=== PATIENT | male | born 1970 ===

== ENCOUNTER 2020-09-04 07:40 | Outpatient (REF) | payer OTHER, SELFPAY ==
[2020-09-04 08:45] LABS: MANUAL DIFF FLAG NO
[2020-09-04 08:52] LABS: Basophils Percent Auto 0.2 % (0-2); Eosinophils Absolute Auto 0.1 X10*3/uL (0.0-0.4); Eosinophils Percent Auto 0.9 % (0-4); Hemoglobin 15.3 g/dl (14.0-18.0); Imm Gran Abs Auto 0.07 X10*3/uL (0.00-0.03); Imm Gran Pct Auto 1.3 % (0.0-0.4); Lymphocytes Absolute Auto 1.5 X10*3/uL (1.2-4.9); Lymphocytes Percent Auto 26.8 % (20-40); Mean Corpuscular HGB Conc 33.3 g/dl (31.0-36.0); Mean Corpuscular Hemoglobin 28.7 pg (27.0-33.0); Mean Corpuscular Volume 86.1 fL (80-98); Monocytes Absolute Auto 0.6 X10*3/uL (0.1-1.2); Monocytes Percent Auto 11.4 % (2-11); Neutrophils Absolute Auto 3.3 X10*3/uL (2.0-8.3); Neutrophils Percent Auto 59.4 % (45-73); Platelet Count 305 X10*3/uL (160-400); Red Blood Count 5.34 X10*6/uL (4.60-5.80); Red Cell Distribution Width 12.6 % (11.0-16.0); White Blood Count 5.5 X10*3/uL (4.8-10.8)
[2020-09-04 09:05] LABS: Glucose Urine UA NEG (NEG); Leukocyte Esterase Urine NEG (NEG); Nitrite Urine NEG (NEG); Specific Gravity - Urine 1.025 (1.005-1.025); Urine Blood NEG (NEG); Urine Ketones NEG (NEG); Urine Protein NEG (NEG-TRACE)
[2020-09-04 09:07] LABS: Appearance Urine CLEAR; Color Urine YELLOW
[2020-09-04 09:17] LABS: Alanine Aminotransferase 41 U/L (0-40); Albumin Level 4.2 g/dL (3.5-5.0); Alkaline Phosphatase 86 U/L (39-117); Anion Gap 13 (12-20); Aspartate Amino Transferase 27 U/L (5-37); Bilirubin Total 0.4 mg/dL (0.0-1.0); Blood Urea Nitrogen 15 mg/dL (9-16); C Reactive Protein 1.96 mg/dL (< or = 0.50); Calcium 8.4 mg/dL (8.4-10.2); Carbon Dioxide 28 mmol/L (22-29); Chloride 105 mmol/L (96-108); Cholesterol 139 mg/dL; Estimated Glomerular Filt Rate > 60; Glucose Fasting 196 mg/dL (60-99); HDL Cholesterol 29 mg/dL; LDL Cholesterol Calculated 73 mg/dl; Potassium 4.4 mmol/l (3.3-5.1); Sodium 142 mmol/L (135-145); Total Protein 7.2 g/dL (6.5-8.0); Triglycerides 185 mg/dL
[2020-09-04 09:18] LABS: Creatinine Urine 124.44 mg/dL
[2020-09-04 09:41] LABS: TSH reflex Free T4 0.71 mIU/mL (0.32-4.0)
[2020-09-04 09:44] LABS: Erythrocyte Sedimentation Rate 23 MM/HR (0-15)
[2020-09-05 09:12] LABS: Lyme Abs Screen <0.90 index
[2020-09-05 21:23] LABS: Anti Nuclear Antibody Screen POSITIVE (NEGATIVE)
== END 2020-09-04 07:41 | disposition home or self-care (01) ==
LOC: HO.LAB 07:40
PROVIDERS: Visit Provider Internal Medicine
DX: R50.9 Fever, unspecified (principal); R51.9 Headache, unspecified; E78.2 Mixed hyperlipidemia; E11.9 Type 2 diabetes mellitus without complications
CPT/HCPCS: 36415; 80053; 80061; 81003; 82043; 84443; 85025; 85652; 86038; 86039; 86140; 86618; 87040

== ENCOUNTER 2020-09-10 08:17 | Outpatient (REF) | payer OTHER, SELFPAY ==
--- NOTE | 2020-09-10 08:21 | CT_ITS ---
EXAMINATION: CT HEAD WITHOUT CONTRAST CLINICAL INFORMATION: Headache COMPARISON: December 31, 2018 TECHNIQUE: Contiguous axial imaging was performed from the skull base to vertex without intravenous administration of contrast. This CT examination was performed using dose optimization techniques as appropriate, variously including the following: *Automated exposure control *Adjustment of mA and/or kV according to patient size (this includes techniques or standardized protocols for targeted exams where dose is matched to indication/reason for exam; i.e. extremities or head) *Use of iterative reconstruction technique DLP: 787 mGy-cm FINDINGS: There is no evidence of acute intracranial hemorrhage or territorial infarction. No abnormal mass effect or midline shift is seen. Ramirez to white matter differentiation is well preserved. No extra-axial fluid collections are identified. The ventricles are normal in size. There is no abnormal attenuation within the brain parenchyma. The osseous structures and soft tissues are normal. The mastoid air cells and visualized portions of the paranasal sinuses are well aerated. CT/CT head/brain wo con IMPRESSION: No acute intracranial pathology.
== END 2020-09-10 08:18 | disposition home or self-care (01) ==
LOC: HO.CT 08:17
PROVIDERS: PCP Internal Medicine; Visit Provider Internal Medicine
DX: R51.9 Headache, unspecified (principal); R50.9 Fever, unspecified
CPT/HCPCS: 70450

== ENCOUNTER 2021-03-26 15:31 | Outpatient (REF) | payer OTHER, SELFPAY ==
--- NOTE | ~2021-03-26 | XR_ITS ---
EXAMINATION: XR SHOULDER, RIGHT CLINICAL INFORMATION: Shoulder pain. COMPARISON: None. TECHNIQUE: AP external rotation, Grashey, scapular Y, and axillary views of the right shoulder. FINDINGS: There is no evidence of acute fracture or dislocation of the right shoulder. Glenohumeral joint with minimal spurring inferiorly. Acromioclavicular joint unremarkable. No evidence of calcific tendinitis. XR/XR shoulder RT min 2V IMPRESSION: Mild degenerative change without evidence of fracture, dislocation, or calcific tendinitis.
== END 2021-03-26 15:32 | disposition home or self-care (01) ==
LOC: HO.XRAY 15:31
PROVIDERS: PCP Internal Medicine; Visit Provider Internal Medicine
DX: M25.511 Pain in right shoulder (principal)
CPT/HCPCS: 73030

== ENCOUNTER → 2021-05-29 09:14 | Outpatient (BNVA) | payer OTHER, SELFPAY | PROVIDERS: Visit Provider Urology | DX: E29.1 Testicular hypofunction (principal); E11.65 Type 2 diabetes mellitus with hyperglycemia; N52.1 Erectile dysfunction due to diseases classified elsewhere | CPT/HCPCS: 99202 ==

== ENCOUNTER 2021-07-01 08:12 | Outpatient (REF) | payer OTHER, SELFPAY ==
[2021-07-01 08:33] LABS: MANUAL DIFF FLAG NO
[2021-07-01 08:51] LABS: Basophils Absolute Auto 0.1 X10*3/uL (0.0-0.2); Basophils Percent Auto 0.6 % (0-2); Eosinophils Absolute Auto 0.3 X10*3/uL (0.0-0.4); Eosinophils Percent Auto 3.7 % (0-4); Hematocrit 46.2 % (42-52); Hemoglobin 15.2 g/dl (14.0-18.0); Imm Gran Abs Auto 0.03 X10*3/uL (0.00-0.03); Imm Gran Pct Auto 0.4 % (0.0-0.4); Lymphocytes Absolute Auto 2.2 X10*3/uL (1.2-4.9); Lymphocytes Percent Auto 26.9 % (20-40); Mean Corpuscular HGB Conc 32.9 g/dl (31.0-36.0); Mean Corpuscular Hemoglobin 28.6 pg (27.0-33.0); Monocytes Absolute Auto 0.7 X10*3/uL (0.1-1.2); Monocytes Percent Auto 7.8 % (2-11); Neutrophils Absolute Auto 5.1 X10*3/uL (2.0-8.3); Neutrophils Percent Auto 60.6 % (45-73); Platelet Count 343 X10*3/uL (160-400); Red Blood Count 5.31 X10*6/uL (4.60-5.80); Red Cell Distribution Width 13.1 % (11.0-16.0); White Blood Count 8.3 X10*3/uL (4.8-10.8)
[2021-07-01 08:53] LABS: Appearance Urine CLEAR; Color Urine YELLOW; Glucose Urine UA NEG (NEG); Leukocyte Esterase Urine NEG (NEG); Nitrite Urine NEG (NEG); Specific Gravity - Urine 1.025 (1.005-1.025); UACC Culture Trigger NO; Urine Blood TRACE (NEG); Urine Ketones NEG (NEG); Urine Protein NEG (NEG-TRACE)
[2021-07-01 09:02] LABS: Estimated Average Glucose 166 mg/dL; Hemoglobin A1c % 7.4 %
[2021-07-01 09:08] LABS: Creatinine Urine 142.18 mg/dL
[2021-07-01 09:14] LABS: Alanine Aminotransferase 26 U/L (0-40); Albumin Level 4.3 g/dL (3.5-5.0); Alkaline Phosphatase 78 U/L (39-117); Anion Gap 12 (12-20); Aspartate Amino Transferase 18 U/L (5-37); Bilirubin Total 0.5 mg/dL (0.0-1.0); Blood Urea Nitrogen 11 mg/dL (9-16); Calcium 9.4 mg/dL (8.4-10.2); Carbon Dioxide 26 mmol/L (22-29); Chloride 107 mmol/L (96-108); Cholesterol 166 mg/dL; Estimated Glomerular Filt Rate > 60; Glucose Fasting 179 mg/dL (60-99); HDL Cholesterol 29 mg/dL; LDL Cholesterol Calculated 89 mg/dl; Potassium 4.4 mmol/L (3.3-5.1); Sodium 141 mmol/L (135-145); Total Protein 7.2 g/dL (6.5-8.0); Triglycerides 244 mg/dL
[2021-07-01 09:18] LABS: Uric Acid 7.9 mg/dL (3.4-7.0)
[2021-07-01 09:34] LABS: Erythrocyte Sedimentation Rate 2 MM/HR (0-15)
[2021-07-01 09:41] LABS: TSH reflex Free T4 0.69 uIU/mL (0.32-4.0)
[2021-07-01 10:30] LABS: RBC Urine 0-2 /HPF (0); Squamous Epithelial Cell Urine TRACE /LPF; WBC Urine 0 /HPF (0-4)
[2021-07-02 11:11] LABS: Sex Hormone Binding Globulin 14 nmol/L (10-50)
[2021-07-02 20:16] LABS: Follicle Stimulating Hormone 9.8 mIU/mL (1.6-8.0); Lutenizing Hormone 4.4 mIU/mL (1.5-9.3)
[2021-07-05 18:12] LABS: Testosterone, Free 68.7 pg/mL (35.0-155.0); Testosterone, Total 324 ng/dL (250-1100)
== END 2021-07-01 08:13 | disposition home or self-care (01) ==
LOC: HO.LAB 08:12
PROVIDERS: PCP Internal Medicine; Visit Provider Urology
DX: E29.1 Testicular hypofunction (principal); M10.00 Idiopathic gout, unspecified site; E11.9 Type 2 diabetes mellitus without complications; E66.9 Obesity, unspecified
CPT/HCPCS: 36415; 80053; 80061; 81001; 81003; 82043; 83001; 83002; 83036; 84270; 84402; 84403; 84443; 84550; 85025; 85652

== ENCOUNTER → 2021-07-12 08:32 | Outpatient (BNVA) | payer OTHER, SELFPAY | PROVIDERS: Visit Provider Urology ==

== ENCOUNTER → 2021-11-26 13:26 | Outpatient (BNVA) | payer OTHER, SELFPAY | PROVIDERS: PCP Internal Medicine; Visit Provider Urology ==

== ENCOUNTER 2022-02-27 07:49 | Outpatient (REF) | payer OTHER, SELFPAY ==
[2022-02-27 08:09] LABS: MANUAL DIFF FLAG NO
[2022-02-27 08:43] LABS: Basophils Absolute Auto 0.1 X10*3/uL (0.0-0.2); Basophils Percent Auto 0.7 % (0-2); Eosinophils Absolute Auto 0.2 X10*3/uL (0.0-0.4); Eosinophils Percent Auto 3.4 % (0-4); Hematocrit 46.6 % (42.0-52.0); Imm Gran Abs Auto 0.05 X10*3/uL (0.00-0.03); Imm Gran Pct Auto 0.7 % (0.0-0.4); Lymphocytes Percent Auto 27.4 % (20-40); Mean Corpuscular HGB Conc 32.2 g/dl (31.0-36.0); Mean Corpuscular Hemoglobin 28.1 pg (27.0-33.0); Mean Corpuscular Volume 87.3 fL (80.0-98.0); Mean Platelet Volume 9.6 fL (9.4-12.4); Monocytes Absolute Auto 0.6 X10*3/uL (0.1-1.2); Monocytes Percent Auto 8.4 % (2-11); Neutrophils Absolute Auto 4.2 x10*3/uL (2.0-8.3); Neutrophils Percent Auto 59.4 % (45-73); Platelet Count 324 X10*3/uL (160-400); Red Blood Count 5.34 X10*6/uL (4.60-5.80); Red Cell Distribution Width 13.6 % (11.0-16.0); White Blood Count 7.1 X10*3/uL (4.8-10.8)
[2022-02-27 08:54] LABS: Estimated Average Glucose 137 mg/dL; Hemoglobin A1c % 6.4 %
[2022-02-27 09:00] LABS: Appearance Urine CLEAR; Color Urine YELLOW; Glucose Urine UA NEG (NEG); Leukocyte Esterase Urine NEG (NEG); Nitrite Urine NEG (NEG); UACC Culture Trigger NO; Urine Blood TRACE (NEG); Urine Ketones NEG (NEG); Urine Protein NEG (NEG-TRACE)
[2022-02-27 09:12] LABS: Alanine Aminotransferase 19 U/L (0-40); Albumin Level 4.4 g/dL (3.5-5.0); Alkaline Phosphatase 73 U/L (39-117); Anion Gap 12 (12-20); Aspartate Amino Transferase 15 U/L (5-37); Bilirubin Total 0.7 mg/dL (0.0-1.0); Blood Urea Nitrogen 21 mg/dL (9-16); Calcium 9.5 mg/dL (8.4-10.2); Carbon Dioxide 28 mmol/L (22-29); Chloride 103 mmol/L (96-108); Cholesterol 147 mg/dL; Estimated Glomerular Filt Rate > 60; Glucose Fasting 137 mg/dL (60-99); HDL Cholesterol 36 mg/dL; LDL Cholesterol Calculated 87 mg/dl; Potassium 4.3 mmol/L (3.3-5.1); Sodium 139 mmol/L (135-145); Total Protein 7.1 g/dL (6.5-8.0); Triglycerides 121 mg/dL
[2022-02-27 09:17] LABS: WBC Urine 0 /HPF (0-4)
[2022-02-27 09:31] LABS: TSH reflex Free T4 0.66 uIU/mL (0.32-4.0); Vitamin D 25-OH Total 26.2 ng/mL (>30)
[2022-02-27 09:58] LABS: Creatinine Urine 76.95 mg/dL; Microalbumin Urine < 5.0 mg/L
== END 2022-02-27 07:50 | disposition home or self-care (01) ==
LOC: HO.LAB 07:49
PROVIDERS: PCP Internal Medicine; Visit Provider Internal Medicine
DX: E78.00 Pure hypercholesterolemia, unspecified (principal); I10 Essential (primary) hypertension; E55.9 Vitamin D deficiency, unspecified; M10.9 Gout, unspecified; E11.9 Type 2 diabetes mellitus without complications
CPT/HCPCS: 36415; 80053; 80061; 81001; 81003; 82043; 82306; 83036; 84443; 84550; 85025

== ENCOUNTER 2022-07-11 07:30 | Outpatient (REF) | payer OTHER, SELFPAY ==
[2022-07-11 07:40] LABS: MANUAL DIFF FLAG NO
[2022-07-11 09:00] LABS: Basophils Absolute Auto 0.1 X10*3/uL (0.0-0.2); Basophils Percent Auto 0.8 % (0-2); Eosinophils Absolute Auto 0.3 X10*3/uL (0.0-0.4); Eosinophils Percent Auto 3.7 % (0-4); Hematocrit 47.6 % (42.0-52.0); Hemoglobin 15.7 g/dl (14.0-18.0); Imm Gran Abs Auto 0.03 X10*3/uL (0.00-0.03); Imm Gran Pct Auto 0.4 % (0.0-0.4); Lymphocytes Absolute Auto 2.4 X10*3/uL (1.2-4.9); Lymphocytes Percent Auto 28.1 % (20-40); Mean Corpuscular Hemoglobin 28.9 pg (27.0-33.0); Mean Corpuscular Volume 87.7 fL (80.0-98.0); Mean Platelet Volume 9.8 fL (9.4-12.4); Monocytes Absolute Auto 0.6 X10*3/uL (0.1-1.2); Monocytes Percent Auto 7.7 % (2-11); Neutrophils Percent Auto 59.3 % (45-73); Platelet Count 356 X10*3/uL (160-400); Red Blood Count 5.43 X10*6/uL (4.60-5.80); White Blood Count 8.4 X10*3/uL (4.8-10.8)
[2022-07-11 09:09] LABS: Estimated Average Glucose 140 mg/dL; Hemoglobin A1c % 6.5 %
[2022-07-11 09:24] LABS: Appearance Urine Clear; Color Urine Yellow; Glucose Urine UA Negative (Negative); Leukocyte Esterase Urine Negative (Negative); Nitrite Urine Negative (Negative); Urine Blood Negative (Negative); Urine Ketones Negative (Negative); Urine Protein Negative (Neg-Trace)
[2022-07-11 09:37] LABS: Alanine Aminotransferase 21 U/L (0-40); Albumin Level 4.6 g/dL (3.5-5.0); Alkaline Phosphatase 75 U/L (39-117); Anion Gap 17 (12-20); Aspartate Amino Transferase 17 U/L (5-37); Bilirubin Total 0.9 mg/dL (0.0-1.0); Blood Urea Nitrogen 23 mg/dL (9-16); Calcium 9.8 mg/dL (8.4-10.2); Carbon Dioxide 26 mmol/L (22-29); Chloride 102 mmol/L (96-108); Cholesterol 179 mg/dL; Estimated Glomerular Filt Rate > 60; Glucose Fasting 148 mg/dL (60-99); HDL Cholesterol 36 mg/dL; LDL Cholesterol Calculated 103 mg/dl; Potassium 4.6 mmol/L (3.3-5.1); Sodium 140 mmol/L (135-145); Total Protein 7.7 g/dL (6.5-8.0); Triglycerides 203 mg/dL; Uric Acid 8.2 mg/dL (3.4-7.0)
[2022-07-11 09:48] LABS: TSH reflex Free T4 0.68 uIU/mL (0.32-4.0); Vitamin D 25-OH Total 37.2 ng/mL (>30)
== END 2022-07-11 07:31 | disposition home or self-care (01) ==
LOC: HO.LAB 07:30
PROVIDERS: PCP Internal Medicine; Visit Provider Internal Medicine
DX: E78.00 Pure hypercholesterolemia, unspecified (principal); E11.9 Type 2 diabetes mellitus without complications; M10.9 Gout, unspecified; E55.9 Vitamin D deficiency, unspecified; I10 Essential (primary) hypertension
CPT/HCPCS: 36415; 80053; 80061; 81003; 82306; 83036; 84443; 84550; 85025

== ENCOUNTER 2022-11-21 07:29 | Outpatient (REF) | payer OTHER, SELFPAY ==
[2022-11-21 07:42] LABS: MANUAL DIFF FLAG NO
[2022-11-21 08:13] LABS: Basophils Absolute Auto 0.1 X10*3/uL (0.0-0.2); Basophils Percent Auto 0.8 % (0-2); Eosinophils Absolute Auto 0.3 X10*3/uL (0.0-0.4); Eosinophils Percent Auto 4.3 % (0-4); Hematocrit 45.5 % (42.0-52.0); Hemoglobin 15.3 g/dl (14.0-18.0); Imm Gran Abs Auto 0.03 X10*3/uL (0.00-0.03); Imm Gran Pct Auto 0.4 % (0.0-0.4); Lymphocytes Absolute Auto 2.4 X10*3/uL (1.2-4.9); Lymphocytes Percent Auto 29.6 % (20-40); Mean Corpuscular HGB Conc 33.6 g/dl (31.0-36.0); Mean Corpuscular Hemoglobin 28.7 pg (27.0-33.0); Mean Corpuscular Volume 85.4 fL (80.0-98.0); Mean Platelet Volume 9.7 fL (9.4-12.4); Monocytes Absolute Auto 0.6 X10*3/uL (0.1-1.2); Neutrophils Absolute Auto 4.5 x10*3/uL (2.0-8.3); Neutrophils Percent Auto 56.9 % (45-73); Platelet Count 340 X10*3/uL (160-400); Red Blood Count 5.33 X10*6/uL (4.60-5.80); Red Cell Distribution Width 12.6 % (11.0-16.0)
[2022-11-21 08:25] LABS: Estimated Average Glucose 148 mg/dL; Hemoglobin A1c % 6.8 %
[2022-11-21 08:47] LABS: Alanine Aminotransferase 31 U/L (0-40); Albumin Level 4.4 g/dL (3.5-5.0); Alkaline Phosphatase 75 U/L (39-117); Anion Gap 13 (12-20); Aspartate Amino Transferase 20 U/L (5-37); Bilirubin Total 0.7 mg/dL (0.0-1.0); Blood Urea Nitrogen 18 mg/dL (9-16); Calcium 9.3 mg/dL (8.4-10.2); Carbon Dioxide 28 mmol/L (22-29); Chloride 104 mmol/L (96-108); Cholesterol 170 mg/dL; Estimated Glomerular Filt Rate > 60; Glucose Fasting 144 mg/dL (60-99); HDL Cholesterol 33 mg/dL; LDL Cholesterol Calculated 101 mg/dl; Potassium 4.5 mmol/L (3.3-5.1); Sodium 140 mmol/L (135-145); Total Protein 7.1 g/dL (6.5-8.0); Triglycerides 183 mg/dL
[2022-11-21 08:53] LABS: Appearance Urine Clear; Color Urine Yellow; Glucose Urine UA Negative (Negative); Leukocyte Esterase Urine Negative (Negative); Nitrite Urine Negative (Negative); Urine Blood Negative (Negative); Urine Ketones Negative (Negative); Urine Protein Negative (Neg-Trace)
[2022-11-21 09:20] LABS: TSH reflex Free T4 0.61 uIU/mL (0.32-4.0); Vitamin D 25-OH Total 43.5 ng/mL (>30)
[2022-11-21 09:30] LABS: Creatinine Urine 106.55 mg/dL; Microalbumin Urine < 5.0 mg/L
== END 2022-11-21 07:30 | disposition home or self-care (01) ==
LOC: HO.LAB 07:29
PROVIDERS: PCP Internal Medicine; Visit Provider Internal Medicine
DX: E78.00 Pure hypercholesterolemia, unspecified (principal); I10 Essential (primary) hypertension; E11.9 Type 2 diabetes mellitus without complications; M10.9 Gout, unspecified; R30.0 Dysuria; E55.9 Vitamin D deficiency, unspecified
CPT/HCPCS: 36415; 80053; 80061; 81003; 82043; 82306; 83036; 84443; 84550; 85025

== ENCOUNTER 2022-12-16 13:25 | Outpatient (REF) | payer OTHER, SELFPAY ==
--- NOTE | ~2022-12-16 | XR_ITS ---
EXAMINATION: XR CERVICAL SPINE CLINICAL INFORMATION: Neck pain COMPARISON: None available. TECHNIQUE: 3 views of the cervical spine were obtained. FINDINGS: Bone alignment is normal. No fracture or dislocation. Mild degenerative spondylosis at C 5 6 and C6-C7. Normal disc spaces. Normal prevertebral soft tissues. XR/XR cervical spine 2V IMPRESSION: Mild degenerative changes.
== END 2022-12-16 13:26 | disposition home or self-care (01) ==
LOC: HO.XRAY 13:25
PROVIDERS: PCP Internal Medicine; Visit Provider Nurse Practitioner Family
DX: M54.2 Cervicalgia (principal)
CPT/HCPCS: 72040

== ENCOUNTER 2022-12-29 15:01 | Outpatient (REF) | payer OTHER, SELFPAY ==
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
== END 2022-12-29 15:02 | disposition home or self-care (01) ==
LOC: HO.CT 15:01
PROVIDERS: PCP Internal Medicine; Visit Provider Nurse Practitioner Family
DX: R51.9 Headache, unspecified (principal); M54.6 Pain in thoracic spine; V89.2XXA Person injured in unspecified motor-vehicle accident, traffic, initial encounter
CPT/HCPCS: 70450; 72070

== ENCOUNTER 2023-05-11 06:59 | Outpatient (REF) | payer OTHER, SELFPAY ==
[2023-05-11 07:09] LABS: MANUAL DIFF FLAG NO
[2023-05-11 07:25] LABS: Basophils Absolute Auto 0.1 X10*3/uL (0.0-0.2); Basophils Percent Auto 0.8 % (0-2); Eosinophils Absolute Auto 0.3 X10*3/uL (0.0-0.4); Eosinophils Percent Auto 3.8 % (0-4); Hematocrit 47.5 % (42.0-52.0); Hemoglobin 15.8 g/dl (14.0-18.0); Imm Gran Abs Auto 0.04 X10*3/uL (0.00-0.03); Imm Gran Pct Auto 0.5 % (0.0-0.4); Lymphocytes Absolute Auto 2.3 X10*3/uL (1.2-4.9); Lymphocytes Percent Auto 26.7 % (20-40); Mean Corpuscular HGB Conc 33.3 g/dl (31.0-36.0); Mean Corpuscular Hemoglobin 29.1 pg (27.0-33.0); Mean Corpuscular Volume 87.5 fL (80.0-98.0); Monocytes Absolute Auto 0.8 X10*3/uL (0.1-1.2); Monocytes Percent Auto 9.1 % (2-11); Neutrophils Absolute Auto 5.1 x10*3/uL (2.0-8.3); Neutrophils Percent Auto 59.1 % (45-73); Platelet Count 335 X10*3/uL (160-400); Red Blood Count 5.43 X10*6/uL (4.60-5.80); Red Cell Distribution Width 13.1 % (11.0-16.0); White Blood Count 8.7 X10*3/uL (4.8-10.8)
[2023-05-11 07:27] LABS: Estimated Average Glucose 134 mg/dL; Hemoglobin A1c % 6.3 %
[2023-05-11 07:37] LABS: Appearance Urine Clear; Color Urine Yellow; Glucose Urine UA Negative (Negative); Leukocyte Esterase Urine Negative (Negative); Nitrite Urine Negative (Negative); PH 5.5 (5.0-9.0); Specific Gravity - Urine 1.025 (1.005-1.025); UMIC TRIGGER UACC YES; Urine Blood Trace (Negative); Urine Ketones Negative (Negative); Urine Protein Negative (Neg-Trace)
[2023-05-11 07:45] LABS: Bacteria Urine None Seen (None Seen); Hyaline Casts Urine 0-2 /LPF (0-2); RBC Urine 0-2 /HPF (0-2); Squamous Epithelial Cell Urine 0-2 /HPF (0-2); WBC Urine 0-5 /HPF (0-5)
[2023-05-11 07:50] LABS: Alanine Aminotransferase 33 U/L (0-40); Albumin Level 4.2 g/dL (3.5-5.0); Alkaline Phosphatase 74 U/L (39-117); Anion Gap 13 (12-20); Aspartate Amino Transferase 19 U/L (5-37); Bilirubin Total 0.4 mg/dL (0.0-1.0); Blood Urea Nitrogen 15 mg/dL (9-16); Calcium 9.4 mg/dL (8.4-10.2); Carbon Dioxide 27 mmol/L (22-29); Chloride 105 mmol/L (96-108); Cholesterol 198 mg/dL; Estimated Glomerular Filt Rate > 60; Glucose Fasting 160 mg/dL (60-99); HDL Cholesterol 37 mg/dL; LDL Cholesterol Calculated 118 mg/dl; Potassium 4.1 mmol/L (3.3-5.1); Sodium 141 mmol/L (135-145); Total Protein 7.3 g/dL (6.5-8.0); Triglycerides 218 mg/dL; Uric Acid 9.5 mg/dL (3.4-7.0)
[2023-05-11 07:50] LABS: Creatinine Urine 121.24 mg/dL; Microalbumin Urine < 5.0 mg/L
[2023-05-11 08:05] LABS: TSH reflex Free T4 0.48 uIU/mL (0.32-4.0); Vitamin D 25-OH Total 49.5 ng/mL (>30)
== END 2023-05-11 07:00 | disposition home or self-care (01) ==
LOC: HO.LAB 06:59
PROVIDERS: PCP Internal Medicine; Visit Provider Internal Medicine
DX: Z00.00 Encounter for general adult medical examination without abnormal findings (principal); E55.9 Vitamin D deficiency, unspecified; M10.9 Gout, unspecified; E78.00 Pure hypercholesterolemia, unspecified; E11.9 Type 2 diabetes mellitus without complications; I10 Essential (primary) hypertension; R30.0 Dysuria
CPT/HCPCS: 36415; 80053; 80061; 81001; 82043; 82306; 83036; 84153; 84443; 84550; 85025

== ENCOUNTER 2023-05-13 14:38 | Outpatient (AMB) | payer OTHER, SELFPAY ==
[2023-05-13 14:50] VITALS: BP 116/78; PULSE 69; O2SAT 99; BMI 28.5
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
== END 2023-05-13 16:10 | disposition home or self-care (01) ==
PROVIDERS: PCP Internal Medicine; Visit Provider Internal Medicine
DX: Z00.00 Encounter for general adult medical examination without abnormal findings (principal); E11.9 Type 2 diabetes mellitus without complications; E78.2 Mixed hyperlipidemia; E55.9 Vitamin D deficiency, unspecified; M10.00 Idiopathic gout, unspecified site; M25.562 Pain in left knee; N52.9 Male erectile dysfunction, unspecified; E66.3 Overweight; Z12.11 Encounter for screening for malignant neoplasm of colon
CPT/HCPCS: 99396

== ENCOUNTER 2023-06-12 12:16 | Outpatient (AMB) | payer OTHER, SELFPAY ==
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
== END 2023-06-12 16:05 | disposition home or self-care (01) ==
LOC: HO.HUSH 12:16
PROVIDERS: PCP Internal Medicine; Visit Provider Urology
DX: E29.1 Testicular hypofunction (principal); E11.69 Type 2 diabetes mellitus with other specified complication; N52.1 Erectile dysfunction due to diseases classified elsewhere
CPT/HCPCS: 99214

== ENCOUNTER → 2023-06-12 12:16 | Outpatient (BNVA) | payer OTHER, SELFPAY | PROVIDERS: PCP Internal Medicine; Visit Provider Urology ==

== ENCOUNTER 2023-06-13 08:16 | Outpatient (REF) | payer OTHER, SELFPAY ==
[2023-06-13 09:08] LABS: Appearance Urine Clear; Color Urine Yellow; Glucose Urine UA Negative (Negative); Leukocyte Esterase Urine Negative (Negative); Nitrite Urine Negative (Negative); PH 6.5 (5.0-9.0); Urine Blood Negative (Negative); Urine Ketones Negative (Negative); Urine Protein Negative (Neg-Trace)
[2023-06-13 09:30] LABS: Alanine Aminotransferase 21 U/L (0-40); Albumin Level 4.2 g/dL (3.5-5.0); Alkaline Phosphatase 77 U/L (39-117); Anion Gap 17 (12-20); Aspartate Amino Transferase 18 U/L (5-37); Bilirubin Total 0.5 mg/dL (0.0-1.0); Blood Urea Nitrogen 19 mg/dL (9-16); Calcium 9.4 mg/dL (8.4-10.2); Carbon Dioxide 24 mmol/L (22-29); Chloride 104 mmol/L (96-108); Cholesterol 151 mg/dL (<200); Estimated Glomerular Filt Rate > 60; Glucose Fasting 158 mg/dL (60-99); HDL Cholesterol 34 mg/dL (>40); LDL Cholesterol Calculated 93 mg/dL (<100); Potassium 4.5 mmol/L (3.3-5.1); Sodium 140 mmol/L (135-145); Total Protein 7.5 g/dL (6.5-8.0); Triglycerides 124 mg/dL (<150); Uric Acid 8.7 mg/dL (3.4-7.0)
[2023-06-13 10:52] LABS: Estimated Average Glucose 140 mg/dL; Hemoglobin A1c % 6.5 % (<6.0)
[2023-06-15 06:34] LABS: Follicle Stimulating Hormone 11.5 mIU/mL (1.6-8.0); Sex Hormone Binding Globulin 15 nmol/L (10-50)
[2023-06-18 10:14] LABS: Testosterone, Total 352 ng/dL (250-1100)
== END 2023-06-13 08:17 | disposition home or self-care (01) ==
LOC: HO.LAB 08:16
PROVIDERS: PCP Internal Medicine; Visit Provider Urology
DX: Z00.00 Encounter for general adult medical examination without abnormal findings (principal); E29.1 Testicular hypofunction; R68.82 Decreased libido; E11.69 Type 2 diabetes mellitus with other specified complication; N52.1 Erectile dysfunction due to diseases classified elsewhere; M10.9 Gout, unspecified; E78.00 Pure hypercholesterolemia, unspecified; E11.9 Type 2 diabetes mellitus without complications; R30.0 Dysuria
CPT/HCPCS: 36415; 80053; 80061; 81003; 83001; 83002; 83036; 84270; 84402; 84403; 84550

== ENCOUNTER 2023-07-07 13:21 | Outpatient (AMB) | payer OTHER, SELFPAY ==
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
== END 2023-07-07 15:30 | disposition home or self-care (01) ==
LOC: HO.HUSH 13:21
PROVIDERS: PCP Internal Medicine; Visit Provider Urology
DX: E11.69 Type 2 diabetes mellitus with other specified complication (principal); N52.1 Erectile dysfunction due to diseases classified elsewhere
CPT/HCPCS: 99213

== ENCOUNTER → 2023-07-07 13:21 | Outpatient (BNVA) | payer OTHER, SELFPAY | PROVIDERS: PCP Internal Medicine; Visit Provider Urology ==

== ENCOUNTER 2023-07-16 15:16 | Outpatient (AMB) | payer OTHER, SELFPAY ==
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
[2023-07-16 15:20] VITALS: BP 103/69; PULSE 65; BMI 26.7
== END 2023-07-16 15:55 | disposition home or self-care (01) ==
PROVIDERS: PCP Internal Medicine; Visit Provider Nurse Practitioner
DX: Z01.818 Encounter for other preprocedural examination (principal)
CPT/HCPCS: 99203

== ENCOUNTER → 2023-07-16 15:16 | Outpatient (BNVA) | payer OTHER, SELFPAY | PROVIDERS: PCP Internal Medicine; Visit Provider Nurse Practitioner | DX: Z12.11 Encounter for screening for malignant neoplasm of colon (principal) | CPT/HCPCS: 99202 ==

== ENCOUNTER 2023-09-10 11:15 | Outpatient (AMB) | payer OTHER, SELFPAY ==
--- NOTE | 2023-09-10 11:26 | MHC.PC.OV ---
Vital Signs 09/10/23 11:27 Height 5 ft 10 in Weight 185 lb 8 oz BMI 26.6 BP 110/68 Blood Pressure Location Lt brachial Position Sitting Pulse 71 Pulse Source Pulse Oximeter Pulse Oximetry (%) 96 Oxygen Delivery Method Room Air Intake Visit Reasons: 4 month f/u Cause Analyst Required: No Accompanied by: Self / Same As Patient Allergies No Known Allergies Allergy (Verified 09/10/23 11:57) Medication List - Last Reconciled 09/10/23 by Juan Ngo MD allopurinol 300 mg PO DAILY PRN blood sugar diagnostic (FreeStyle Lite Strips) As directed once a day - Dx: E11.9 -- diabetes blood-glucose meter (FreeStyle Lite Meter kit) As directed - Dx: E11.9 -- diabetes cholecalciferol (vitamin D3) 50 mcg PO DAILY 90 days colchicine 0.6 mg PO DAILY PRN cyclobenzaprine 5 mg PO TID PRN indomethacin 50 mg PO BID PRN 30 days lancets (FreeStyle Lancets) As directed metformin ER 1,000 mg (2 x 500 mg) PO BID peg 3350-electrolytes 236-22.74-6.74 -5.86 gram (Golytely) 240 mL PO Q10M 1 day sildenafil 100 mg PO ONCE PRN 30 days sitagliptin phosphate (Januvia) 100 mg PO DAILY 90 days tadalafil 10 mg PO DAILY 90 days Tobacco use date assessed: 09/10/23 Dental Screening Dental Screen Date: 09/10/23 Did you have a dental visit in the last 12 months?: Yes Did you have a dental problem in the last 6 months where you did not have access to dental care?: No Was dental information given to patient?: Patient has dentist HPI 4 month f/u HPI Details Patient comes in today for his follow up visit States that he feels okay He denies any headaches or dizziness Denies any chest pains, no SOB No nausea/vomiting, no abdominal pain No change in bowel habits noted Had his follow up labs done a few months ago; has no other labs done recently He is now scheduled for his screening colonoscopy on 12/31/23 [facility] Medical History (Updated 09/10/23 @ 12:01 by Juan Ngo MD) Erectile dysfunction Gout Obesity (BMI 30-39.9) Mixed hyperlipidemia Diabetes mellitus Surgical History History of eye surgery Family History Father No problems noted. 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 1. Little interest or pleasure in doing things: not at all 2. Feeling down, depressed, or hopeless: not at all 3. Trouble falling or staying asleep, or sleeping too much: not at all 4. Feeling tired or having little energy: not at all 5. Poor appetite or overeating: not at all 6. Feeling bad about yourself - or that you are a failure or have let yourself or your family down: not at all 7. Trouble concentrating on things, such as reading the newspaper or watching television: not at all 8. Moving or speaking so slowly that other people could have noticed. Or the opposite - being so fidgety or restless that you have been moving around a lot more than usual: not at all 9. Thoughts that you would be better off or of hurting yourself in some way: not at all Total score: 0 Depression Screening Interpretation: Negative Depression Screening Done: Yes 53883 - PHQ-9 Billing: Yes Source: Developed by Drs. Thuan Merchant, Shana Coppola, Agustín Jane and colleagues, with an educational yamil from [employer]. Thrive Questionnaire Date Thrive assessed: 09/10/23 I am a: Patient What is your living situation today?: I have a steady place to live Within the past 12 months, did the food you bought not last and you didn't have the money to get more?: Never true Within the past 12 months, did you worry whether your food would run out before you got money to buy more?: Never true Do you have trouble paying for medicines?: No Do you have trouble getting transportation to medical appointments?: No Do you have trouble paying your heating and electricity bill?: No Do you have trouble taking care of your child, family member or friend?: No Do you have trouble with day-to-day activities such as bathing, preparing meals, shopping, managing finances, etc.?: No Are you currently unemployed and looking for a job?: No Are you interested in more education?: No Please select the resources that you would like help with: None Currently or been in a relationship where the following occur: no concerns reported AUDIT C Alcohol Use Questionnaire (AUDIT-C) 1. How often do you have a drink containing alcohol?: Never 3. How often do you have six or more drinks on one occasion?: Never Total Score: 0 Score Reviewed/Action Taken: Yes MEJIA-7 AMB Questionnaire MEJIA-7 Date MEJIA - 7 assessed: 09/10/23 Feeling nervous, anxious, or on edge: 0 = Not at all Not being able to stop or control worryin = Not at all Worrying too much about different things: 0 = Not at all Trouble relaxin = Not at all Being so restless that it is hard to sit still: 0 = Not at all Becoming easily annoyed or irritable: 0 = Not at all Feeling afraid as if something awful might happen: 0 = Not at all Total MEJIA-7 score (0-4 normal; 5-9 mild; 10-14 moderate; 15-21 severe): 0 Source: Developed by Drs. Thuan Merchant, Shana Coppola, Agustín Jane and colleagues, with an educational yamil from [employer]. Review of Systems Const Denies fatigue, Denies fever(s) and Denies headache(s) ENT Denies dysphagia, Denies dizziness, Denies otalgia, Denies headache(s), Denies neck pain, Denies odynophagia and Denies sore throat Card Denies chest pain, Denies palpitations and Denies dyspnea Resp Denies cough and Denies dyspnea GI Denies abdominal pain, Denies constipation, Denies dysphagia, Denies heartburn, Denies diarrhea, Denies nausea, Denies odynophagia and Denies vomiting Denies dysuria, Denies nocturia and Denies urinary frequency Musc Denies back pain and Denies neck pain Skin/Breast Denies rash Neuro Denies dizziness and Denies headache(s) Endo Denies fatigue and Denies palpitations Physical exam (Primary Care) Vital Signs: Last Vital Signs Pulse 71 09/10/23 11:27 BP 110/68 09/10/23 11:27 Pulse Ox 96 09/10/23 11:27 Oxygen Delivery Method Room Air 09/10/23 11:27 BMI result Body Mass Index 26.6 Tobacco/Smoking Status: Tobacco use Status Tobacco use date assessed 09/10/23 09/10/23 11:28 Patient Tobacco Use Status Never used Tobacco 09/10/23 11:28 e-Cigarette/Vaping Use Never Used 09/10/23 11:28 PHQ-9: PHQ-9 Score PHQ-9: Total score 0 09/10/23 12:09 Depression Screening Interpretation: Negative Thrive Assessment: Date of Thrive Assessment Date Thrive assessed 09/10/23 09/10/23 11:28 Currently or been in a relationship where the following occur: no concerns reported Const General: no acute distress and alert HENMT Ears: TM's normal bilaterally and EAC's normal Throat: Yes posterior oropharynx normal and Yes tonsils normal (no TP congestion) Neck Neck: Yes no lymphadenopathy and Yes supple Resp Auscultation: clear to auscultation bilaterally, no rales and no wheezes Cardio Rate: regular rate Rhythm: regular rhythm Heart sounds: no murmurs GI Palpation (GI): Soft to palpation, nontender and No hepatosplenomegaly present Skin General skin exam: no rashes or lesions noted Extrem General: Yes no clubbing, cyanosis or edema Results AMB Hemoglobin A1c AMB Hemoglobin A1c 6.4 % Last Edit by Melissa Peres on 09/10/23 12:10 Results Reviewed Results Reviewed: Laboratory Last Values Hgb A1c (Clinic) 6.4 % (4.0-6.0) H 09/10/23 12:01 Laboratory Tests 05/11/23 05/11/23 05/11/23 07:08 07:08 07:08 WBC 8.7 Hgb 15.8 Hct 47.5 Plt Count 335 Sodium Potassium Creatinine Estimated GFR Fasting Glucose Hemoglobin A1c % Uric Acid Calcium AST ALT Triglycerides Cholesterol LDL Cholesterol, Calc HDL Cholesterol PSA Screen 1.10 25-OH Vitamin D Total 49.5 TSH 0.48 Total Testosterone Ur Specific [place] Urine Protein Urine Glucose (UA) Urine Blood 06/13/23 06/13/23 06/13/23 08:47 08:47 08:47 WBC Hgb Hct Plt Count Sodium 140 Potassium 4.5 Creatinine 0.98 Estimated GFR > 60 Fasting Glucose 158 H Hemoglobin A1c % 6.5 H Uric Acid 8.7 H Calcium 9.4 AST 18 ALT 21 Triglycerides 124 Cholesterol 151 LDL Cholesterol, Calc 93 HDL Cholesterol 34 L PSA Screen 25-OH Vitamin D Total TSH Total Testosterone 352 Ur Specific [place] Urine Protein Urine Glucose (UA) Urine Blood 06/13/23 06/13/23 08:48 08:48 WBC Hgb Hct Plt Count Sodium Potassium Creatinine Estimated GFR Fasting Glucose Hemoglobin A1c % Uric Acid Calcium AST ALT Triglycerides Cholesterol LDL Cholesterol, Calc HDL Cholesterol PSA Screen 25-OH Vitamin D Total TSH Total Testosterone Ur Specific [place] 1.020 Urine Protein Negative Urine Glucose (UA) Negative Urine Blood Negative Assessment and Plan Assessment & Plan (1) Diabetes mellitus: Code(s): E11.9 - Type 2 diabetes mellitus without complications Qualifiers: Diabetes mellitus complication status: without complication 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: without 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 use Diabetes mellitus type: type 2 Qualified Code(s): E11.9 - Type 2 diabetes mellitus without complications Plan: In-office HgbA1c done today is at 6.4% (HgbA1c was at 6.3% a few months ago) - goal is < 7.0% Reinforced diabetic diet Continue Januvia 100 mg QD in AM and Metformin ER 500 mg 2 tablets (1000 mg) BID (2) Mixed hyperlipidemia: Code(s): E78.2 - Mixed hyperlipidemia Plan: Reinforced low cholesterol diet Will recheck his labs and fasting lipids in 4 months for follow up (3) Gout: Code(s): M10.9 - Gout, unspecified Qualifiers: Chronicity: unspecified Gout etiology: idiopathic Gout site: unspecified site Qualified Code(s): M10.00 - Idiopathic gout, unspecified site Plan: Reinforced low purine diet Serum uric acid level was still elevated at 8.7 when last checked in May 2023 He still reports NO acute gout flare ups lately Continue Allopurinol 300 mg QD and Colchicine 0.6 mg BID Continue Indomethacin 50 mg BID PRN Will recheck his serum uric acid level in 4 months for follow up (4) Left knee pain: Code(s): M25.562 - Pain in left knee Qualifiers: Chronicity: unspecified Qualified Code(s): M25.562 - Pain in left knee Plan: Improved/resolved with no recurrence - was most likely due to gout and/or OA Uses a knee brace when needed but he has not had to use his brace in a while now Continue Indomethacin 50 mg BID PRN (5) Vitamin D deficiency: Code(s): E55.9 - Vitamin D deficiency, unspecified Plan: Continue Vitamin D3 2000 units QD (6) Erectile dysfunction: Code(s): N52.9 - Male erectile dysfunction, unspecified Qualifiers: Erectile dysfunction type: unspecified Qualified Code(s): N52.9 - Male erectile dysfunction, unspecified Plan: Continue Tadalafil 10 mg QD PRN Follow up with urology as scheduled (7) Overweight (BMI 25.0-29.9): Code(s): E66.3 - Overweight Plan: Reinforced diet/exercise as tolerated/lose weight Plan Patient declined flu vaccine today Follow up in 4 months Orders: Orders Comprehensive [place]. Panel Fast 4 Months E78.00 - Pure hypercholesterolemia, unspecified Lipid Panel 4 Months E78.00 - Pure hypercholesterolemia, unspecified Hemoglobin A1c 4 Months E11.9 - Type 2 diabetes mellitus without complications Vitamin D 25-OH Total 4 Months E55.9 - Vitamin D deficiency, unspecified Complete Blood Count Auto Diff 4 Months E11.9 - Type 2 diabetes mellitus without complications, M10.9 - Gout, unspecified Uric Acid 4 Months M10.9 - Gout, unspecified UA CC w/rflx Micro + Cult 4 Months R30.0 - Dysuria TSH reflex Free T4 4 Months E78.00 - Pure hypercholesterolemia, unspecified Microalbumin, Random (w Creat) 4 Months E11.9 - Type 2 diabetes mellitus without complications AMB Hemoglobin A1c Today Z13.9 - Encounter for screening, unspecified Coding Level of Care Code Est Pt Level 4 (71873) Diagnoses Type 2 diabetes mellitus without complication, without long-term current use of insulin E11.9 Diabetes mellitus complication status: without complication 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
[2023-09-10 11:27] VITALS: BP 110/68; PULSE 71; O2SAT 96; BMI 26.6
== END 2023-09-10 12:09 | disposition home or self-care (01) ==
PROVIDERS: PCP Internal Medicine; Visit Provider Internal Medicine
DX: E11.9 Type 2 diabetes mellitus without complications (principal); E78.2 Mixed hyperlipidemia; M10.00 Idiopathic gout, unspecified site; M25.562 Pain in left knee; E55.9 Vitamin D deficiency, unspecified; N52.9 Male erectile dysfunction, unspecified
CPT/HCPCS: 83036; 99214

== ENCOUNTER 2023-12-16 11:12 | Outpatient (AMB) | payer OTHER, SELFPAY ==
[2023-12-16 11:57] VITALS: BP 112/60; PULSE 63; TEMP 36.7; O2SAT 98; BMI 26.7
--- NOTE | 2023-12-16 11:57 | AM.OFFWIN_ITS ---
Intake Vital Signs 12/16/23 11:57 Height 5 ft 10 in Weight 186 lb 2 oz BMI 26.7 BP 112/60 Blood Pressure Location Rt brachial Position Sitting Pulse 63 Pulse Source Pulse Oximeter Temp 98.1 F Temp Source Oral Pulse Oximetry (%) 98 Oxygen Delivery Method Room Air Intake Visit Reasons: EP left shoulder pain for 1month Intake Note: Pt presents to the office today for c/o left shoulder pain for 1 month. Pt states he had no known injury to the shoulder. Patient Tobacco Use Status: Never used Tobacco Allergies No Known Allergies Allergy (Verified 12/16/23 12:01) HPI HPI Comments History of Present Illness Details 53-year-old man presents today complaini ng of left-sided shoulder pain increasing intensity over the last month. The patient denies any injury or trauma to the area but does have pain in extreme ranges and also reaching overhead. He states his job involves very heavy lifting [facility] Medical History Erectile dysfunction Gout Obesity (BMI 30-39.9) Mixed hyperlipidemia Diabetes mellitus Surgical History History of eye surgery Family History Father No problems noted. 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 Cognitive needs: No Hearing needs: No Vision needs: No Review of Systems Const All systems reviewed & are unremarkable except as noted in HPI and below Physical Exam Vital Signs: Last Vital Signs Temp 98.1 F 12/16/23 11:57 Pulse 63 12/16/23 11:57 BP 112/60 12/16/23 11:57 Pulse Ox 98 12/16/23 11:57 Oxygen Delivery Method Room Air 12/16/23 11:57 BMI result Body Mass Index 26.7 Extrem Left upper extremity: shoulder/upper arm Details: tenderness Location: of the mid-shaft humerus and over the deltoid bursa and abnormal ROM Details: pain with active ROM and pain with passive ROM Results Reviewed Results Reviewed: X-ray done today in the office revealed slight amount of calcific tendinitis. This was discussed with the patient Assessment & Plan Assessment & Plan (1) Left shoulder pain: Code(s): M25.512 - Pain in left shoulder Plan: The patient will take some diclofenac but also has been referred referred to orthopedics for hopefully a steroid injection in that shoulder. (2) Calcific tendinitis of right shoulder: Code(s): M75.31 - Calcific tendinitis of right shoulder Plan: See plan Plan See plan Orders: Orders XR shoulder LT min 2V Today M25.512 - Pain in left shoulder Referrals Orthopedics Referral M75.31 - Calcific tendinitis of right shoulder Medications: New diclofenac potassium 50 mg PO BEDTIME PRN 14 tabs 0RF pain Coding Level of Care Code Est Pt Level 4 (85296) Diagnoses Left shoulder pain M25.512 Calcific tendinitis of right shoulder M75.31
== END 2023-12-16 13:00 | disposition home or self-care (01) ==
PROVIDERS: PCP Internal Medicine; Visit Provider Physician Assistant Medical
DX: M25.512 Pain in left shoulder (principal); M75.31 Calcific tendinitis of right shoulder
CPT/HCPCS: 99214

== ENCOUNTER 2023-12-16 12:17 | Outpatient (REF) | payer OTHER, SELFPAY ==
--- NOTE | ~2023-12-16 | XR_ITS ---
EXAMINATION: XR SHOULDER, LEFT CLINICAL INFORMATION: Pain left shoulder COMPARISON: None available. TECHNIQUE: Three views of the left shoulder. FINDINGS: No acute visible fracture or dislocation. Degenerative arthropathy of the glenohumeral and acromioclavicular joints. Joint space alignment otherwise maintained. Soft tissues are unremarkable. Visualized portions of the chest are unremarkable. XR/XR shoulder LT min 2V IMPRESSION: 1. No acute visible fracture or dislocation. 2. Degenerative arthropathy of the glenohumeral and acromioclavicular joints.
== END 2023-12-16 12:18 | disposition home or self-care (01) ==
LOC: HO.HMGCX 12:17
PROVIDERS: PCP Internal Medicine; Visit Provider Physician Assistant Medical
DX: M25.512 Pain in left shoulder (principal)
CPT/HCPCS: 73030

== ENCOUNTER 2023-12-24 09:41 | Outpatient (AMB) | payer OTHER, SELFPAY ==
[2023-12-24 09:42] VITALS: BMI 26.7
--- NOTE | 2023-12-24 09:42 | A.OFFVIS_ITS ---
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 Patient reports his pain has been going on for about a month and half and is a 7 on the 1-10 pain scale. He reports his pain is worse when he is pushing something or at night when he is trying to sleep. He denies injury and surgery. He has had a cortisone injection about 7 years ago and it did help. He would like to have an injection today. He reports mild weakness when lifting his left hand above shoulder height. He has tried Tylenol and diclofenac which give him mild relief. 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 Name: [id number] Allergies No Known Allergies Allergy (Verified 12/24/23 09:48) Medication List - Last Reconciled 12/24/23 by Cholo Draper MD blood sugar diagnostic (FreeStyle Lite Strips) As directed once a day - Dx: E11.9 -- diabetes blood-glucose meter (FreeStyle Lite Meter kit) As directed - Dx: E11.9 -- diabetes cholecalciferol (vitamin D3) 50 mcg PO DAILY 90 days diclofenac potassium 50 mg PO BEDTIME PRN diclofenac potassium 50 mg PO DAILY lancets (FreeStyle Lancets) As directed metformin ER 1,000 mg (2 x 500 mg) PO BID peg 3350-electrolytes 236-22.74-6.74 -5.86 gram (Golytely) 240 mL PO Q10M 1 day sitagliptin phosphate (Januvia) 100 mg PO DAILY 90 days tadalafil 10 mg PO DAILY 90 days [facility] Medical History Erectile dysfunction Gout Obesity (BMI 30-39.9) Mixed hyperlipidemia Diabetes mellitus Surgical History History of eye surgery Family History Father No problems noted. 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 Cognitive needs: No Hearing needs: No Vision needs: No Physical Exam Vital Signs: BMI result Body Mass Index 26.7 Const Other: Well-nourished well-developed very friendly male awake alert and oriented x3 in no acute distress Extrem Other: Bilateral upper extremity examination shows good capillary refill, no skin lesions noted, normal sensation light touch Left shoulder examination shows decreased range of motion when compared to his right shoulder, 4+ out of 5 strength with supraspinatus testing, positive impingement signs, tenderness over his acromioclavicular joint, no instability Office Procedures Joint Injection/Drain Joint Injection/Drain Primary Site: left shoulder Prep: site was prepped using aseptic technique Injected: 40 mg of, DepoMedrol and 1% plain lidocaine Procedure: The patient tolerated the procedure well Coding 41141 - Large joint Procedure code (CPT) selection complete Results Reviewed Results Reviewed: X-rays of the patient's left shoulder show severe acromioclavicular joint narrowing, a type 2 acromion, no acute bony abnormalities Assessment & Plan Assessment & Plan (1) Left shoulder pain: Code(s): M25.512 - Pain in left shoulder Plan Mr. Hiren Martínez presents with progressively worsening left shoulder pain due to impingement syndrome and possible rotator cuff tearing. I had a lengthy discussion with the patient regarding the treatment options. The risks and benefits of a left shoulder cortisone injection were discussed at length with the patient. The patient wished to proceed. He tolerated the injection well. He will continue with his home stretching program to prevent stiffness. The do's and don'ts of lifting were discussed at length with the patient. He will follow up with me on an as-needed basis should his symptoms not plateau at an unacceptable level over the next few months. If his symptoms do not improve and his weakness continues I will order an MRI to evaluate the status of his rotator cuff tendons. Feel free to call me at any time should questions regarding his orthopedic management arise. Thank you very much for asking me to see this very friendly gentleman. I spent 22 minutes in reviewing the patient's records and imaging studies, seeing the patient and documenting in the medical record. Orders: Orders AMB Joint Injection/Aspiration Today M25.512 - Pain in left shoulder Coding Level of Care Code New Pt Level 2 (23422) Diagnoses Left shoulder pain M25.512 CPT Codes Coding - 37952 Large joint: 35292 - Large joint ([id number])
== END 2023-12-24 10:08 | disposition home or self-care (01) ==
PROVIDERS: PCP Internal Medicine; Visit Provider Orthopaedic Surgery
DX: M25.512 Pain in left shoulder (principal)
CPT/HCPCS: 20610; 99203

== ENCOUNTER → 2023-12-24 09:41 | Outpatient (BNVA) | payer OTHER, SELFPAY | PROVIDERS: PCP Internal Medicine; Visit Provider Orthopaedic Surgery | DX: M25.512 Pain in left shoulder (principal) | CPT/HCPCS: 20610; 99202; J1010; J1020 ==

== ENCOUNTER 2024-01-13 13:19 | Outpatient (AMB) | payer OTHER, SELFPAY ==
[2024-01-13 13:38] VITALS: BP 108/70; PULSE 70; O2SAT 98; BMI 27.0
--- NOTE | 2024-01-13 13:38 | A.OFFPC_ITS ---
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: No Accompanied by: Self / Same As Patient Allergies No Known Allergies Allergy (Verified 01/13/24 14:22) Medication List - Last Reconciled 01/13/24 by Juan Ngo MD blood sugar diagnostic (FreeStyle Lite Strips) As directed once a day - Dx: E11.9 -- diabetes blood-glucose meter (FreeStyle Lite Meter kit) As directed - Dx: E11.9 -- diabetes cholecalciferol (vitamin D3) 50 mcg PO DAILY 90 days diclofenac potassium 50 mg PO DAILY lancets (FreeStyle Lancets) As directed metformin ER 1,000 mg (2 x 500 mg) PO BID peg 3350-electrolytes 236-22.74-6.74 -5.86 gram (Golytely) 240 mL PO Q10M 1 day sitagliptin phosphate (Januvia) 100 mg PO DAILY 90 days tadalafil 10 mg PO DAILY 90 days Tobacco use date assessed: 01/13/24 Dental Screening Dental Screen Date: 09/10/23 HPI [facility] f/u HPI Details Patient comes in today for his follow up visit States that he feels okay He denies any headaches or dizziness Denies any chest pains, no SOB No nausea/vomiting, no abdominal pain No change in bowel habits noted Relates that he went to the walk-in clinic last month for increased pain in his left shoulder X-rays of the shoulder done revealed (+) degenerative arthropathy He was referred to orthopedics and he received a cortisone injection into his left shoulder from orthopedics earlier this month, which he states provided a significant improvement/relief of his shoulder pain Needs his Tadalafil Rx refilled He was not able to get his follow up labs done prior to his visit today - states that he completely forgot about them [facility] Medical History Erectile dysfunction Gout Obesity (BMI 30-39.9) Mixed hyperlipidemia Diabetes mellitus Surgical History History of eye surgery Family History Father No problems noted. 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 1. Little interest or pleasure in doing things: not at all 2. Feeling down, depressed, or hopeless: not at all 3. Trouble falling or staying asleep, or sleeping too much: not at all 4. Feeling tired or having little energy: not at all 5. Poor appetite or overeating: not at all 6. Feeling bad about yourself - or that you are a failure or have let yourself or your family down: not at all 7. Trouble concentrating on things, such as reading the newspaper or watching television: not at all 8. Moving or speaking so slowly that other people could have noticed. Or the opposite - being so fidgety or restless that you have been moving around a lot more than usual: not at all 9. Thoughts that you would be better off or of hurting yourself in some way: not at all Total score: 0 Depression Screening Interpretation: Negative Depression Screening Done: Yes 06502 - PHQ-9 Billing: Yes Source: Developed by Drs. Thuan Merchant, Shana Coppola, Agustín Jane and colleagues, with an educational yamil from [employer]. Thrive Questionnaire Date Thrive assessed: 01/13/24 I am a: Patient What is your living situation today?: I have a steady place to live Within the past 12 months, did the food you bought not last and you didn't have the money to get more?: Never true Within the past 12 months, did you worry whether your food would run out before you got money to buy more?: Never true Do you have trouble paying for medicines?: No Do you have trouble getting transportation to medical appointments?: No Do you have trouble paying your heating and electricity bill?: No Do you have trouble taking care of your child, family member or friend?: No Do you have trouble with day-to-day activities such as bathing, preparing meals, shopping, managing finances, etc.?: No Are you currently unemployed and looking for a job?: No Are you interested in more education?: No Please select the resources that you would like help with: None Currently or been in a relationship where the following occur: no concerns reported THRIVE Score: 0 AUDIT C Alcohol Use Questionnaire (AUDIT-C) 1. How often do you have a drink containing alcohol?: Never 3. How often do you have six or more drinks on one occasion?: Never Total Score: 0 Score Reviewed/Action Taken: Yes MEJIA-7 AMB Questionnaire MEJIA-7 Date MEJIA - 7 assessed: 01/13/24 Feeling nervous, anxious, or on edge: 0 = Not at all Not being able to stop or control worryin = Not at all Worrying too much about different things: 0 = Not at all Trouble relaxin = Not at all Being so restless that it is hard to sit still: 0 = Not at all Becoming easily annoyed or irritable: 0 = Not at all Feeling afraid as if something awful might happen: 0 = Not at all Total MEJIA-7 score (0-4 normal; 5-9 mild; 10-14 moderate; 15-21 severe): 0 Source: Developed by Drs. Thuan Merchant, Shana Coppola, Agustín Jane and colleagues, with an educational yamil from [employer]. MEJIA-7 Assessment Billing MEJIA-7 Assessment Tool: MEJIA-7 Assessment 09449 Review of Systems Const Denies chills, Denies fatigue, Denies fever(s) and Denies headache(s) ENT Denies dysphagia, Denies dizziness, Denies otalgia, Denies headache(s), Denies neck pain, Denies odynophagia and Denies sore throat Card Denies chest pain, Denies palpitations and Denies dyspnea Resp Denies cough and Denies dyspnea GI Denies abdominal pain, Denies constipation, Denies dysphagia, Denies heartburn, Denies diarrhea, Denies nausea, Denies odynophagia and Denies vomiting Denies dysuria, Denies nocturia and Denies urinary frequency Musc Denies back pain, Denies arthralgias (previous left shoulder pain has resolved) and Denies neck pain Skin/Breast Denies rash Neuro Denies dizziness and Denies headache(s) Endo Denies fatigue and Denies palpitations Physical exam (Primary Care) Vital Signs: Last Vital Signs Pulse 70 01/13/24 13:38 BP 108/70 01/13/24 13:38 Pulse Ox 98 01/13/24 13:38 Oxygen Delivery Method Room Air 01/13/24 13:38 BMI result Body Mass Index 27.0 Tobacco/Smoking Status: Tobacco use Status Tobacco use date assessed 01/13/24 01/13/24 13:39 Patient Tobacco Use Status Never used Tobacco 01/13/24 13:39 e-Cigarette/Vaping Use Never Used 01/13/24 13:39 PHQ-9: PHQ-9 Score PHQ-9: Total score 0 01/13/24 14:23 Depression Screening Interpretation: Negative Thrive Assessment: Date of Thrive Assessment Date Thrive assessed 01/13/24 01/13/24 13:39 Currently or been in a relationship where the following occur: no concerns reported Const General: no acute distress and alert HENMT Ears: TM's normal bilaterally and EAC's normal Throat: Yes posterior oropharynx normal and Yes tonsils normal (no TP congestion) Neck Neck: Yes no lymphadenopathy and Yes supple Resp Auscultation: clear to auscultation bilaterally, no rales and no wheezes Cardio Rate: regular rate Rhythm: regular rhythm Heart sounds: no murmurs GI Palpation (GI): Soft to palpation and nontender Auscultation: normal bowel sounds General: Yes no CVA tenderness Back/Spine/Pelvis Back: no CVA tenderness Skin Rashes: no rashes Extrem General: Yes no clubbing, cyanosis or edema Results AMB Hemoglobin A1c AMB Hemoglobin A1c 6.3 % Last Edit by ROXANNA Luna on 01/13/24 14:28 Assessment and Plan Assessment & Plan (1) Diabetes mellitus: Code(s): E11.9 - Type 2 diabetes mellitus without complications Qualifiers: Diabetes mellitus type: type 2 Diabetes mellitus nursing home insulin use: without nursing home use Diabetes mellitus complication status: without complication Qualified Code(s): E11.9 - Type 2 diabetes mellitus without complications Plan: In-office HgbA1c done today is at 6.3% (was at 6.4% a few months ago) - goal is < 7.0% Reinforced diabetic diet Continue Januvia 100 mg QD in AM and Metformin ER 500 mg 2 tablets (1000 mg) BID (2) Mixed hyperlipidemia: Code(s): E78.2 - Mixed hyperlipidemia Plan: He was not able to get his follow up labs done prior to his visit today (forgot) Reinforced low cholesterol diet Will recheck his labs and fasting lipids in 4 months for follow up - is advised that he cannot forget to get his labs done again next time as it will be almost a year out if he forgets again (3) Gout: Code(s): M10.9 - Gout, unspecified Qualifiers: Gout site: unspecified site Gout etiology: idiopathic Chronicity: unsp ecified Qualified Code(s): M10.00 - Idiopathic gout, unspecified site Plan: Reinforced low purine diet Serum uric acid level was still elevated at 8.7 when last checked in May 2023 He still reports NO acute gout flare ups lately Continue Allopurinol 300 mg QD and Colchicine 0.6 mg BID Continue Indomethacin 50 mg BID PRN Will recheck his serum uric acid level in 4 months for follow up (4) Left knee pain: Code(s): M25.562 - Pain in left knee Qualifiers: Chronicity: unspecified Qualified Code(s): M25.562 - Pain in left knee Plan: Improved/resolved with no recurrence - was most likely due to gout and/or OA Uses a knee brace when needed but he has not had to use his brace in a while now Continue Indomethacin 50 mg BID PRN (5) Vitamin D deficiency: Code(s): E55.9 - Vitamin D deficiency, unspecified Plan: Continue Vitamin D3 2000 units QD (6) Erectile dysfunction: Code(s): N52.9 - Male erectile dysfunction, unspecified Qualifiers: Erectile dysfunction type: unspecified Qualified Code(s): N52.9 - Male erectile dysfunction, unspecified Plan: Continue Tadalafil 10 mg QD PRN - Rx refilled Follow up with urology as scheduled (7) Overweight (BMI 25.0-29.9): Code(s): E66.3 - Overweight Plan: Reinforced diet/exercise as tolerated/lose weight Plan Follow up in 4 months Orders: Orders AMB Hemoglobin A1c Today E11.9 - Type 2 diabetes mellitus without complications Complete Blood Count Auto Diff 4 Months D64.9 - Anemia, unspecified Hemoglobin A1c 4 Months E11.9 - Type 2 diabetes mellitus without complications Microalbumin, Random (w Creat) 4 Months E11.9 - Type 2 diabetes mellitus without complications TSH reflex Free T4 4 Months E78.00 - Pure hypercholesterolemia, unspecified Uric Acid 4 Months M10.9 - Gout, unspecified Comprehensive Declo. Panel Fast 4 Months E78.00 - Pure hypercholesterolemia, unspecified Lipid Panel 4 Months E78.00 - Pure hypercholesterolemia, unspecified UA CC w/rflx Micro + Cult 4 Months R30.0 - Dysuria Vitamin D 25-OH Total 4 Months E55.9 - Vitamin D deficiency, unspecified Erythrocyte Sedimentation Rate 4 Months M79.7 - Fibromyalgia Medications: Refilled tadalafil 10 mg PO DAILY 90 days 90 tabs 1RF sexual activity E11.69 - Type 2 diabetes mellitus with other specified complication, N52.1 - Erectile dysfunction due to diseases classified elsewhere Coding Level of Care Code Est Pt Level 4 (38078) Diagnoses Type 2 diabetes mellitus without complication, without long-term current use of insulin E11.9 Diabetes mellitus type: type 2 Diabetes mellitus nursing home insulin use: without nursing home use Diabetes mellitus complication status: without complication Mixed hyperlipidemia E78.2 Idiopathic gout, unspecified chronicity, unspecified site M10.00 Gout site: unspecified site Gout etiology: idiopathic Chronicity: unspecified Left knee pain, unspecified chronicity M25.562 Chronicity: unspecified Vitamin D deficiency E55.9 Erectile dysfunction, unspecified erectile dysfunction type N52.9 Erectile dysfunction type: unspecified Overweight (BMI 25.0-29.9) E66.3 Additional Codes MEJIA-7 Assessment Billing - MEJIA-7 Assessment Tool: MEJIA-7 Assessment 08640 ([id number])
== END 2024-01-13 14:29 | disposition home or self-care (01) ==
PROVIDERS: PCP Internal Medicine; Visit Provider Internal Medicine
DX: E11.9 Type 2 diabetes mellitus without complications (principal); E78.2 Mixed hyperlipidemia; M10.00 Idiopathic gout, unspecified site; M25.562 Pain in left knee; E55.9 Vitamin D deficiency, unspecified; N52.9 Male erectile dysfunction, unspecified; E66.3 Overweight
CPT/HCPCS: 83036; 99214

== ENCOUNTER 2024-01-19 15:22 | Outpatient (AMB) | payer OTHER, SELFPAY ==
--- NOTE | 2024-01-19 15:35 | A.OFFVIS_ITS ---
Intake Visit Reasons: 4m follow up Intake Note: Patient is Present for Follow Up Urology Medication: Tadalafil Antibiotic Allergies:None Blood Thinners:None Allergies No Known Allergies Allergy (Verified 01/13/24 14:22) Medication List - Last Reconciled 01/19/24 by Huey Henson MD blood sugar diagnostic (FreeStyle Lite Strips) As directed once a day - Dx: E11.9 -- diabetes blood-glucose meter (FreeStyle Lite Meter kit) As directed - Dx: E11.9 -- diabetes cholecalciferol (vitamin D3) 50 mcg PO DAILY 90 days diclofenac potassium 50 mg PO DAILY lancets (FreeStyle Lancets) As directed metformin ER 1,000 mg (2 x 500 mg) PO BID peg 3350-electrolytes 236-22.74-6.74 -5.86 gram (Golytely) 240 mL PO Q10M 1 day sitagliptin phosphate (Januvia) 100 mg PO DAILY 90 days tadalafil 20 mg PO DAILY 90 days HPI Comments Details: Justin is a pleasant male. He is a patient of Dr. Ngo. He is seen for the following urologic condition - erectile dysfunction - hypogonadism Thai translation provided in office by qualified medical collections representative Follow-up from trial of constriction band for venous leak Has not been able to use Does notice some benefit with 10 mg daily tadalafil and 20 mg on demand Will increase to 20 mg daily Prescription provided Six-month follow-up Discussion of vacuum pump versus injection versus penile prosthetic Hypogonadism Diabetic for past 5 years HBA1c 07/11 7.4 No medications for dyslipidemia or hypertension Baseline with decreased libido Laboratories - 01/07 T 248, 07/11 T 324 FSH 9.8, 06/13 T 352, Free T 76 FSH 11.5, LH 7.0 HBA1c 6.5 Repeat laboratories showed slight rise in testosterone he has improved libido High FSH is suggestive of early testicular failure Erectile dysfunction - secondary to diabetes Able to obtain but cannot maintain erection Trial of maximum oral medication - 10 mg daily tadalafil with 100 mg on demand sildenafil HbA1c 03/12 6.4 PFSH Medical History Erectile dysfunction Gout Obesity (BMI 30-39.9) Mixed hyperlipidemia Diabetes mellitus Surgical History History of eye surgery Family History Father No problems noted. 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 Cognitive needs: No Hearing needs: No Vision needs: No Review of Systems Const Denies chills and Denies fever(s) Card Reports no additional complaints and Denies syncope Resp Denies cough GI Denies abdominal pain and Denies heartburn Reports as per HPI and Denies change in libido Neuro Denies syncope Psych Denies change in libido Endo Denies change in libido Physical Exam Const General: cooperative, healthy appearing, comfortable and no acute distress Orientation/consciousness: patient oriented x3 HEENT Face and sinus: Yes normal facial exam Mouth: moist mucous membranes Neck Neck: Yes normal visual inspection, Yes full ROM and Yes trachea midline Chest Chest palpation & inspection: normal inspection of the chest Resp Effort & Inspection: normal respiratory effort, able to speak in complete sentences and no respiratory distress GI Inspection: Yes normal to inspection Back/Spine/Pelvis Cervical Spine: normal cervical lordosis Thoracic/Lumbar Spine: thoracic and lumbar spine normal to inspection Skin General skin exam: no rashes or lesions noted Neuro General: patient oriented x3, gait normal, tone normal and moves all extremities Extrem General: Yes normal to inspection and Yes capillary refill normal Assessment & Plan Assessment & Plan (1) Erectile dysfunction associated with type 2 diabetes mellitus: Code(s): E11.69 - Type 2 diabetes mellitus with other specified complication; N52.1 - Erectile dysfunction due to diseases classified elsewhere Category: Medical (2) Hypogonadism in male: Code(s): E29.1 - Testicular hypofunction Category: Medical Plan Trial high-dose tadalafil 20mg Medications: Changed From tadalafil 10 mg PO DAILY 90 days 90 tabs 1RF sexual activity E11.69 - Type 2 diabetes mellitus with other specified complication, N52.1 - Erectile dysfunction due to diseases classified elsewhere To tadalafil 20 mg PO DAILY 90 days 90 tabs 1RF sexual activity E11.69 - Type 2 diabetes mellitus with other specified complication, N52.1 - Erectile dysfunction due to diseases classified elsewhere Patient Instructions: Imaging studies, laboratory and physical exam results were discussed and reviewed in detail. No major barriers to patient understanding were identified. An opportunity to ask questions regarding the treatment plan was provided. All questions were answered. The patient expressed understanding and agreement with the above treatment plan. The patient is aware they should contact our office by phone for worsening of their current condition or the appearance of new urologic symptoms. Compliance is encouraged with any medications and followup testing that is ordered. It is a privilege to participate in the urologic care of your patient. If you have any questions or concerns regarding treatment for the above conditions, or other urologic issues, please do not hesitate to contact me. The office telephone contact is [phone]. This note is constructed using voice recognition software. While every effort has been made to ensure accuracy screenplay writer errors may have been included. Yours sincerely, Dr Huey Henson MD, [facility] - Urology Providers of Expert, Compassionate Care for the Genitourinary System Coding Level of Care Code Est Pt Level 4 (54396) Complex EM visit Add On G2211 Diagnoses Erectile dysfunction associated with type 2 diabetes mellitus E11.69; N52.1 Hypogonadism in male E29.1
== END 2024-01-19 15:59 | disposition home or self-care (01) ==
PROVIDERS: PCP Internal Medicine; Visit Provider Urology
DX: E11.69 Type 2 diabetes mellitus with other specified complication (principal); N52.1 Erectile dysfunction due to diseases classified elsewhere; E29.1 Testicular hypofunction
CPT/HCPCS: 99214; G2211

== ENCOUNTER → 2024-01-19 15:22 | Outpatient (BNVA) | payer OTHER, SELFPAY | PROVIDERS: PCP Internal Medicine; Visit Provider Urology | DX: E11.69 Type 2 diabetes mellitus with other specified complication (principal); N52.1 Erectile dysfunction due to diseases classified elsewhere; E29.1 Testicular hypofunction | CPT/HCPCS: 99212 ==

== ENCOUNTER 2024-05-24 06:57 | Outpatient (REF) | payer OTHER, SELFPAY ==
[2024-05-24 07:08] LABS: MANUAL DIFF FLAG NO
[2024-05-24 07:29] LABS: Basophils Absolute Auto 0.1 X10*3/uL (0.0-0.2); Basophils Percent Auto 0.9 % (0-2); Eosinophils Absolute Auto 0.3 X10*3/uL (0.0-0.4); Eosinophils Percent Auto 3.7 % (0-4); Hematocrit 45.9 % (42.0-52.0); Hemoglobin 15.2 g/dl (14.0-18.0); Imm Gran Abs Auto 0.03 X10*3/uL (0.00-0.03); Imm Gran Pct Auto 0.4 % (0.0-0.4); Lymphocytes Absolute Auto 2.5 X10*3/uL (1.2-4.9); Lymphocytes Percent Auto 30.7 % (20-40); Mean Corpuscular HGB Conc 33.1 g/dl (31.0-36.0); Mean Corpuscular Hemoglobin 29.1 pg (27.0-33.0); Mean Corpuscular Volume 87.8 fL (80.0-98.0); Mean Platelet Volume 9.8 fL (9.4-12.4); Monocytes Absolute Auto 0.7 X10*3/uL (0.1-1.2); Monocytes Percent Auto 8.2 % (2-11); Neutrophils Absolute Auto 4.5 x10*3/uL (2.0-8.3); Neutrophils Percent Auto 56.1 % (45-73); Platelet Count 356 X10*3/uL (160-400); Red Blood Count 5.23 X10*6/uL (4.60-5.80)
[2024-05-24 07:34] LABS: Estimated Average Glucose 160 mg/dL; Hemoglobin A1c % 7.2 % (<6.0)
[2024-05-24 07:46] LABS: Appearance Urine Clear; Color Urine Yellow; Glucose Urine UA Negative (Negative); Leukocyte Esterase Urine Negative (Negative); Nitrite Urine Negative (Negative); PH 5.5 (5.0-9.0); Specific Gravity - Urine 1.015 (1.005-1.025); Urine Blood Negative (Negative); Urine Ketones Negative (Negative); Urine Protein Negative (Neg-Trace)
[2024-05-24 07:57] LABS: Alanine Aminotransferase 24 U/L (0-40); Alkaline Phosphatase 80 U/L (39-117); Anion Gap 14 (12-20); Aspartate Amino Transferase 19 U/L (5-37); Bilirubin Total 0.2 mg/dL (0.0-1.0); Blood Urea Nitrogen 16 mg/dL (9-16); Calcium 9.2 mg/dL (8.4-10.2); Carbon Dioxide 26 mmol/L (22-29); Chloride 105 mmol/L (96-108); Cholesterol 176 mg/dL (<200); Estimated Glomerular Filt Rate > 60; Glucose Fasting 186 mg/dL (60-99); HDL Cholesterol 29 mg/dL (>40); LDL Cholesterol Calculated 83 mg/dL (<100); Potassium 4.1 mmol/L (3.3-5.1); Sodium 141 mmol/L (135-145); Triglycerides 323 mg/dL (<150)
[2024-05-24 08:12] LABS: Erythrocyte Sedimentation Rate 2 MM/HR (0-15)
[2024-05-24 08:19] LABS: Creatinine Urine 87.83 mg/dL; Microalbum/Creatinine Ratio Ur 6.8 ug/mg cr (<30)
[2024-05-24 08:23] LABS: TSH reflex Free T4 0.77 uIU/mL (0.32-4.0); Vitamin D 25-OH Total 46.5 ng/mL (>30)
== END 2024-05-24 06:58 | disposition home or self-care (01) ==
LOC: HO.LAB 06:57
PROVIDERS: PCP Internal Medicine; Visit Provider Internal Medicine
DX: E55.9 Vitamin D deficiency, unspecified (principal); D64.9 Anemia, unspecified; E11.9 Type 2 diabetes mellitus without complications; E78.00 Pure hypercholesterolemia, unspecified; M10.9 Gout, unspecified; M79.7 Fibromyalgia; R30.0 Dysuria
CPT/HCPCS: 36415; 80053; 80061; 81003; 82043; 82306; 82570; 83036; 84443; 84550; 85025; 85652

== ENCOUNTER 2024-05-27 14:04 | Outpatient (AMB) | payer OTHER, SELFPAY ==
--- NOTE | 2024-05-27 14:10 | A.OFFPC_ITS ---
Vital Signs 05/27/24 14:11 Height 5 ft 10 in Weight 197 lb 6 oz BMI 28.3 BP 100/62 Blood Pressure Location Lt brachial Position Sitting Pulse 72 Pulse Source Pulse Oximeter Pulse Oximetry (%) 95 Oxygen Delivery Method Room Air Intake Visit Reasons: DM Quoter Required: No Accompanied by: Self / Same As Patient Allergies No Known Allergies Allergy (Verified 05/27/24 14:38) Medication List - Last Reconciled 05/27/24 by Juan Ngo MD blood sugar diagnostic (FreeStyle Lite Strips) As directed once a day - Dx: E11.9 -- diabetes blood-glucose meter (FreeStyle Lite Meter kit) As directed - Dx: E11.9 -- diabetes cholecalciferol (vitamin D3) 50 mcg PO DAILY 90 days diclofenac potassium 50 mg PO DAILY lancets (FreeStyle Lancets) As directed metformin ER 1,000 mg (2 x 500 mg) PO BID peg 3350-electrolytes 236-22.74-6.74 -5.86 gram (Golytely) 240 mL PO Q10M 1 day sitagliptin phosphate (Januvia) 100 mg PO DAILY 90 days tadalafil 20 mg PO DAILY 90 days Tobacco use date assessed: 05/27/24 Dental Screening Dental Screen Date: 05/27/24 Did you have a dental visit in the last 12 months?: Yes Did you have a dental problem in the last 6 months where you did not have access to dental care?: No Was dental information given to patient?: Patient has dentist HPI DM HPI Details Patient comes in today for his follow up visit States that he feels okay He denies any headaches or dizziness Denies any chest pains, no SOB No nausea/vomiting, no abdominal pain No change in bowel habits noted He had his follow up labs done a few days ago - to discuss his results [facility] Medical History Erectile dysfunction Gout Obesity (BMI 30-39.9) Mixed hyperlipidemia Diabetes mellitus Surgical History History of eye surgery Family History Father No problems noted. 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 1. Little interest or pleasure in doing things: not at all 2. Feeling down, depressed, or hopeless: not at all 3. Trouble falling or staying asleep, or sleeping too much: not at all 4. Feeling tired or having little energy: not at all 5. Poor appetite or overeating: not at all 6. Feeling bad about yourself - or that you are a failure or have let yourself or your family down: not at all 7. Trouble concentrating on things, such as reading the newspaper or watching television: not at all 8. Moving or speaking so slowly that other people could have noticed. Or the opposite - being so fidgety or restless that you have been moving around a lot more than usual: not at all 9. Thoughts that you would be better off or of hurting yourself in some way: not at all Total score: 0 Depression Screening Interpretation: Negative Depression Screening Done: Yes 65069 - PHQ-9 Billing: Yes Source: Developed by Drs. Thuan Merchant, Shana Coppola, Agustín Jane and colleagues, with an educational yamil from [employer]. Thrive Questionnaire Date Thrive assessed: 05/27/24 I am a: Patient What is your living situation today?: I have a steady place to live Within the past 12 months, did the food you bought not last and you didn't have the money to get more?: Never true Within the past 12 months, did you worry whether your food would run out before you got money to buy more?: Never true Do you have trouble paying for medicines?: No Do you have trouble getting transportation to medical appointments?: No Do you have trouble paying your heating and electricity bill?: No Do you have trouble taking care of your child, family member or friend?: No Do you have trouble with day-to-day activities such as bathing, preparing meals, shopping, managing finances, etc.?: No Are you currently unemployed and looking for a job?: No Are you interested in more education?: No Please select the resources that you would like help with: None Currently or been in a relationship where the following occur: No concerns reported THRIVE Score: 0 AUDIT C Alcohol Use Questionnaire (AUDIT-C) 1. How often do you have a drink containing alcohol?: Never 3. How often do you have six or more drinks on one occasion?: Never Total Score: 0 Score Reviewed/Action Taken: Yes MEJIA-7 AMB Questionnaire MEJIA-7 Date MEJIA - 7 assessed: 05/27/24 Feeling nervous, anxious, or on edge: 0 = Not at all Not being able to stop or control worryin = Not at all Worrying too much about different things: 0 = Not at all Trouble relaxin = Not at all Being so restless that it is hard to sit still: 0 = Not at all Becoming easily annoyed or irritable: 0 = Not at all Feeling afraid as if something awful might happen: 0 = Not at all Total MEJIA-7 score (0-4 normal; 5-9 mild; 10-14 moderate; 15-21 severe): 0 Source: Developed by Drs. Thuan Merchant, Shana Coppola, Agustín Jane and colleagues, with an educational yamil from [employer]. MEJIA-7 Assessment Billing MEJIA-7 Assessment Tool: MEJIA-7 Assessment 01750 Review of Systems Const Denies chills, Denies fatigue, Denies fever(s) and Denies headache(s) ENT Denies dysphagia, Denies dizziness, Denies otalgia, Denies headache(s), Denies neck pain, Denies odynophagia and Denies sore throat Card Denies chest pain, Denies palpitations and Denies dyspnea Resp Denies cough and Denies dyspnea GI Denies abdominal pain, Denies constipation, Denies dysphagia, Denies heartburn, Denies diarrhea, Denies nausea, Denies odynophagia and Denies vomiting Denies dysuria, Denies nocturia and Denies urinary frequency Musc Denies back pain, Denies arthralgias and Denies neck pain Skin/Breast Denies rash Neuro Denies dizziness and Denies headache(s) Endo Denies fatigue and Denies palpitations Physical exam (Primary Care) Vital Signs: Last Vital Signs Pulse 72 05/27/24 14:11 BP 100/62 05/27/24 14:11 Pulse Ox 95 05/27/24 14:11 Oxygen Delivery Method Room Air 05/27/24 14:11 BMI result Body Mass Index 28.3 Tobacco/Smoking Status: Tobacco use Status Tobacco use date assessed 05/27/24 05/27/24 14:15 Patient Tobacco Use Status Never used Tobacco 05/27/24 14:15 e-Cigarette/Vaping Use Never Used 05/27/24 14:15 PHQ-9: PHQ-9 Score PHQ-9: Total score 0 05/27/24 14:15 Depression Screening Interpretation: Negative Thrive Assessment: Date of Thrive Assessment Date Thrive assessed 05/27/24 05/27/24 14:15 Currently or been in a relationship where the following occur: No concerns reported Const General: no acute distress and alert HENMT Ears: TM's normal bilaterally and EAC's normal Throat: Yes posterior oropharynx normal and Yes tonsils normal (no TP con gestion) Neck Neck: Yes no lymphadenopathy and Yes supple Resp Auscultation: clear to auscultation bilaterally, no rales and no wheezes Cardio Rate: regular rate Rhythm: regular rhythm Heart sounds: no murmurs GI Palpation (GI): Soft to palpation and nontender Auscultation: normal bowel sounds General: Yes no CVA tenderness Back/Spine/Pelvis Back: no CVA tenderness Skin Rashes: no rashes Extrem General: Yes no clubbing, cyanosis or edema Results Reviewed Results Reviewed: Laboratory Tests 05/24/24 05/24/24 06:59 07:06 WBC 8.0 Hgb 15.2 Hct 45.9 Plt Count 356 Sodium 141 Potassium 4.1 Creatinine 1.08 Estimated GFR > 60 Fasting Glucose 186 H Hemoglobin A1c % 7.2 H Uric Acid 9.0 H Calcium 9.2 AST 19 ALT 24 Triglycerides 323 H Cholesterol 176 LDL Cholesterol, Calc 83 HDL Cholesterol 29 L 25-OH Vitamin D Total 46.5 TSH 0.77 Ur Specific [place] 1.015 Urine Protein Negative Urine Glucose (UA) Negative Urine Blood Negative Urine Nitrite Negative Ur Leukocyte Esterase Negative Microalb/Creat Ratio 6.8 Assessment and Plan Assessment & Plan (1) Diabetes mellitus: Code(s): E11.9 - Type 2 diabetes mellitus without complications Qualifiers: Diabetes mellitus type: type 2 Diabetes mellitus buttermaker helper insulin use: without buttermaker helper use Diabetes mellitus complication status: without complica tion Qualified Code(s): E11.9 - Type 2 diabetes mellitus without complications Plan: His HgbA1c was up at 7.2% on his labs done a few days ago (in-office HgbA1c was at 6.3% a few months ago) - goal is < 7.0% He is advised that the recent rise in his HgbA1c is likely tied in to his weight, as he has gained a lot of weight (almost 10 pounds) since his last visit Reinforced diabetic diet Continue Januvia 100 mg QD in AM and Metformin ER 500 mg 2 tablets (1000 mg) BID for now (2) Mixed hyperlipidemia: Code(s): E78.2 - Mixed hyperlipidemia Plan: Results of his labs done a few days ago reviewed and discussed with patient - he is advised that his serum TG level has risen significantly from before and is also related likely to his recent weight gain Reinforced low cholesterol diet Will recheck his labs and fasting lipids in 4 months for follow up - is advised that he may need to consider starting on cholesterol Rx if he cannot get his numbers improved significantly over the next few months (3) Gout: Code(s): M10.9 - Gout, unspecified Qualifiers: Gout site: unspecified site Gout etiology: idiopathic Chronicity: unspecified Qualified Code(s): M10.00 - Idiopathic gout, unspecified site Plan: Reinforced low purine diet His serum uric acid level is still elevated at 9.0 (was at 8.7 previously) on his recent labs He still reports NO acute gout flare ups lately Continue Allopurinol 300 mg QD and Colchicine 0.6 mg BID Continue Indomethacin 50 mg BID PRN Will recheck his serum uric acid level in 4 months for follow up (4) Vitamin D deficiency: Code(s): E55.9 - Vitamin D deficiency, unspecified Plan: Continue Vitamin D3 2000 units QD (5) Erectile dysfunction: Code(s): N52.9 - Male erectile dysfunction, unspecified Qualifiers: Erectile dysfunction type: unspecified Qualified Code(s): N52.9 - Male erectile dysfunction, unspecified Plan: Continue Tadalafil 10 mg QD PRN Follow up with urology as scheduled (6) Overweight (BMI 25.0-29.9): Code(s): E66.3 - Overweight Plan: Reinforced diet/exercise as tolerated/lose weight - he has gained at least 8 to 9 pounds since his last visit Plan Follow up in 4 months Orders: Orders Hemoglobin A1c 4 Months E11.9 - Type 2 diabetes mellitus without complications Complete Blood Count Auto Diff 4 Months D64.9 - Anemia, unspecified Comprehensive [place]. Panel Fast 4 Months E78.00 - Pure hypercholesterolemia, unspecified Microalbumin, Random (w Creat) 4 Months E11.9 - Type 2 diabetes mellitus without complications Uric Acid 4 Months M10.9 - Gout, unspecified Lipid Panel 4 Months E78.00 - Pure hypercholesterolemia, unspecified UA CC w/rflx Micro + Cult 4 Months R30.0 - Dysuria Vitamin D 25-OH Total 4 Months E55.9 - Vitamin D deficiency, unspecified Coding Level of Care Code Est Pt Level 4 (43621) Complex EM visit Add On G2211 Diagnoses Type 2 diabetes mellitus without complication, without long-term current use of insulin E11.9 Diabetes mellitus type: type 2 Diabetes mellitus care home insulin use: without buttermaker helper use Diabetes mellitus complication status: without complication Mixed hyperlipidemia E78.2 Idiopathic gout, unspecified chronicity, unspecified site M10.00 Gout site: unspecified site Gout etiology: idiopathic Chronicity: unspecified Vitamin D deficiency E55.9 Erectile dysfunction, unspecified erectile dysfunction type N52.9 Erectile dysfunction type: unspecified Overweight (BMI 25.0-29.9) E66.3 Additional Codes MEJIA-7 Assessment Billing - MEJIA-7 Assessment Tool: MEJIA-7 Assessment 57543 ([id number])
[2024-05-27 14:11] VITALS: BP 100/62; PULSE 72; O2SAT 95; BMI 28.3
== END 2024-05-27 14:47 | disposition home or self-care (01) ==
PROVIDERS: PCP Internal Medicine; Visit Provider Internal Medicine
DX: E11.9 Type 2 diabetes mellitus without complications (principal); E78.2 Mixed hyperlipidemia; M10.00 Idiopathic gout, unspecified site; E55.9 Vitamin D deficiency, unspecified; N52.9 Male erectile dysfunction, unspecified; E66.3 Overweight
CPT/HCPCS: 99214; G2211

== ENCOUNTER 2024-08-20 11:51 | Emergency (ER) | payer OTHER, SELFPAY ==
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
[2024-08-20 11:57] VITALS: BP 141/78; PULSE 70; RESP 18; TEMP 36.7; O2SAT 98; BMI 27.9
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
[2024-08-20 13:34] VITALS: BP 141/78; PULSE 70; RESP 18; TEMP 36.7; O2SAT 98
== END 2024-08-20 13:34 | disposition home or self-care (01) ==
PROVIDERS: Emergency Provider Emergency Medicine; PCP Internal Medicine
DX: S09.90XA Unspecified injury of head, initial encounter (principal); V43.52XA Car driver injured in collision with other type car in traffic accident, initial encounter; M76.52 Patellar tendinitis, left knee; Y93.89 Activity, other specified; Y92.414 Local residential or business street as the place of occurrence of the external cause; Y99.9 Unspecified external cause status
CPT/HCPCS: 70450; 72125; 73564; 99282; 99284

== ENCOUNTER 2024-09-19 12:38 | Outpatient (AMB) | payer OTHER, SELFPAY ==
[2024-09-19 12:51] VITALS: BP 108/74; PULSE 82; O2SAT 96; BMI 27.9
--- NOTE | 2024-09-19 12:51 | A.OFFPC_ITS ---
Vital Signs 09/19/24 12:51 Height 5 ft 10 in Weight 194 lb 6 oz BMI 27.9 BP 108/74 Blood Pressure Location Lt brachial Position Sitting Pulse 82 Pulse Source Pulse Oximeter Pulse Oximetry (%) 96 Oxygen Delivery Method Room Air Intake Visit Reasons: Leg pain (gout) Manager Provider Relations Required: No Accompanied by: Self / Same As Patient Allergies No Known Allergies Allergy (Verified 09/19/24 14:21) Medication List - Last Reconciled 09/19/24 by Juan Ngo MD allopurinol 300 mg PO DAILY 90 days blood sugar diagnostic (FreeStyle Lite Strips) As directed once a day - Dx: E11.9 -- diabetes blood-glucose meter (FreeStyle Lite Meter kit) As directed - Dx: E11.9 -- diabetes cholecalciferol (vitamin D3) 50 mcg PO DAILY 90 days colchicine 0.6 mg PO DAILY 30 days cyclobenzaprine 5 mg PO TID PRN diclofenac potassium 50 mg PO DAILY PRN 30 days lancets (FreeStyle Lancets) As directed metformin ER 1,000 mg (2 x 500 mg) PO BID peg 3350-electrolytes 236-22.74-6.74 -5.86 gram (Golytely) 240 mL PO Q10M 1 day prednisone 40 mg (2 x 20 mg) PO DAILY 5 days sitagliptin phosphate (Januvia) 100 mg PO DAILY 90 days tadalafil 20 mg PO DAILY 90 days Tobacco use date assessed: 09/19/24 Dental Screening Dental Screen Date: 09/19/24 Did you have a dental visit in the last 12 months?: Yes Did you have a dental problem in the last 6 months where you did not have access to dental care?: No Was dental information given to patient?: Patient has dentist HPI Leg pain (gout) HPI Details Patient comes in today complaining of increasing pain in his right foot, which he states started about 3 days ago Relates that the pain started around his right big toe area and that is when he called up last Thursday to ask for a refill on his Allopurinol 300 mg although he states that he has been taking this over the weekend but it has not really helped with his pain at all Feels that his right foot pain has gotten worse and now appears to involve the dorsum of his right foot as well, which feels slightly warm to touch and looks to have a slight reddish color on top of his foot He can barely put any weight on his right foot at present due to the pain and he is clearly hobbled when he is walking He denies any recent injury or trauma to his foot He denies any fever, headaches or dizziness Denies any chest pains, no SOB No nausea/vomiting, no abdominal pain No change in bowel habits noted PFSH Medical History Erectile dysfunction Gout Obesity (BMI 30-39.9) Mixed hyperlipidemia Diabetes mellitus Surgical History History of eye surgery Family History Father No problems noted. 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 1. Little interest or pleasure in doing things: not at all 2. Feeling down, depressed, or hopeless: not at all 3. Trouble falling or staying asleep, or sleeping too much: not at all 4. Feeling tired or having little energy: not at all 5. Poor appetite or overeating: not at all 6. Feeling bad about yourself - or that you are a failure or have let yourself or your family down: not at all 7. Trouble concentrating on things, such as reading the newspaper or watching television: not at all 8. Moving or speaking so slowly that other people could have noticed. Or the opposite - being so fidgety or restless that you have been moving around a lot more than usual: not at all 9. Thoughts that you would be better off or of hurting yourself in some way: not at all Total score: 0 Depression Screening Interpretation: Negative Depression Screening Done: Yes 64993 - PHQ-9 Billing: Yes Source: Developed by Shana Mendoza, Agustín Jane and colleagues, with an educational yamil from [employer]. Thrive Questionnaire Date Thrive assessed: 09/19/24 I am a: Patient What is your living situation today?: I have a steady place to live Within the past 12 months, did the food you bought not last and you didn't have the money to get more?: Never true Within the past 12 months, did you worry whether your food would run out before you got money to buy more?: Never true Do you have trouble paying for medicines?: No Do you have trouble getting transportation to medical appointments?: No Do you have trouble paying your heating and electricity bill?: No Do you have trouble taking care of your child, family member or friend?: No Do you have trouble with day-to-day activities such as bathing, preparing meals, shopping, managing finances, etc.?: No Are you currently unemployed and looking for a job?: No Are you interested in more education?: No Please select the resources that you would like help with: None Currently or been in a relationship where the following occur: No concerns reported THRIVE Score: 0 AUDIT C Alcohol Use Questionnaire (AUDIT-C) 1. How often do you have a drink containing alcohol?: Never 3. How often do you have six or more drinks on one occasion?: Never Total Score: 0 Score Reviewed/Action Taken: Yes MEJIA-7 AMB Questionnaire MEJIA-7 Date MEJIA - 7 assessed: 09/19/24 Feeling nervous, anxious, or on edge: 0 = Not at all Not being able to stop or control worryin = Not at all Worrying too much about different things: 0 = Not at all Trouble relaxin = Not at all Being so restless that it is hard to sit still: 0 = Not at all Becoming easily annoyed or irritable: 0 = Not at all Feeling afraid as if something awful might happen: 0 = Not at all Total MEJIA-7 score (0-4 normal; 5-9 mild; 10-14 moderate; 15-21 severe): 0 Source: Developed by Shana Mendoza Kurt Kroenke and colleagues, with an educational yamil from [employer]. MEJIA-7 Assessment Billing MEJIA-7 Assessment Tool: MEJIA-7 Assessment 07440 Review of Systems Const Denies chills, Denies fatigue, Denies fever(s) and Denies headache(s) ENT Denies dysphagia, Denies dizziness, Denies headache(s), Denies neck pain, Denies odynophagia and Denies sore throat Card Denies chest pain, Denies palpitations and Denies dyspnea Resp Denies chest congestion, Denies cough and Denies dyspnea GI Denies abdominal pain, Denies constipation, Denies dysphagia, Denies heartburn, Denies diarrhea, Denies nausea, Denies odynophagia and Denies vomiting Denies dysuria, Denies nocturia and Denies urinary frequency Musc Details: increased pain of the right foot - see HPI Denies back pain and Denies neck pain Skin/Breast Denies rash Neuro Denies dizziness and Denies headache(s) Endo Denies fatigue and Denies palpitations Physical exam (Primary Care) Vital Signs: Last Vital Signs Pulse 82 09/19/24 12:51 BP 108/74 09/19/24 12:51 Pulse Ox 96 09/19/24 12:51 Oxygen Delivery Method Room Air 09/19/24 12:51 BMI result Body Mass Index 27.9 Tobacco/Smoking Status: Tobacco use Status Tobacco use date assessed 09/19/24 09/19/24 12:59 Patient Tobacco Use Status Never used Tobacco 09/19/24 12:59 e-Cigarette/Vaping Use Never Used 09/19/24 12:59 PHQ-9: PHQ-9 Score PHQ-9: Total score 0 09/19/24 14:30 Depression Screening Interpretation: Negative Thrive Assessment: Date of Thrive Assessment Date Thrive assessed 09/19/24 09/19/24 12:59 Currently or been in a relationship where the following occur: No concerns reported Const General: no acute distress and alert Neck Neck: Yes supple and No lymphadenopathy Thyroid: Thyroid normal Resp Auscultation: clear to auscultation bilaterally, no rales and no wheezes Cardio Rate: regular rate Rhythm: regular rhythm Heart sounds: no murmurs GI Palpation (GI): Soft to palpation and nontender Auscultation: normal bowel sounds General: Yes no CVA tenderness Back/Spine/Pelvis Back: no CVA tenderness Skin Rashes: no rashes Extrem Other: (+) tenderness on palpation over the dorsum of the right foot as well as around the right big toe area; the dorsum of the foot has a slight erythema to it and is slightly warm to touch General: Yes no clubbing, cyanosis or edema Coding Level of Care Code Est Pt Level 3 (47234) Diagnoses Right foot pain M79.671 Colon cancer screening Z12.11 Additional Codes MEJIA-7 Assessment Billing - MEJIA-7 Assessment Tool: MEJIA-7 Assessment 50476 ([id number]) PHQ-9 - 64854 - PHQ-9 Billing: Yes ([id number]) Assessment & Plan Assessment & Plan (1) Right foot pain: Code(s): M79.671 - Pain in right foot Category: Medical Plan: Possible gout flare up Reinforced low purine diet Will start patient on oral Prednisone 40 mg QD x 5 days and also start him back on Colchicine 0.6 mg QD Will send him for x-rays of the right foot CLIF for further evaluation Continue Allopurinol 300 mg QD (2) Colon cancer screening: Code(s): Z12.11 - Encounter for screening for malignant neoplasm of colon Category: Medical Plan: Will refer him again to gastroenterology for screening colonoscopy States that he was seen initially for intake back in June 2023 but never did get his colonoscopy scheduled after that for unknown reasons Plan Follow up as scheduled next month Orders: Orders XR foot RT min 3V 09/19/24 M79.671 - Pain in right foot Referrals Gastroenterology Referral Z12.11 - Encounter for screening for malignant neoplasm of colon Medications: New prednisone 40 mg (2 x 20 mg) PO DAILY 5 days 10 tabs 0RF colchicine 0.6 mg PO DAILY 30 days 30 tabs 1RF gout
== END 2024-09-19 13:30 | disposition home or self-care (01) ==
PROVIDERS: PCP Internal Medicine; Visit Provider Internal Medicine
DX: M79.671 Pain in right foot (principal); Z12.11 Encounter for screening for malignant neoplasm of colon

== ENCOUNTER → 2024-09-19 13:45 | Outpatient (BNV) | payer OTHER, SELFPAY | PROVIDERS: PCP Internal Medicine; Visit Provider Radiology Vascular & Interventional Radiology | DX: M79.671 Pain in right foot (principal) | CPT/HCPCS: 73630 ==

== ENCOUNTER 2024-09-29 11:54 | Outpatient (AMB) | payer OTHER, SELFPAY ==
[2024-09-29 12:02] VITALS: BP 104/70; PULSE 69; TEMP 36.6; O2SAT 99; BMI 26.6
--- NOTE | 2024-09-29 12:02 | AM.OFFWIN_ITS ---
Intake Vital Signs 09/29/24 12:02 Height 5 ft 11 in Weight 191 lb BMI 26.6 BP 104/70 Blood Pressure Location Rt brachial Position Sitting Pulse 69 Pulse Source Pulse Oximeter Temp 97.9 F Temp Source Oral Pulse Oximetry (%) 99 Oxygen Delivery Method Room Air Intake Visit Reasons: EP Gout RT leg Intake Note: Pt is here today c/o Rt foot pain ? gout: was seen 09/26/24 for the same thing Patient Tobacco Use Status: Never used Tobacco Allergies No Known Allergies Allergy (Verified 09/26/24 12:32) HPI HPI Comments History of Present Illness Details History of Present Illness - The patient is a 54-year-old male pres enting with ongoing pain and inflammation from a gout flare on his right ankle. - Chronic gout has been ongoing, with th e current episode lasting 13 days. - Takes allopurinol 300mg daily - Visited Dr. Ngo, who prescribed p rednisone and colchicine; condition did not improve. - Emergency department visit on September 26 resulted in administration of Aleve BID, labs wnl, but significant pain persists. - Completed x-rays showed normal finding s. - Pain is described as refractory with a pproximately slight improvement on Aleve BID but pt unable to work as difficulty ambulating Physical Exam General: Cooperative, healthy appearing, comfortable, no acute distress and well developed Orientation: Patient oriented x3 Limitations: No limitations Head: Normal to inspection Ears: Hearing grossly normal bilaterally Nose: Normal external nose present Face and sinus: Normal facial exam Eyes: Appearance normal, both eyes and all related structures Neck: Normal visual inspection and Yes full ROM Respiratory: Normal respiratory effort and able to speak in complete sentences. Skin: No rashes or lesions noted Neuro: Patient oriented x3 Extremities: Tenderness in the right ankle, swelling and slight erythema noted [facility] Medical History Erectile dysfunction Gout Obesity (BMI 30-39.9) Mixed hyperlipidemia Diabetes mellitus Surgical History History of eye surgery Family History Father No problems noted. 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 Cognitive needs: No Hearing needs: No Vision needs: No Review of Systems Const All systems reviewed & are unremarkable except as noted in HPI and below Physical Exam Vital Signs: Last Vital Signs Temp 97.9 F 09/29/24 12:02 Pulse 69 09/29/24 12:02 BP 104/70 09/29/24 12:02 Pulse Ox 99 09/29/24 12:02 Oxygen Delivery Method Room Air 09/29/24 12:02 BMI result Body Mass Index 26.6 Assessment & Plan Assessment & Plan (1) Gout attack: Code(s): M10.9 - Gout, unspecified Qualifiers: Gout site: ankle Encounter type: subsequent encounter Laterality: right Plan: Plan Considering the patient's chronic gout is refractory to the current regimen, the plan includes switching from Naprosyn to indomethacin 50mg TID. If no improvement after 7 days, he should follow up with his primary care provider is advised for reevaluating the therapeutic approach, which may include additional imaging like a CT scan to rule out other underlying causes not detected through x-rays. The continued avoidance of foods high in uric acid is crucial to managing symptoms effectively. Coordination with a primary care provider may be needed for further intervention planning. Patient was informed and verbally consented to the use of an ambient scribe for clinic note documentation during this visit. Medications: New indomethacin administer with food or milk 50 mg PO TID 21 caps 0RF Discontinued naproxen Discontinued Reason: Duplicate 500 mg PO BID 7 days 14 tabs 0RF Coding Level of Care Code Est Pt Level 4 (28107) Diagnoses Gout attack M10.9 Gout site: ankle Encounter type: subsequent encounter Laterality: right
== END 2024-09-29 12:21 | disposition home or self-care (01) ==
LOC: HO.HMCWIC 11:54
PROVIDERS: PCP Internal Medicine; Visit Provider Physician Assistant
DX: M10.9 Gout, unspecified (principal)

== ENCOUNTER → 2024-09-29 11:54 | Outpatient (BNVA) | payer OTHER, SELFPAY | PROVIDERS: PCP Internal Medicine; Visit Provider Physician Assistant | DX: M10.9 Gout, unspecified (principal) | CPT/HCPCS: 99212 ==

== ENCOUNTER 2024-10-03 14:58 | Outpatient (AMB) | payer OTHER, SELFPAY ==
--- NOTE | 2024-10-03 14:59 | MHC.PC.OV ---
Vital Signs 10/03/24 15:00 Height 5 ft 11 in Weight 188 lb 6 oz BMI 26.3 BP 100/62 Blood Pressure Location Lt brachial Position Sitting Pulse 64 Pulse Source Pulse Oximeter Temp 98.4 F Temp Source Oral Pulse Oximetry (%) 97 Oxygen Delivery Method Room Air Intake Visit Reasons: swollen rt leg/ Gout flare up [employer] Systems [employer] Equipment [employer] Required: Yes Accompanied by: Spouse Allergies No Known Allergies Allergy (Verified 10/03/24 15:12) Medication List - Last Reconciled 10/03/24 by CHATA Hathaway allopurinol 300 mg PO DAILY 90 days blood sugar diagnostic (FreeStyle Lite Strips) As directed once a day - Dx: E11.9 -- diabetes blood-glucose meter (FreeStyle Lite Meter kit) As directed - Dx: E11.9 -- diabetes cholecalciferol (vitamin D3) 50 mcg PO DAILY 90 days diclofenac potassium 50 mg PO DAILY PRN 30 days indomethacin 50 mg PO TID lancets (FreeStyle Lancets) As directed metformin ER 1,000 mg (2 x 500 mg) PO BID peg 3350-electrolytes 236-22.74-6.74 -5.86 gram (Golytely) 240 mL PO Q10M 1 day sitagliptin phosphate (Januvia) 100 mg PO DAILY 90 days tadalafil 20 mg PO DAILY 90 days Tobacco use date assessed: 10/03/24 Dental Screening Dental Screen Date: 10/03/24 Did you have a dental visit in the last 12 months?: Yes Did you have a dental problem in the last 6 months where you did not have access to dental care?: No Was dental information given to patient?: Patient has dentist HPI swollen rt leg/ Gout flare up HPI Details The patient is 54 year old male with significant past medical history of DM, HLD, and chronic refractory gout Patient the patient of Dr. Ngo was last seen in office on 09/19/24-at that time the patient was treated for a possible gout flare up. The patient was placed on oral Prednisone 40 mg QD x 5 days and also started Colchicine 0.6 mg QD-and was sent for an x-ray of the right foot-that showed no acute findings. Per patient's reports, they were unable to get an appointment with the office on 09/26/24-so they went to the emergency room. There the patient was given ketorolac 15 mg IM and was started on naproxen 500 mg b.i.d. x7 days in the ED. The patient was referred orthopedics, who referred the patient to rheumatology-for which the patient has an appt coming up in next month. Ultimately, the patient ended up in urgent care on 09/29/24-for continuous pain in right foot. In the urgent care, naproxen 500 mg was discontinued and the patient was started on indomethacin 50 mg TID. Patient is presented in office today-for refratory chronic gout pain in right foot/ankle. Patient reports that he is unable to get any lasting relief. Reports that his pain decrease some with treatments, but he has not had any good relief and has been out of work since the . 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 He denies any injury to his foot/ankle-He reports that he has been dealing with this issue for a longtime. Usually, the medications would have worked by now and he would have been back to work. It seems like each flare up has taken longer to be controlled. [facility] Medical History Erectile dysfunction Gout Obesity (BMI 30-39.9) Mixed hyperlipidemia Diabetes mellitus Surgical History History of eye surgery Family History Father No problems noted. 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 1. Little interest or pleasure in doing things: not at all 2. Feeling down, depressed, or hopeless: not at all 3. Trouble falling or staying asleep, or sleeping too much: not at all 4. Feeling tired or having little energy: not at all 5. Poor appetite or overeating: not at all 6. Feeling bad about yourself - or that you are a failure or have let yourself or your family down: not at all 7. Trouble concentrating on things, such as reading the newspaper or watching television: not at all 8. Moving or speaking so slowly that other people could have noticed. Or the opposite - being so fidgety or restless that you have been moving around a lot more than usual: not at all 9. Thoughts that you would be better off or of hurting yourself in some way: not at all Total score: 0 Depression Screening Interpretation: Negative Depression Screening Done: Yes 39288 - PHQ-9 Billing: Yes Source: Developed by Drs. Thuan Merchant, Shana Coppola, Agustín Jane and colleagues, with an educational yamil from [employer]. Thrive Questionnaire Date Thrive assessed: 10/03/24 I am a: Patient What is your living situation today?: I have a steady place to live Within the past 12 months, did the food you bought not last and you didn't have the money to get more?: Never true Within the past 12 months, did you worry whether your food would run out before you got money to buy more?: Never true Do you have trouble paying for medicines?: No Do you have trouble getting transportation to medical appointments?: No Do you have trouble paying your heating and electricity bill?: No Do you have trouble taking care of your child, family member or friend?: No Do you have trouble with day-to-day activities such as bathing, preparing meals, shopping, managing finances, etc.?: No Are you currently unemployed and looking for a job?: No Are you interested in more education?: No Please select the resources that you would like help with: None Currently or been in a relationship where the following occur: No concerns reported THRIVE Score: 0 AUDIT C Alcohol Use Questionnaire (AUDIT-C) 1. How often do you have a drink containing alcohol?: Never 3. How often do you have six or more drinks on one occasion?: Never Total Score: 0 Score Reviewed/Action Taken: Yes MEJIA-7 AMB Questionnaire MEJIA-7 Date MEJIA - 7 assessed: 10/03/24 Feeling nervous, anxious, or on edge: 0 = Not at all Not being able to stop or control worryin = Not at all Worrying too much about different things: 0 = Not at all Trouble relaxin = Not at all Being so restless that it is hard to sit still: 0 = Not at all Becoming easily annoyed or irritable: 0 = Not at all Feeling afraid as if something awful might happen: 0 = Not at all Total MEJIA-7 score (0-4 normal; 5-9 mild; 10-14 moderate; 15-21 severe): 0 Source: Developed by Drs. Thuan Merchant, Shana Coppola, Agustín Jane and colleagues, with an educational yamil from [employer]. MEJIA-7 Assessment Billing MEJIA-7 Assessment Tool: MEJIA-7 Assessment 15169 Review of Systems Const Details: Denies chills, Denies fatigue, Denies fever(s), Denies headache(s) and Denies weakness HEENT Denies change in vision, Denies dizziness, Denies headache(s), Denies hearing loss, Denies nasal congestion, Denies sinus pain, Denies sinus pressure and Denies sore throat Card Denies chest pain, Denies lightheadedness, Denies dyspnea and Denies other (palpitations) Resp Denies cough, Denies dyspnea and Denies wheezing GI Denies abdominal pain, Denies melena, Denies hematochezia, Denies change in bowel habits, Denies dyspepsia and Denies nausea Denies hematuria and Denies dysuria Musc Denies abnormal gait, reports pain and swelling in right ankle/foot, Denies numbness and Denies tingling Skin/Breast Denies rash, Denies unusual bruising and Denies wounds Neuro Denies abnormal gait, Denies dizziness, Denies headache(s), Denies memory loss, Denies numbness, Denies Sensory deficit (Neuro), Denies tingling and Denies weakness Psych Denies anxiety, Denies depression and Denies memory loss Endo Denies cold intolerance, Denies fatigue, Denies heat intolerance, Denies polydipsia and Denies polyuria Schuyler/Lymph Denies easy bleeding and Denies easy bruising Aller/Immun Denies wheezing Physical exam (Primary Care) Vital Signs: Last Vital Signs Temp 98.4 F 10/03/24 15:00 Pulse 64 10/03/24 15:00 BP 100/62 10/03/24 15:00 Pulse Ox 97 10/03/24 15:00 Oxygen Delivery Method Room Air 10/03/24 15:00 BMI result Body Mass Index 26.3 Tobacco/Smoking Status: Tobacco use Status Tobacco use date assessed 10/03/24 10/03/24 15:06 Patient Tobacco Use Status Never used Tobacco 10/03/24 15:06 e-Cigarette/Vaping Use Never Used 10/03/24 15:06 PHQ-9: PHQ-9 Score PHQ-9: Total score 0 10/03/24 22:35 Depression Screening Interpretation: Negative Thrive Assessment: Date of Thrive Assessment Date Thrive assessed 10/03/24 10/03/24 15:06 Currently or been in a relationship where the following occur: No concerns reported Const Other: General: no acute distress, well developed, alert and awake Nutritional Appearance: well nourished Orientation/consciousness: patient oriented x3 HENMT Head: Yes normocephalic and Yes atraumatic Eyes Pupils: Equal, round and reactive pupils present and Pupil accommodation reflex normal EOM: EOMs intact bilaterally Neck Neck: Yes normal visual inspection, Yes no lymphadenopathy and Yes trachea midline Thyroid: Thyroid normal Carotids: no bruits Lymphatic: no lymphadenopathy noted Chest Chest palpation & inspection: normal inspection of the chest Resp Effort & Inspection: normal respiratory effort Auscultation: clear to auscultation bilaterally Cardio Rate: regular rate Rhythm: regular rhythm Heart sounds: S1 normal heart sound present, S2 normal heart sound present, no gallops, no murmurs and no rubs Bruits: no abdominal aortic bruits and no carotid bruits GI Palpation (GI): abdomen soft, rounded and nontender Auscultation: normal bowel sounds General: Yes no CVA tenderness Back/Spine/Pelvis Back: no CVA tenderness Cervical Spine: cervical ROM normal and No Cervical spine tenderness Thoracic/Lumbar Spine: thoraco-lumbar ROM normal, No pain with thoraco-lumbar ROM, No thoracic spinal tenderness and No lumbar spinal tenderness. Right foot/ankle edematous, warmth touch and tender to touch, +ROM Skin General: warm and dry. Normal skin color. Normal skin turgor, right foot/ankle edema Lesions: no lesions, Neuro General: patient oriented x3 Cognition (Neuro): normal cognition Gait exam (Neuro): Limping-ambulating with cane Extrem General: Yes normal to inspection, No edema and No calf tenderness Psych Appearance: grossly normal Affect: normal affect Attitude: cooperative Thought process: Normal thought process present Coding Level of Care Code Est Pt Level 3 (35420) Diagnoses Acute gout of right foot, unspecified cause M10.9 Gout site: foot Laterality: right Gout etiology: unspecified cause Additional Codes MEJIA-7 Assessment Billing - MEJIA-7 Assessment Tool: MEJIA-7 Assessment 81991 ([id number]) PHQ-9 - 76202 - PHQ-9 Billing: Yes ([id number]) Assessment & Plan Assessment & Plan (1) Gout attack: Code(s): M10.9 - Gout, unspecified Category: Medical Qualifiers: Gout site: foot Laterality: right Gout etiology: unspecified cause Qualified Code(s): M10.9 - Gout, unspecified Plan: Reinforced low purine diet Colchicine 1.2 mg once Colchicine 0.6 mg daily times 14 days prednisone see taper instructions 4 tabs x2, 3 tabs x 2 days, 2 tabs x 2days, 1 tab x 2 days =20 tabs over 8 days. Keep appt on 10/10/24 Plan I personally spent 36 minutes reviewing the chart, caring for the patient and documenting after the visit. Medications: New colchicine 1.2 mg (2 x 0.6 mg) PO ONCE 2 tabs 0RF M10.9 - Gout, unspecified colchicine start the day after colchicine 1.2 mg is given 0.6 mg PO DAILY 14 tabs 0RF prednisone see taper instructions 4 tabs x2, 3 tabs x 2 days, 2 tabs x 2days, 1 tab x 2 days =20 tabs over 8 days. 10 mg PO DIRECTED 20 ea 0RF M10.9 - Gout, unspecified
[2024-10-03 15:00] VITALS: BP 100/62; PULSE 64; TEMP 36.9; O2SAT 97; BMI 26.3
== END 2024-10-03 15:58 | disposition home or self-care (01) ==
PROVIDERS: PCP Internal Medicine
DX: M10.9 Gout, unspecified (principal)

== ENCOUNTER → 2024-10-03 14:58 | Outpatient (BNVA) | payer OTHER, SELFPAY | PROVIDERS: PCP Internal Medicine | DX: M10.9 Gout, unspecified (principal) | CPT/HCPCS: 96127; 99212 ==

== ENCOUNTER 2024-10-07 07:33 | Outpatient (REF) | payer OTHER, SELFPAY ==
[2024-10-07 07:57] LABS: MANUAL DIFF FLAG NO
[2024-10-07 08:02] LABS: Basophils Absolute Auto 0.1 X10*3/uL (0.0-0.2); Eosinophils Absolute Auto 0.4 X10*3/uL (0.0-0.4); Eosinophils Percent Auto 5.6 % (0-4); Hemoglobin 15.3 g/dl (14.0-18.0); Imm Gran Abs Auto 0.03 X10*3/uL (0.00-0.03); Imm Gran Pct Auto 0.4 % (0.0-0.4); Lymphocytes Absolute Auto 1.9 X10*3/uL (1.2-4.9); Lymphocytes Percent Auto 26.2 % (20-40); Mean Corpuscular HGB Conc 33.3 g/dl (31.0-36.0); Mean Corpuscular Hemoglobin 28.8 pg (27.0-33.0); Mean Corpuscular Volume 86.6 fL (80.0-98.0); Mean Platelet Volume 9.2 fL (9.4-12.4); Monocytes Absolute Auto 0.6 X10*3/uL (0.1-1.2); Monocytes Percent Auto 7.7 % (2-11); Neutrophils Absolute Auto 4.4 x10*3/uL (2.0-8.3); Neutrophils Percent Auto 59.1 % (45-73); Platelet Count 358 X10*3/uL (160-400); Red Blood Count 5.31 X10*6/uL (4.60-5.80); White Blood Count 7.4 X10*3/uL (4.8-10.8)
[2024-10-07 08:09] LABS: Estimated Average Glucose 166 mg/dL; Hemoglobin A1C 226.9782 umol/L; Hemoglobin A1c % 7.4 % (<6.0); Total Hemoglobin (HGBA1C) 3972.6724 umol/L
[2024-10-07 08:33] LABS: Alanine Aminotransferase 24 U/L (0-40); Albumin Level 4.1 g/dL (3.5-5.0); Anion Gap 13 (12-20); Aspartate Amino Transferase 27 U/L (5-37); Bilirubin Total 0.6 mg/dL (0.0-1.0); Blood Urea Nitrogen 13 mg/dL (9-16); Calcium 9.3 mg/dL (8.4-10.2); Carbon Dioxide 27 mmol/L (22-29); Chloride 109 mmol/L (96-108); Cholesterol 141 mg/dL (<200); Estimated Glomerular Filt Rate > 60; Glucose Fasting 150 mg/dL (60-99); HDL Cholesterol 29 mg/dL (>40); LDL Cholesterol Calculated 74 mg/dL (<100); Potassium 4.5 mmol/L (3.3-5.1); Sodium 144 mmol/L (135-145); Total Protein 7.5 g/dL (6.5-8.0); Triglycerides 193 mg/dL (<150); Uric Acid 9.2 mg/dL (3.4-7.0)
[2024-10-07 08:36] LABS: Alkaline Phosphatase 82 U/L (39-117)
[2024-10-07 08:49] LABS: Appearance Urine Clear; Color Urine Yellow; Glucose Urine UA Negative (Negative); Leukocyte Esterase Urine Negative (Negative); Nitrite Urine Negative (Negative); Specific Gravity - Urine 1.015 (1.005-1.025); Urine Blood Negative (Negative); Urine Ketones Negative (Negative); Urine Protein Negative (Neg-Trace)
[2024-10-07 08:50] LABS: Vitamin D 25-OH Total 41.9 ng/mL (>30)
[2024-10-07 09:16] LABS: Creatinine Urine 84.42 mg/dL; Microalbum/Creatinine Ratio Ur 8.2 ug/mg cr (<30)
== END 2024-10-07 07:34 | disposition home or self-care (01) ==
LOC: HO.LAB 07:33
PROVIDERS: PCP Internal Medicine; Visit Provider Internal Medicine
DX: E11.9 Type 2 diabetes mellitus without complications (principal); E78.00 Pure hypercholesterolemia, unspecified; M10.9 Gout, unspecified; E55.9 Vitamin D deficiency, unspecified; R30.0 Dysuria
CPT/HCPCS: 36415; 80053; 80061; 81003; 82043; 82306; 82570; 83036; 84550; 85025

== ENCOUNTER 2024-10-10 09:47 | Outpatient (AMB) | payer OTHER, SELFPAY ==
[2024-10-10 09:49] VITALS: BP 110/68; PULSE 73; TEMP 36.1; O2SAT 98; BMI 26.1
--- NOTE | 2024-10-10 09:49 | MHC.PC.OV ---
Vital Signs 10/10/24 09:49 Height 5 ft 11 in Weight 187 lb BMI 26.1 BP 110/68 Blood Pressure Location Lt brachial Position Sitting Pulse 73 Pulse Source Pulse Oximeter Temp 96.9 F Temp Source Temporal Artery Scan Pulse Oximetry (%) 98 Oxygen Delivery Method Room Air Intake Visit Reasons: F/U Projects Manager Required: No Accompanied by: Self / Same As Patient Allergies No Known Allergies Allergy (Verified 10/10/24 10:29) Medication List - Last Reconciled 10/10/24 by Juan Ngo MD allopurinol 300 mg PO DAILY 90 days blood sugar diagnostic (FreeStyle Lite Strips) As directed once a day - Dx: E11.9 -- diabetes blood-glucose meter (FreeStyle Lite Meter kit) As directed - Dx: E11.9 -- diabetes cholecalciferol (vitamin D3) 50 mcg PO DAILY 90 days colchicine 1.2 mg (2 x 0.6 mg) PO ONCE colchicine 0.6 mg PO DAILY diclofenac potassium 50 mg PO DAILY PRN 30 days indomethacin 50 mg PO TID lancets (FreeStyle Lancets) As directed metformin ER 1,000 mg (2 x 500 mg) PO BID peg 3350-electrolytes 236-22.74-6.74 -5.86 gram (Golytely) 240 mL PO Q10M 1 day prednisone 10 mg PO DIRECTED sitagliptin phosphate (Januvia) 100 mg PO DAILY 90 days tadalafil 20 mg PO DAILY 90 days Tobacco use date assessed: 10/10/24 Dental Screening Dental Screen Date: 10/10/24 Did you have a dental visit in the last 12 months?: Yes Did you have a dental problem in the last 6 months where you did not have access to dental care?: No Was dental information given to patient?: Patient has dentist HPI F/U HPI Details Patient comes in today for his follow up visit States that he is still experiencing recurrent pain over his right ankle (likely due to gout) but his overall right foot/ankle pain has subsided a lot from a few weeks ago He has been referred to and is now scheduled to be seen by rheumatology next month on 11/09/2024 for further evaluation States that he feels okay otherwise He denies any headaches or dizziness Denies any chest pains, no SOB No nausea/vomiting, no abdominal pain No change in bowel habits noted He had his follow up labs done a few days ago - to discuss his results [facility] Medical History Erectile dysfunction Gout Obesity (BMI 30-39.9) Mixed hyperlipidemia Diabetes mellitus Surgical History History of eye surgery Family History Father No problems noted. 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 1. Little interest or pleasure in doing things: not at all 2. Feeling down, depressed, or hopeless: not at all 3. Trouble falling or staying asleep, or sleeping too much: not at all 4. Feeling tired or having little energy: not at all 5. Poor appetite or overeating: not at all 6. Feeling bad about yourself - or that you are a failure or have let yourself or your family down: not at all 7. Trouble concentrating on things, such as reading the newspaper or watching television: not at all 8. Moving or speaking so slowly that other people could have noticed. Or the opposite - being so fidgety or restless that you have been moving around a lot more than usual: not at all 9. Thoughts that you would be better off or of hurting yourself in some way: not at all Total score: 0 Depression Screening Interpretation: Negative Depression Screening Done: Yes 83561 - PHQ-9 Billing: Yes Source: Developed by Drs. Thuan Merchant, Shana Coppola, Agustín Jane and colleagues, with an educational yamil from [employer]. Thrive Questionnaire Date Thrive assessed: 10/10/24 I am a: Patient What is your living situation today?: I have a steady place to live Within the past 12 months, did the food you bought not last and you didn't have the money to get more?: Never true Within the past 12 months, did you worry whether your food would run out before you got money to buy more?: Never true Do you have trouble paying for medicines?: No Do you have trouble getting transportation to medical appointments?: No Do you have trouble paying your heating and electricity bill?: No Do you have trouble taking care of your child, family member or friend?: No Do you have trouble with day-to-day activities such as bathing, preparing meals, shopping, managing finances, etc.?: No Are you currently unemployed and looking for a job?: No Are you interested in more education?: No Please select the resources that you would like help with: None Currently or been in a relationship where the following occur: No concerns reported THRIVE Score: 0 AUDIT C Alcohol Use Questionnaire (AUDIT-C) 1. How often do you have a drink containing alcohol?: Never 3. How often do you have six or more drinks on one occasion?: Never Total Score: 0 Score Reviewed/Action Taken: Yes MEJIA-7 AMB Questionnaire MEJIA-7 Date MEJIA - 7 assessed: 10/10/24 Feeling nervous, anxious, or on edge: 0 = Not at all Not being able to stop or control worryin = Not at all Worrying too much about different things: 0 = Not at all Trouble relaxin = Not at all Being so restless that it is hard to sit still: 0 = Not at all Becoming easily annoyed or irritable: 0 = Not at all Feeling afraid as if something awful might happen: 0 = Not at all Total MEJIA-7 score (0-4 normal; 5-9 mild; 10-14 moderate; 15-21 severe): 0 Source: Developed by Drs. Thuan Merchant, Shana Coppola, Agustín Jane and colleagues, with an educational yamil from [employer]. MEJIA-7 Assessment Billing MEJIA-7 Assessment Tool: MEJIA-7 Assessment 69209 Review of Systems Const Denies chills, Denies fatigue, Denies fever(s) and Denies headache(s) ENT Denies dysphagia, Denies dizziness, Denies otalgia, Denies headache(s), Denies neck pain, Denies odynophagia and Denies sore throat Card Denies chest pain, Denies palpitations and Denies dyspnea Resp Denies chest congestion, Denies cough and Denies dyspnea GI Denies abdominal pain, Denies constipation, Denies dysphagia, Denies heartburn, Denies diarrhea, Denies nausea, Denies odynophagia and Denies vomiting Denies difficulty urinating, Denies dysuria, Denies nocturia and Denies urinary frequency Musc Denies back pain, Reports arthralgias (recurrent over the right ankle - due to gout), Denies joint swelling and Denies neck pain Skin/Breast Denies rash Neuro Denies dizziness and Denies headache(s) Endo Denies fatigue and Denies palpitations Physical exam (Primary Care) Vital Signs: Last Vital Signs Temp 96.9 F 10/10/24 09:49 Pulse 73 10/10/24 09:49 BP 110/68 10/10/24 09:49 Pulse Ox 98 10/10/24 09:49 Oxygen Delivery Method Room Air 10/10/24 09:49 BMI result Body Mass Index 26.1 Tobacco/Smoking Status: Tobacco use Status Tobacco use date assessed 10/10/24 10/10/24 09:50 Patient Tobacco Use Status Never used Tobacco 10/10/24 09:50 e-Cigarette/Vaping Use Never Used 10/10/24 09:50 PHQ-9: PHQ-9 Score PHQ-9: Total score 0 10/10/24 10:33 Depression Screening Interpretation: Negative Thrive Assessment: Date of Thrive Assessment Date Thrive assessed 10/10/24 10/10/24 09:50 Currently or been in a relationship where the following occur: No concerns reported Const General: no acute distress and alert HENMT Ears: TM's normal bilaterally and EAC's normal Throat: Yes posterior oropharynx normal and Yes tonsils normal Neck Neck: Yes supple and No lymphadenopathy Thyroid: Thyroid normal Resp Auscultation: clear to auscultation bilaterally, no rales and no wheezes Cardio Rate: regular rate Rhythm: regular rhythm Heart sounds: no murmurs GI Palpation (GI): Soft to palpation and nontender Auscultation: normal bowel sounds General: Yes no CVA tenderness Back/Spine/Pelvis Back: no CVA tenderness Thoracic/Lumbar Spine: No lumbar spinal tenderness Skin Rashes: no rashes Extrem General: Yes no clubbing, cyanosis or edema Right lower extremity: ankle Details: tenderness; no swelling and foot Details: normal to inspection Results Reviewed Results Reviewed: Laboratory Tests 10/07/24 10/07/24 07:50 07:51 WBC 7.4 Hgb 15.3 Hct 46.0 Plt Count 358 Sodium 144 Potassium 4.5 Creatinine 0.95 Estimated GFR > 60 Fasting Glucose 150 H Hemoglobin A1c % 7.4 H Uric Acid 9.2 H Calcium 9.3 AST 27 ALT 24 Triglycerides 193 H Cholesterol 141 LDL Cholesterol, Calc 74 HDL Cholesterol 29 L 25-OH Vitamin D Total 41.9 Ur Specific Terry 1.015 Urine Protein Negative Urine Glucose (UA) Negative Urine Blood Negative Urine Nitrite Negative Ur Leukocyte Esterase Negative Microalb/Creat Ratio 8.2 Coding Level of Care Code Est Pt Level 4 (71811) Diagnoses Type 2 diabetes mellitus without complication, without long-term current use of insulin E11.9 Diabetes mellitus type: type 2 Diabetes mellitus fdc insulin use: without buttermaker helper use Diabetes mellitus complication status: without complication Mixed hyperlipidemia E78.2 Idiopathic gout, unspecified chronicity, unspecified site M10.00 Gout site: unspecified site Gout etiology: idiopathic Chronicity: unspecified Vitamin D deficiency E55.9 Erectile dysfunction, unspecified erectile dysfunction type N52.9 Erectile dysfunction type: unspecified Overweight (BMI 25.0-29.9) E66.3 Additional Codes MEJIA-7 Assessment Billing - MEJIA-7 Assessment Tool: MEJIA-7 Assessment 93727 ([id number]) PHQ-9 - 82966 - PHQ-9 Billing: Yes ([id number]) Assessment & Plan Assessment & Plan (1) Diabetes mellitus: Code(s): E11.9 - Type 2 diabetes mellitus without complications Category: Medical Qualifiers: Diabetes mellitus type: type 2 Diabetes mellitus buttermaker helper insulin use: without buttermaker helper use Diabetes mellitus complication status: without complication Qualified Code(s): E11.9 - Type 2 diabetes mellitus without complications Plan: His HgbA1c was up at 7.4% on his labs done a few days ago (HgbA1c was previously at 7.2% a few months ago and in-office HgbA1c was even better at 6.3% back in December 2023) - goal is < 7.0% He is advised that the recent continuing rise in his HgbA1c is likely tied in to his weight gain from last year as well as the recent oral Prednisone Rx that he's had to take over the past month due to his ongoing right foot/ankle pain from his gout flare ups Reinforced diabetic diet Continue on the same meds - Januvia 100 mg QD in AM and Metformin ER 500 mg 2 tablets (1000 mg) BID for now (2) Mixed hyperlipidemia: Code(s): E78.2 - Mixed hyperlipidemia Category: Medical Plan: Results of his labs done a few days ago reviewed and discussed with patient Reinforced low cholesterol diet Will recheck his labs and fasting lipids in 4 months for follow up (3) Gout: Code(s): M10.9 - Gout, unspecified Category: Medical Qualifiers: Gout site: unspecified site Gout etiology: idiopathic Chronicity: unspecified Qualified Code(s): M10.00 - Idiopathic gout, unspecified site Plan: His serum uric acid level remains elevated at 9.2 mg/dl on his recent labs He has been prescribed at least a couple of courses of oral Prednisone taper over the past month or so for recurrent acute gout flares He continues to experience recurrent pain in his right ankle at present although he states that his right ankle/foot symptoms are now better than they were a couple of weeks ago Reinforced low purine diet - patient and his insist that he has been compliant with his diet lately Continue Indomethacin 25 mg TID PRN for acute gout flares He has been on Allopurinol 300 mg QD but this does not appear to be helping as his serum uric acid level has actually gone up higher than previous on his recent labs Will try switching him over to Uloric 80 mg QD; will D/C Allopurinol He has been referred to rheumatology and he is now scheduled to be seen by rheumatology next month on 11/09/2024 Will have him recheck his serum uric acid level in 4 months for follow up (4) Vitamin D deficiency: Code(s): E55.9 - Vitamin D deficiency, unspecified Category: Medical Plan: Continue Vitamin D3 2000 units QD (5) Erectile dysfunction: Code(s): N52.9 - Male erectile dysfunction, unspecified Category: Medical Qualifiers: Erectile dysfunction type: unspecified Qualified Code(s): N52.9 - Male erectile dysfunction, unspecified Plan: Continue Tadalafil 10 mg QD PRN Follow up with urology as scheduled (6) Overweight (BMI 25.0-29.9): Code(s): E66.3 - Overweight Category: Medical Plan: Reinforced diet/exercise as tolerated/lose weight Plan Follow up in 4 months Orders: Orders Complete Blood Count Auto Diff 4 Months D64.9 - Anemia, unspecified Uric Acid 4 Months M10.9 - Gout, unspecified Erythrocyte Sedimentation Rate 4 Months M79.7 - Fibromyalgia Vitamin D 25-OH Total 4 Months E55.9 - Vitamin D deficiency, unspecified Comprehensive [place]. Panel Fast 4 Months E78.00 - Pure hypercholesterolemia, unspecified Lipid Panel 4 Months E78.00 - Pure hypercholesterolemia, unspecified Hemoglobin A1c 4 Months E11.9 - Type 2 diabetes mellitus without complications Microalbumin, Random (w Creat) 4 Months E11.9 - Type 2 diabetes mellitus without complications TSH reflex Free T4 4 Months E78.00 - Pure hypercholesterolemia, unspecified UA CC w/rflx Micro + Cult 4 Months R30.0 - Dysuria Medications: New febuxostat (Uloric) 80 mg PO DAILY 30 days 30 tabs 3RF Discontinued allopurinol Discontinued Reason: Doctor's Order 300 mg PO DAILY 90 days 90 tabs 1RF M10.9 - Gout, unspecified
== END 2024-10-10 10:43 | disposition home or self-care (01) ==
PROVIDERS: PCP Internal Medicine; Visit Provider Internal Medicine
DX: E11.9 Type 2 diabetes mellitus without complications (principal); E78.2 Mixed hyperlipidemia; M10.00 Idiopathic gout, unspecified site; E55.9 Vitamin D deficiency, unspecified; N52.9 Male erectile dysfunction, unspecified; E66.3 Overweight

== ENCOUNTER → 2024-10-10 09:47 | Outpatient (BNVA) | payer OTHER, SELFPAY | PROVIDERS: PCP Internal Medicine; Visit Provider Internal Medicine | DX: E11.9 Type 2 diabetes mellitus without complications (principal); E78.2 Mixed hyperlipidemia; M10.00 Idiopathic gout, unspecified site; E55.9 Vitamin D deficiency, unspecified; N52.9 Male erectile dysfunction, unspecified; E66.3 Overweight | CPT/HCPCS: 96127; 99212 ==

== ENCOUNTER 2024-10-17 14:59 | Outpatient (AMB) | payer OTHER, SELFPAY ==
[2024-10-17 15:00] VITALS: BP 112/80; PULSE 73; TEMP 36.6; O2SAT 97; BMI 26.1
--- NOTE | 2024-10-17 15:00 | AM.OFFWIN_ITS ---
Intake Vital Signs 3 10/17/24 15:00 Height 5 ft 11 in Weight 187 lb BMI 26.1 BP 112/80 Blood Pressure Location Rt brachial Position Sitting Pulse 73 Pulse Source Pulse Oximeter Temp 97.9 F Temp Source Oral Pulse Oximetry (%) 97 Oxygen Delivery Method Room Air Intake Visit Reasons: EP gout (libyan speaking) Intake Note: pt is here for gout Patient Tobacco Use Status: Never used Tobacco Allergies No Known Allergies Allergy (Verified 10/17/24 15:01) Do you need a note to return to daycare/school/sports/work: No HPI HPI Comments 2 History of Present Illness0 Details 54 y/o male patient who presents to the walk in clinic with c/o Gout Flare up right Ankle/foot. He was last prescribed Indomethacin with good relief. He has an appointment with Rheumatology 11/09/24. Pt asking for something to help with pain. PFSH Medical History Erectile dysfunction Gout Obesity (BMI 30-39.9) Mixed hyperlipidemia Diabetes mellitus Surgical History History of eye surgery Family History Father No problems noted. 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 ) Details: normal capillary refill and tenderness Location: of the dorsal foot and of the medial foot Left lower extremity: normal to inspection Ankle/foot/toe images: 2 1. Right foot/Ankle swelling, warm to touch, swollen tender and red in color. Psych Speech and movement: Normal speech and movement present Office Meds ketorolac 60 mg/2 mL intramuscular solution Performing Provider: Khadra Pleitez NP Performing Location: [facility] [place] [facility] Administered by: Khadra Pleitez NP on 10/17/24 17:19 2 Dose Route Admin Location Dispensed Lot Number Expiration Date [facility] Target [employer] 60 mg IM 2 mL [id number] 03/21/25 01528-693-36 [place] ? Assessment & Plan Assessment & Plan (1) Gout: Code(s): M10.9 - Gout, unspecified Qualifiers: Chronicity: unspecified Gout etiology: idiopathic Gout site: u nspecified site Qualified Code(s): M10.00 - Idiopathic gout, unspecified site Plan: Administered Ketorolac injection in office 60 mg IM - left Deltoid muscle. (2) Right foot pain: Code(s): M79.671 - Pain in right foot Plan: Ordered Indomethacin 50 mg TID. Advised to start taking medication tomorrow. Advised not to take NSAIDs today. Orders: Orders 2 AMB Ketorolac Injection Today M10.00 - Idiopathic gout, unspecified site, M79.671 - Pain in right foot Medications: New 2 ketorolac 60 mg (2 mL) IM ONCE 2 mL 0RF pain (scale score 7-10) M10.00 - Idiopathic gout, unspecified site, M79.671 - Pain in right foot Refilled 2 indomethacin administer with food or milk 50 mg PO TID 30 caps 0RF M10.00 - Idiopathic gout, unspecified site, M79.671 - Pain in right foot Coding Level of Care Code Est Pt Level 4 (99001) Diagnoses Idiopathic gout, unspecified chronicity, unspecified site M10.00 Chronicity: unspecified Gout etiology: idiopathic Gout site: unspecified site Right foot pain M79.671 Time Spent (min) 20
--- OUTSIDE RECORDS SUMMARY | 2024-10-17 19:15 | XMS_ITS | Clinical Summary ---
Author Organization [employer] 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 Name Role Phone Unavailable Primary Care Provider Unavailabl e Social History Tobacco Use Types Packs/Day Years Used Date Smoking Tobacco: Never Assessed Sex and Gender Information Value Date Recorded Sex Assigned at Not on file Gender Identity Not on file Sexual Orientation Not on file Plan of Treatment Health Maintenance Due Date Last Done Comments DTaP,Tdap,and Td Vaccines (1 - Tdap) 01/26/1991 Hepatitis B Vaccines (1 of 3 - 19+ 3-dose series) 01/26/1991 Zoster Vaccines (1 of 2) 01/26/2022 Cholesterol Screening (Lipid Panel) 10/20/2023 Colorectal Cancer Screening: Colonoscopy 10/20/2023 Depression Screening 10/20/2023 HIV Screening 10/20/2023 Hepatitis C Screening 10/20/2023 Social Influencers of Health Screening 10/20/2023 COVID-19 Vaccine ( - 2023-2 5 season) 2024 Influenza Vaccine (#1) 2024 HIB Vaccines Aged Out No longer eligi ble based on patient's age to complete this topic HPV Vaccines Aged Out No longer eligi ble based on patient's age to complete this topic Hepatitis A Vaccines Aged Out No long er eligible based on patient's age to complete this topic IPV Vaccines Aged Out No longer eligi ble based on patient's age to complete this topic MMR Vaccines Aged Out No longer eligi ble based on patient's age to complete this topic Meningococcal ACWY Vaccine Aged Out N o longer eligible based on patient's age to complete this topic Pneumococcal Vaccine: Pediat rics (0 to 5 Years) and At-Risk Patients (6 to 64 Years) Aged Out No longer eligible b ased on patient's age to complete this topic RSV Immunization Patients Un sanjay 20 months Aged Out No longer eligible b ased on patient's age to complete this topic Varicella Vaccines Aged Out No longer eligible based on patient's age to complete this topic
== END 2024-10-17 16:59 | disposition home or self-care (01) ==
PROVIDERS: PCP Internal Medicine; Visit Provider Nurse Practitioner Family
DX: M79.671 Pain in right foot (principal); M10.00 Idiopathic gout, unspecified site

== ENCOUNTER → 2024-10-17 14:59 | Outpatient (BNVA) | payer OTHER, SELFPAY | PROVIDERS: PCP Internal Medicine | DX: M10.00 Idiopathic gout, unspecified site (principal); M79.671 Pain in right foot | CPT/HCPCS: 96372; 99212; J1885 ==

== ENCOUNTER 2024-10-30 12:11 | Emergency (ER) | payer OTHER, SELFPAY ==
[2024-10-30 12:24] VITALS: BP 122/80; PULSE 70; RESP 18; TEMP 36.9; O2SAT 97; BMI 27.2
--- NOTE | 2024-10-30 12:24 | ED_ITS ---
HPI - Extremity Problem General Chief complaint: Extremity Problem Stated complaint: pain in leg Related Data Home Medications ?Medication ?Instructions ?Recorded ?Confirmed lancets 28 gauge (FreeStyle #100 ea 11/28/20 10/10/24 Lancets) Previous Rx's ?Medication ?Instructions ?Recorded blood sugar diagnostic (FreeStyle #100 ea 11/29/21 Lite Strips) blood-glucose meter (FreeStyle #1 ea 01/30/23 Lite Meter kit) tadalafil 20 mg tablet 20 mg PO DAILY sexual activity 90 01/19/24 days #90 tabs cholecalciferol (vitamin D3) 50 50 mcg PO DAILY 90 days #90 caps 03/11/24 mcg (2,000 unit) capsule metformin 500 mg tablet,extended 1,000 mg (2 x 500 mg) PO BID #360 06/12/24 release 24 hr tabs diclofenac potassium 50 mg tablet 50 mg PO DAILY PRN pain 30 days 08/07/24 #30 tabs sitagliptin phosphate 100 mg 100 mg PO DAILY 90 days #90 tabs 10/03/24 tablet (Januvia) febuxostat 80 mg tablet (Uloric) 80 mg PO DAILY 30 days #30 tabs 10/10/24 indomethacin 50 mg capsule 50 mg PO TID #30 caps 10/17/24 Allergies Allergy/AdvReac Type Severity Reaction Status Date / Time No Known Allergies Allergy Verified 10/30/24 12:28 [facility] Past Medical History Medical History Erectile dysfunction Gout Obesity (BMI 30-39.9) Mixed hyperlipidemia Diabetes mellitus Surgical History History of eye surgery Family History Family History Father No problems noted. 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 Has been able to walk with an antalgic gait since then has not been able to wear sneakers aside from sandals. Yesterday he attempted to worsening for. He is not having significant pain to the right ankle in top of the right foot since yesterday. He is taking colchicine, indomethacin, Febuxostat. feels that medications are not helping, has has X-ray in the past and is worried something else is being missed, feels strongly about having CT scan for futher eval. Reevaluation(s) Reevaluation #1: LWCT Time: 19:37 Medical Decision Making Lab Data 10/30/24 13:25 10/30/24 13:25 Labs: Lab Results 10/30/24 Range/Units 13:25 WBC 12.7 H (4.8-10.8) X10*3/uL RBC 5.42 (4.60-5.80) X10*6/uL Hgb 15.7 (14.0-18.0) g/dl Hct 47.0 (42.0-52.0) % MCV 86.7 (80.0-98.0) fL MCH 29.0 (27.0-33.0) pg MCHC 33.4 (31.0-36.0) g/dl RDW 13.2 (11.0-16.0) % Plt Count 370 (160-400) X10*3/uL MPV 9.4 (9.4-12.4) fL Immature Gran % (Auto) 0.2 (0.0-0.4) % Neut % (Auto) 75.5 H (45-73) % Lymph % (Auto) 15.1 L (20-40) % Haakon % (Auto) 7.2 (2-11) % Eos % (Auto) 1.5 (0-4) % Baso % (Auto) 0.5 (0-2) % Lymph # (Auto) 1.9 (1.2-4.9) X10*3/uL Haakon # (Auto) 0.9 (0.1-1.2) X10*3/uL Eos # (Auto) 0.2 (0.0-0.4) X10*3/uL Baso # (Auto) 0.1 (0.0-0.2) X10*3/uL Abs Immat Gran (auto) 0.03 (0.00-0.03) X10*3/uL Absolute Neuts (auto) 9.6 H (2.0-8.3) x10*3/uL Absolute Nucleated RBC 0.000 (0.0-0.012) X10*3/uL Nucleated RBC % (auto) 0.0 (0.0-0.2) /100WBC ESR 5 (0-15) MM/HR Sodium 141 (135-145) mmol/L Potassium 4.4 (3.3-5.1) mmol/L Chloride 106 (96-108) mmol/L Carbon Dioxide 26 (22-29) mmol/L Anion Gap 13 (12-20) BUN 14 (9-16) mg/dL Creatinine 1.03 (0.5-1.4) mg/dL Estim Creat Clear Calc 86.6 Estimated GFR > 60 Random Glucose 134 H (60-115) mg/dL Uric Acid 8.1 H (3.4-7.0) mg/dL Calcium 9.6 (8.4-10.2) mg/dL Total Bilirubin 0.6 (0.0-1.0) mg/dL AST 25 (5-37) U/L ALT 31 (0-40) U/L Alkaline Phosphatase 84 (39-117) U/L C-Reactive Protein 0.23 (< or = 0.50) mg/dL Total Protein 8.2 H (6.5-8.0) g/dL Albumin 4.6 (3.5-5.0) g/dL Discharge Plan Discharge Clinical Impression: Gout Patient Disposition: Left W/O Completing Treatment Prescriptions: No Action (DME) lancets [FreeStyle Lancets] 28 gauge misc See Rx Instructions .ROUTE .MEDSUPPLY Qty: 100 Rx Instructions: As directed (DME) blood-glucose meter [FreeStyle Lite Meter] Kit See Rx Instructions .ROUTE .MEDSUPPLY Qty: 1 0RF Rx Instructions: As directed - Dx: E11.9 -- diabetes cholecalciferol (vitamin D3) 50 mcg (2,000 unit) capsule 50 mcg PO DAILY 90 Days Qty: 90 3RF metformin 500 mg tablet extended release 24 hr 1,000 mg PO BID Qty: 360 1RF diclofenac potassium 50 mg tablet 50 mg PO DAILY PRN (Reason: pain) 30 Days Qty: 30 0RF Rx Instructions: Take with food Januvia 100 mg tablet 100 mg PO DAILY 90 Days Qty: 90 3RF (DME) FreeStyle Lite Strips Strip See Rx Instructions .ROUTE .MEDSUPPLY Qty: 100 5RF Rx Instructions: As directed once a day - Dx: E11.9 -- diabetes tadalafil 20 mg tablet 20 mg PO DAILY 90 Days Qty: 90 1RF febuxostat [Uloric] 80 mg tablet 80 mg PO DAILY 30 Days Qty: 30 3RF indomethacin 50 mg capsule 50 mg PO TID Qty: 30 0RF Rx Instructions: administer with food or milk
[2024-10-30 13:31] LABS: MANUAL DIFF FLAG NO
[2024-10-30 13:33] LABS: Basophils Absolute Auto 0.1 X10*3/uL (0.0-0.2); Basophils Percent Auto 0.5 % (0-2); Eosinophils Absolute Auto 0.2 X10*3/uL (0.0-0.4); Eosinophils Percent Auto 1.5 % (0-4); Hemoglobin 15.7 g/dl (14.0-18.0); Imm Gran Abs Auto 0.03 X10*3/uL (0.00-0.03); Imm Gran Pct Auto 0.2 % (0.0-0.4); Lymphocytes Absolute Auto 1.9 X10*3/uL (1.2-4.9); Lymphocytes Percent Auto 15.1 % (20-40); Mean Corpuscular HGB Conc 33.4 g/dl (31.0-36.0); Mean Corpuscular Volume 86.7 fL (80.0-98.0); Mean Platelet Volume 9.4 fL (9.4-12.4); Monocytes Absolute Auto 0.9 X10*3/uL (0.1-1.2); Monocytes Percent Auto 7.2 % (2-11); Neutrophils Absolute Auto 9.6 x10*3/uL (2.0-8.3); Neutrophils Percent Auto 75.5 % (45-73); Platelet Count 370 X10*3/uL (160-400); Red Blood Count 5.42 X10*6/uL (4.60-5.80); Red Cell Distribution Width 13.2 % (11.0-16.0); White Blood Count 12.7 X10*3/uL (4.8-10.8)
[2024-10-30 13:55] LABS: Alanine Aminotransferase 31 U/L (0-40); Albumin Level 4.6 g/dL (3.5-5.0); Alkaline Phosphatase 84 U/L (39-117); Anion Gap 13 (12-20); Aspartate Amino Transferase 25 U/L (5-37); Bilirubin Total 0.6 mg/dL (0.0-1.0); Blood Urea Nitrogen 14 mg/dL (9-16); C Reactive Protein 0.23 mg/dL (< or = 0.50); Calcium 9.6 mg/dL (8.4-10.2); Carbon Dioxide 26 mmol/L (22-29); Chloride 106 mmol/L (96-108); Creatinine Clr Calc Pharmacy 86.6; Estimated Glomerular Filt Rate > 60; Glucose Random 134 mg/dL (60-115); Potassium 4.4 mmol/L (3.3-5.1); Sodium 141 mmol/L (135-145); Total Protein 8.2 g/dL (6.5-8.0); Uric Acid 8.1 mg/dL (3.4-7.0)
[2024-10-30 14:11] LABS: Erythrocyte Sedimentation Rate 5 MM/HR (0-15)
== END 2024-10-30 20:13 | disposition left against medical advice (07) ==
PROVIDERS: Nurse Practitioner Family; Emergency Provider Emergency Medicine; PCP Internal Medicine
DX: M10.071 Idiopathic gout, right ankle and foot (principal); Z79.899 Other long term (current) drug therapy
CPT/HCPCS: 36415; 80053; 84550; 85025; 85652; 86140; 99281; 99283

== ENCOUNTER 2024-11-01 09:49 | Outpatient (AMB) | payer OTHER, SELFPAY ==
--- NOTE | 2024-11-01 09:54 | A.OFFPC_ITS ---
Vital Signs 11/01/24 10:04 Height 5 ft 11 in BMI Reason not done Patient refused/unable BP 120/82 Blood Pressure Location Lt brachial Position Sitting Pulse 77 Pulse Source Pulse Oximeter Pulse Oximetry (%) 97 Oxygen Delivery Method Room Air Intake Visit Reasons: RT foot gout Assistant City Attorney Required: No Accompanied by: Self / Same As Patient Allergies No Known Allergies Allergy (Verified 11/01/24 10:15) Medication List - Last Reconciled 11/01/24 by CHATA Hathaway blood sugar diagnostic (FreeStyle Lite Strips) As directed once a day - Dx: E11.9 -- diabetes blood-glucose meter (FreeStyle Lite Meter kit) As directed - Dx: E11.9 -- diabetes cholecalciferol (vitamin D3) 50 mcg PO DAILY 90 days diclofenac potassium 50 mg PO DAILY PRN 30 days febuxostat (Uloric) 80 mg PO DAILY 30 days indomethacin 50 mg PO TID lancets (FreeStyle Lancets) As directed metformin ER 1,000 mg (2 x 500 mg) PO BID sitagliptin phosphate (Januvia) 100 mg PO DAILY 90 days tadalafil 20 mg PO DAILY 90 days Tobacco use date assessed: 11/01/24 Dental Screening Dental Screen Date: 11/01/24 Did you have a dental visit in the last 12 months?: Yes Did you have a dental problem in the last 6 months where you did not have access to dental care?: No Was dental information given to patient?: Patient has dentist HPI RT foot gout HPI Details The patient is 54 year old male with significant past medical history o f DM, HLD, and chronic refractory gout Patient the patient of Dr. Ngo was last seen in office on 10/10/24-4 chronic condition. The patient was also seen in a walk-in clinic on 10/10/2024 for gout flare up The patient has a schedule with rheumatology on 11/09-d Patient reports that he went to the hospital on Thursday for his right foot pain. Blood work but did not treat his pain The patient would like a CT of foot. Think that x-ray might be missing something The patient uric acid continue severe elevated, even though it improved some since checked lastly Patient was started on Febuxostat on 10/10/2024, discussed with patient that his uric acid is still elevated but has come down some Potentially, he needs to be on this medication for a longer p.r.n. to get the full effect The patient is complaining of extreme pain. We will put the patient on prednisone to buy him some time until he is rheumatology appointment [facility] Medical History Erectile dysfunction Gout Obesity (BMI 30-39.9) Mixed hyperlipidemia Diabetes mellitus Surgical History History of eye surgery Family History Father No problems noted. 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 1. Little interest or pleasure in doing things: not at all 2. Feeling down, depressed, or hopeless: not at all 3. Trouble falling or staying asleep, or sleeping too much: not at all 4. Feeling tired or having little energy: not at all 5. Poor appetite or overeating: not at all 6. Feeling bad about yourself - or that you are a failure or have let yourself or your family down: not at all 7. Trouble concentrating on things, such as reading the newspaper or watching television: not at all 8. Moving or speaking so slowly that other people could have noticed. Or the opposite - being so fidgety or restless that you have been moving around a lot more than usual: not at all 9. Thoughts that you would be better off or of hurting yourself in some way: not at all Total score: 0 Depression Screening Interpretation: Negative Depression Screening Done: Yes 91423 - PHQ-9 Billing: Yes Source: Developed by Drs. Thuan Merchant, Shana BAgustín Rocha and colleagues, with an educational yamil from [email or web address]. Thrive Questionnaire Date Thrive assessed: 11/01/24 I am a: Patient What is your living situation today?: I have a steady place to live Within the past 12 months, did the food you bought not last and you didn't have the money to get more?: Never true Within the past 12 months, did you worry whether your food would run out before you got money to buy more?: Never true Do you have trouble paying for medicines?: No Do you have trouble getting transportation to medical appointments?: No Do you have trouble paying your heating and electricity bill?: No Do you have trouble taking care of your child, family member or friend?: No Do you have trouble with day-to-day activities such as bathing, preparing meals, shopping, managing finances, etc.?: No Are you currently unemployed and looking for a job?: No Are you interested in more education?: No Please select the resources that you would like help with: None Currently or been in a relationship where the following occur: No concerns reported THRIVE Score: 0 AUDIT C Alcohol Use Questionnaire (AUDIT-C) 1. How often do you have a drink containing alcohol?: Never 3. How often do you have six or more drinks on one occasion?: Never Total Score: 0 Score Reviewed/Action Taken: Yes MEJIA-7 AMB Questionnaire MEJIA-7 Date MEJIA - 7 assessed: 11/01/24 Feeling nervous, anxious, or on edge: 0 = Not at all Not being able to stop or control worryin = Not at all Worrying too much about different things: 0 = Not at all Trouble relaxin = Not at all Being so restless that it is hard to sit still: 0 = Not at all Becoming easily annoyed or irritable: 0 = Not at all Feeling afraid as if something awful might happen: 0 = Not at all Total MEJIA-7 score (0-4 normal; 5-9 mild; 10-14 moderate; 15-21 severe): 0 Source: Developed by Drs. Thuan Merchant, Agustín Valenzuela and colleagues, with an educational yamil from [email or web address]. MEJIA-7 Assessment Billing MEJIA-7 Assessment Tool: MEJIA-7 Assessment 83603 Review of Systems Const Details: Denies chills, Denies fatigue, Denies fever(s), Denies headache(s) and Denies weakness HEENT Denies change in vision, Denies dizziness, Denies headache(s), Denies hearing loss, Denies nasal congestion, Denies sinus pain, Denies sinus pressure and Denies sore throat Card Denies chest pain, Denies lightheadedness, Denies dyspnea and Denies other (palpitations) Resp Denies cough, Denies dyspnea and Denies wheezing GI Denies abdominal pain, Denies melena, Denies hematochezia, Denies change in bowel habits, Denies dyspepsia and Denies nausea Denies hematuria and Denies dysuria Musc Denies abnormal gait, Denies myalgias, Denies arthralgias, Denies numbness and Denies tingling right foot/ankle swelling and pain (ongoing gout flares) Skin/Breast Denies rash, Denies unusual bruising and Denies wounds Neuro Denies abnormal gait, Denies dizziness, Denies headache(s), Denies memory loss, Denies numbness, Denies Sensory deficit (Neuro), Denies tingling and Denies weakness Psych Denies anxiety, Denies depression and Denies memory loss Endo Denies cold intolerance, Denies fatigue, Denies heat intolerance, Denies polydipsia and Denies polyuria Schuyler/Lymph Denies easy bleeding and Denies easy bruising Aller/Immun Denies wheezing Physical exam (Primary Care) Vital Signs: Last Vital Signs Pulse 77 11/01/24 10:04 BP 120/82 11/01/24 10:04 Pulse Ox 97 11/01/24 10:04 Oxygen Delivery Method Room Air 11/01/24 10:04 Tobacco/Smoking Status: Tobacco use Status Tobacco use date assessed 11/01/24 11/01/24 10:07 Patient Tobacco Use Status Never used Tobacco 11/01/24 09:55 e-Cigarette/Vaping Use Never Used 11/01/24 09:55 PHQ-9: PHQ-9 Score PHQ-9: Total score 0 11/01/24 10:07 Depression Screening Interpretation: Negative Thrive Assessment: Date of Thrive Assessment Date Thrive assessed 11/01/24 11/01/24 10:07 Currently or been in a relationship where the following occur: No concerns reported Const Other: General: no acute distress, well developed, alert and awake Nutritional Appearance: well nourished Orientation/consciousness: patient oriented x3 HENMT Head: Yes normocephalic and Yes atraumatic Ears: hearing grossly normal bilaterally and TM's normal bilaterally General nose exam: Normal external nose present and Normal nares present Mouth: Normal oral and palatal mucosa present and moist mucous membranes Eyes Pupils: Equal, round and reactive pupils present and Pupil accommodation reflex normal EOM: EOMs intact bilaterally Neck Neck: Yes normal visual inspection, Yes no lymphadenopathy and Yes trachea midline Thyroid: Thyroid normal Carotids: no bruits Lymphatic: no lymphadenopathy noted Resp Effort & Inspection: normal respiratory effort Auscultation: clear to auscultation bilaterally Cardio Rate: regular rate Rhythm: regular rhythm Heart sounds: S1 normal heart sound present, S2 normal heart sound present, no gallops, no murmurs and no rubs no calp pain or edema. Capillary refill less than 3 seconds bilaterally GI Palpation (GI): No Abdominal aortic bruit present, Soft to palpation, nontender, No hepatosplenomegaly present and No Rebound tenderness present Auscultation: normal bowel sounds General: Yes no CVA tenderness Back/Spine/Pelvis Back: no CVA tenderness Cervical Spine: cervical ROM normal and No Cervical spine tenderness Thoracic/Lumbar Spine: thoraco-lumbar ROM normal, No pain with thoraco-lumbar ROM, No thoracic spinal tenderness and No lumbar spinal tenderness other: right foot/ankle edema, pain to palpation. Refusing ROM due to pain, +cms in toes Results Reviewed Results Reviewed: Laboratory Tests 10/30/24 13:25 WBC 12.7 H RBC 5.42 Hgb 15.7 Hct 47.0 MCV 86.7 RDW 13.2 Plt Count 370 Sodium 141 Potassium 4.4 Chloride 106 BUN 14 Creatinine 1.03 Random Glucose 134 H Uric Acid 8.1 H AST 25 ALT 31 Coding Level of Care Code Est Pt Level 4 (54828) Diagnoses Right foot pain M79.671 Idiopathic gout, unspecified chronicity, unspecified site M10.00 Gout site: unspecified site Gout etiology: idiopathic Chronicity: unspecified Additional Codes MEJIA-7 Assessment Billing - MEJIA-7 Assessment Tool: MEJIA-7 Assessment 40607 ([id number]) PHQ-9 - 48740 - PHQ-9 Billing: Yes ([id number]) Time Spent (min) 36 Assessment & Plan Assessment & Plan (1) Right foot pain: Code(s): M79.671 - Pain in right foot Category: Medical Plan: Continue indomethacin 50 mg TID, febuxostat 80 mg daily prednisone tapered ordered The patient has an upcoming appt with rheumatology on 11/09/2024 Patient uric acid continues to be elevated. Levels did come down some after the start of febuxostat 80 mg. Discussed with patient that he might just need more time for this medication to work However, Rheum might be able to give him something stronger (2) Gout: Code(s): M10.9 - Gout, unspecified Category: Medical Qualifiers: Gout site: unspecified site Gout etiology: idiopathic Chronicity: unspecified Qualified Code(s): M10.00 - Idiopathic gout, unspecified site Plan: Same as above Orders: Orders CT ankle RT wo IV con Today M25.471 - Effusion, right ankle, M25.571 - Pain in right ankle and joints of right foot, M79.671 - Pain in right foot, M79.89 - Other specified soft tissue disorders Medications: New prednisone see taper instructions take 4 tabs x2 days, take 3 tabs x2 days, take 2 tabs x2 days, take 1 tab x2 days =20 tabs for 8 days 10 mg PO DIRECTED 20 tabs 0RF
[2024-11-01 10:04] VITALS: BP 120/82; PULSE 77; O2SAT 97
--- OUTSIDE RECORDS SUMMARY | 2024-11-01 10:58 | XMS_ITS | Clinical Summary ---
Author Organization [facility] ity Address [address] [place] [address] Care Team Providers Care Shank Rander Name Role Phone Unavailable Primary Care Provider Unavailabl e Social History Tobacco Use Types Packs/Day Years Used Date Smoking Tobacco: Never Assessed Sex and Gender Information Value Date Recorded Sex Assigned at Not on file Legal Sex Male 7:34 PM EST Gender Identity Not on file Sexual Orientation Not on file Plan of Treatment Health Maintenance Due Date Last Done Comments DTaP,Tdap,and Td Vaccines (1 - Tdap) 01/26/1979 Hepatitis B Vaccines (1 of 3 - 19+ 3-dose series) 01/26/1991 Pneumococcal Vaccine: 50+ Ye ars (1 of 1 - PCV) 01/26/2022 Zoster Vaccines (1 of 2) 01/26/2022 Cholesterol [...] patient's age to complete this topic Meningococcal B Vacine Aged Out No lo nger eligible based on patient's age to complete [...]
== END 2024-11-01 10:31 | disposition home or self-care (01) ==
PROVIDERS: PCP Internal Medicine
DX: M79.671 Pain in right foot (principal); M10.00 Idiopathic gout, unspecified site

== ENCOUNTER → 2024-11-01 09:49 | Outpatient (BNVA) | payer OTHER, SELFPAY | PROVIDERS: PCP Internal Medicine | DX: M79.671 Pain in right foot (principal); M10.00 Idiopathic gout, unspecified site | CPT/HCPCS: 96127; 99212 ==

== ENCOUNTER 2024-11-09 07:35 | Outpatient (AMB) | payer OTHER, SELFPAY ==
--- OUTSIDE RECORDS SUMMARY | 2024-11-09 07:37 | XMS_ITS | Clinical Summary ---
Author Organization [facility] ity Address [address] [place] [address] Care Team Providers Care Park Worker Name Role Phone Unavailable Primary Care Provider [...]
--- NOTE | 2024-11-09 07:42 | MHC.OFFVIS ---
Vital Signs 11/09/24 07:59 Height 5 ft 11 in Weight 192 lb 7.417 oz BMI 26.8 BP 100/70 Blood Pressure Location Lt brachial Position Sitting Respiration 18 Pulse 74 Pulse Source Pulse Oximeter Pulse Oximetry (%) 97 Oxygen Delivery Method Room Air Intake Visit Reasons: Gout Intake Note: Patient presents for Gout. Im feeling severe pain on RT foot and ankle is very swollen. NWB on it. Using crutches. I was diagnose with Gout since 2010. Taking Prednisone, Febuxostat and Indomethacin and these medications are not working. Allergies No Known Allergies Allergy (Verified 11/09/24 07:57) Medication List - Last Reconciled 11/09/24 by Jennifer Sams MD blood sugar diagnostic (FreeStyle Lite Strips) As directed once a day - Dx: E11.9 -- diabetes blood-glucose meter (FreeStyle Lite Meter kit) As directed - Dx: E11.9 -- diabetes cholecalciferol (vitamin D3) 50 mcg PO DAILY 90 days diclofenac potassium 50 mg PO DAILY PRN 30 days febuxostat (Uloric) 80 mg PO DAILY 30 days indomethacin 50 mg PO TID lancets (FreeStyle Lancets) As directed metformin ER 1,000 mg (2 x 500 mg) PO BID prednisone 10 mg PO DIRECTED sitagliptin phosphate (Januvia) 100 mg PO DAILY 90 days tadalafil 20 mg PO DAILY 90 days HPI Comments Details: Patient is a 54-year-old male with diabetes, hypertension, hyperlipidemia and non crystal proven non tophaceous gout here today to establish care Patient has been having intermittent gout flares with a past 13 years. His gout is currently managed by his PCP. Originally he was started on allopurinol 300 mg but this was not up titrated and his uric acid remain elevated and so he was subsequently switched to febuxostat. He denies any adverse reactions while being on allopurinol Currently he has been having a flare of his gout that started in August. Initially started with right 1st MTP pain and swelling and this now progressed to involve the entire foot including the ankle. Was given a short taper but this did not improve his symptoms this time. Of note he has had flares involving his knees, and the opposite foot in the past. Risk Factors for Gout HTN Denies: Family history of gout, CKD, EtOH use and use of medications: low-dose ASA, diuretics, cyclosporine [facility] Medical History (Updated 11/09/24 @ 12:23 by Jennifer Sams MD) Encounter for monitoring allopurinol therapy Erectile dysfunction Gout Obesity (BMI 30-39.9) Mixed hyperlipidemia Diabetes mellitus Surgical History History of eye surgery Family History Father No problems noted. 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 Cognitive needs: No Hearing needs: No Vision needs: No Review of Systems Const Details: Review of Systems Constitutional: Denies fever, chills, weight loss ENT: Denies vision changes, eye pain or eye redness, dental caries, dry mouth GI: Denies nausea, vomiting, diarrhea, abdominal pain, change in BM Pulm: Denies SOB, MIGUEL, hemoptysis, wheezing Cards: Denies chest pain, palpitations Skin: Denies Raynaud's, rash, nail changes, photosensitivity, PROPERTY CONDITION ASSESSOR: Denies headaches, weakness, paresthesias, recurrent falls MSK: as per HPI All other systems reviewed and are unremarkable except noted above Physical Exam Vital signs reviewed Physical Examination CONSTITUITIONAL Patient alert and cooperative. Well appearing and in no apparent painful distress HEENT Conjunctiva and sclera clear. ?Pupils equal round and reactive to light. ?No lymphadenopathy. ? CHEST/RESPIRATORY SYSTEM Normal respiratory effort and able to speak in complete sentences. ?Clear to auscultation bilaterally. ?No crackles, rales, rhonchi, wheezes heard. CARDIAC SYSTEM Regular rate and rhythm. ?S1 and S2 heard no murmurs. 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 No deformities noted. ?No synovitis noted to the MCPs, PIPs or DIPs. ?No tenderness to palpation of these joints. Wrists: ?Full range of motion at the wrists without pain. ?No tenderness to palpation or synovitis noted to the wrists. Elbows: Full range of motion without pain. No tenderness, weakness, swelling, increased warmth or erythema. Shoulders: Full range of motion without pain. No tenderness, weakness, swelling, increased warmth or erythema. Hips: Full range of motion without pain. Hip bursa: No tenderness to palpation Knees: ?Full range of motion. ?No tenderness, swelling, increased warmth or erythema.?No effusion or crepitations Ankles: Full range of motion. ?No tenderness, swelling, increased warmth or erythema.? Feet: ?right foot swollen and warm to touch with TTP of all the MTPs Tender points:?No tenderness to palpation of the bilateral trapezius, supraspinatus, greater trochanters, anterior costochondral junctions, bilateral gluteal areas, bilateral suboccipital muscle insertions SKIN Skin intact without rashes. No tophi noted Results Reviewed Results Reviewed: Laboratory Tests 10/07/24 10/30/24 07:51 13:25 WBC 12.7 H RBC 5.42 Hgb 15.7 Hct 47.0 Plt Count 370 Sodium 141 Potassium 4.4 Chloride 106 Carbon Dioxide 26 BUN 14 Creatinine 1.03 Uric Acid 9.2 H 8.1 H Total Bilirubin 0.6 AST 25 ALT 31 Alkaline Phosphatase 84 C-Reactive Protein 0.23 Total Protein 8.2 H Albumin 4.6 Assessment & Plan Assessment & Plan (1) Gout: Code(s): M10.9 - Gout, unspecified Category: Medical Qualifiers: Gout site: unspecified site Gout etiology: idiopathic Chronicity: unspecified Qualified Code(s): M10.00 - Idiopathic gout, unspecified site Plan: #Gout #Gout Flare Patient is a 54 y.o. male with non crystal proven non tophaceous gout here today with a prolonged gout flare. Ideally would like to give the patient Anakinra for 5 days but given the likely insurance restrictions I will do a prolonged steroid taper. His blood sugars will need to be monitored at home. A1C is in the 7s so not horrible. With respect to his UA, it is currently not at goal. I would prefer to switch patient back to allopurinol since there was no contraindication and I will uptitrate him to 600mg (he was on 300mg for a while). UA goal 5-6 Plan - Prednisone 40 mg for 10 days then 30 mg for 10 days then 20 mg for 10 days then 10 mg for 10 days then 5 mg for 10 days - Allopurinol 600mg daily - Paperwork for 's FMLA filled out - RTC 4 weeks - Labs before visit: CBC, CMP, ESR, CRP, UA (2) Encounter for monitoring allopurinol therapy: Code(s): Z51.81 - Encounter for therapeutic drug level monitoring; Z79.899 - Other [facility] (current[facility] drug therapy Category: Medical Plan: #Long-term Current Use of Allopurinol Risks and benefits of allopurinol discussed with patient Benefits include decreased gout flares, remission of gout and reduction of tophi Risks include allopurinol hypersensitivity syndrome which is a severe cutaneous adverse reaction associated with allopurinol use particularly in patients who are HLA [id number] positive, increased transaminases, GI upset including diarrhea, nausea and vomiting, and other dermatologic manifestations. Plan I spent 70 minutes reviewing the record and labs, taking a history, examining the patient, discussing the treatment plan, filling out forms for patient and his and documenting in the medical record Orders: Orders Complete Blood Count Auto Diff 4 Weeks M10.00 - Idiopathic gout, unspecified site C Reactive Protein 4 Weeks M10.00 - Idiopathic gout, unspecified site Comprehensive Met. Panel 4 Weeks M10.00 - Idiopathic gout, unspecified site Erythrocyte Sedimentation Rate 4 Weeks M10.00 - Idiopathic gout, unspecified site Uric Acid 4 Weeks M10.00 - Idiopathic gout, unspecified site Medications: New allopurinol 600 mg (2 x 300 mg) PO DAILY 180 tabs 1RF M10.00 - Idiopathic gout, unspecified site, M10.9 - Gout, unspecified prednisone take 4 tablets for 10 days then 3 tablets for 10 days then 2 tablets for 10 days then 1 tablet for 10 days then 0.5 tablet for 10 days 10 mg PO DIRECTED 105 tabs 0RF M10.9 - Gout, unspecified Discontinued febuxostat (Uloric) Discontinued Reason: Doctor's Order 80 mg PO DAILY 30 days 30 tabs 3RF prednisone see taper instructions take 4 tabs x2 days, take 3 tabs x2 days, take 2 tabs x2 days, take 1 tab x2 days =20 tabs for 8 days Discontinued Reason: Doctor's Order 10 mg PO DIRECTED 20 tabs 0RF Coding Level of Care Code New Pt Level 5 (40272) Complex EM visit Add On G2211 Diagnoses Idiopathic gout, unspecified chronicity, unspecified site M10.00 Gout site: unspecified site Gout etiology: idiopathic Chronicity: unspecified Encounter for monitoring allopurinol therapy Z51.81; Z79.899
[2024-11-09 07:59] VITALS: BP 100/70; PULSE 74; RESP 18; O2SAT 97; BMI 26.8
== END 2024-11-09 08:37 | disposition home or self-care (01) ==
PROVIDERS: PCP Internal Medicine; Visit Provider Student in an Organized Health Care Education/Training Program
DX: M10.071 Idiopathic gout, right ankle and foot (principal); Z51.81 Encounter for therapeutic drug level monitoring; Z79.899 Other long term (current) drug therapy
CPT/HCPCS: 99205; G2211

== ENCOUNTER → 2024-11-09 07:35 | Outpatient (BNVA) | payer OTHER, SELFPAY | PROVIDERS: PCP Internal Medicine; Visit Provider Student in an Organized Health Care Education/Training Program | DX: M10.00 Idiopathic gout, unspecified site (principal); Z51.81 Encounter for therapeutic drug level monitoring; Z79.899 Other long term (current) drug therapy | CPT/HCPCS: 99202 ==

== ENCOUNTER 2024-12-12 06:31 | Outpatient (REF) | payer OTHER, SELFPAY ==
--- NOTE | ~2024-12-12 | CT_ITS ---
CLINICAL HISTORY: M79.671 - Pain in right foot CT scan of the right ankle without contrast. Comparison: Plain films of the right foot dated 09/19/2024. Findings: There is relatively mild soft tissue edema at the ankle. This is more evident laterally. The soft tissues are otherwise unremarkable. There are no acute bony abnormalities. There are posterior and plantar calcaneal spurs. There is a tibiotalar joint effusion. The joint spaces are preserved. Impression: 1.Mild soft tissue edema at the ankle. 2.Tibiotalar joint effusion. 3.Calcaneal spurs. This document has been electronically signed by: Karthik Azul MD on 12/12/2024 12:22:35
[2024-12-12 07:00] LABS: MANUAL DIFF FLAG NO
[2024-12-12 07:28] LABS: Basophils Absolute Auto 0.1 X10*3/uL (0.0-0.2); Basophils Percent Auto 1.3 % (0-2); Eosinophils Absolute Auto 0.6 X10*3/uL (0.0-0.4); Eosinophils Percent Auto 6.9 % (0-4); Hematocrit 46.2 % (42.0-52.0); Hemoglobin 14.8 g/dl (14.0-18.0); Imm Gran Abs Auto 0.08 X10*3/uL (0.00-0.03); Lymphocytes Absolute Auto 2.1 X10*3/uL (1.2-4.9); Lymphocytes Percent Auto 25.1 % (20-40); Mean Corpuscular Hemoglobin 28.5 pg (27.0-33.0); Mean Platelet Volume 9.4 fL (9.4-12.4); Monocytes Absolute Auto 0.6 X10*3/uL (0.1-1.2); Monocytes Percent Auto 7.8 % (2-11); Neutrophils Absolute Auto 4.7 x10*3/uL (2.0-8.3); Neutrophils Percent Auto 57.9 % (45-73); Platelet Count 414 X10*3/uL (160-400); Red Blood Count 5.19 X10*6/uL (4.60-5.80); Red Cell Distribution Width 13.3 % (11.0-16.0); White Blood Count 8.2 X10*3/uL (4.8-10.8)
[2024-12-12 07:34] LABS: Alanine Aminotransferase 22 U/L (0-40); Alkaline Phosphatase 85 U/L (39-117); Anion Gap 14 (12-20); Aspartate Amino Transferase 18 U/L (5-37); Bilirubin Total 0.3 mg/dL (0.0-1.0); Blood Urea Nitrogen 15 mg/dL (9-16); C Reactive Protein 0.23 mg/dL (< or = 0.50); Calcium 8.8 mg/dL (8.4-10.2); Carbon Dioxide 26 mmol/L (22-29); Chloride 108 mmol/L (96-108); Estimated Glomerular Filt Rate > 60; Glucose Random 213 mg/dL (60-115); Potassium 4.5 mmol/L (3.3-5.1); Sodium 143 mmol/L (135-145); Total Protein 7.5 g/dL (6.5-8.0); Uric Acid 8.5 mg/dL (3.4-7.0)
[2024-12-12 08:08] LABS: Erythrocyte Sedimentation Rate 12 MM/HR (0-15)
== END 2024-12-12 06:32 | disposition home or self-care (01) ==
LOC: HO.CT 06:31
PROVIDERS: Absent Provider Student in an Organized Health Care Education/Training Program; PCP Internal Medicine
DX: M10.00 Idiopathic gout, unspecified site (principal); M79.671 Pain in right foot; M25.571 Pain in right ankle and joints of right foot; M79.89 Other specified soft tissue disorders; M25.471 Effusion, right ankle
CPT/HCPCS: 36415; 73700; 80053; 84550; 85025; 85652; 86140

== ENCOUNTER → 2024-12-12 07:00 | Outpatient (BNV) | payer OTHER, SELFPAY | PROVIDERS: Absent Provider Student in an Organized Health Care Education/Training Program; PCP Internal Medicine; Visit Provider Radiology Diagnostic Radiology | DX: M79.671 Pain in right foot (principal) | CPT/HCPCS: 73700 ==

== ENCOUNTER 2024-12-13 10:50 | Outpatient (AMB) | payer OTHER, SELFPAY ==
[2024-12-13 10:52] VITALS: BP 116/66; PULSE 66; O2SAT 99; BMI 26.7
--- NOTE | 2024-12-13 10:52 | A.OFFVIS_ITS ---
Vital Signs 12/13/24 10:52 Height 5 ft 11 in Weight 191 lb 5.78 oz BMI 26.7 BP 116/66 Blood Pressure Location Lt brachial Position Sitting Pulse 66 Pulse Source Pulse Oximeter Pulse Oximetry (%) 99 Oxygen Delivery Method Room Air Intake Visit Reasons: Gout Intake Note: Patient last seen by Doctor Jennifer Sams on 11/09/24. Presents today for Gout follow up and test results. Patient states he has had pain for months, appears limping today, and is in a lot of pain. CT scan is in chart for review. Allergies No Known Allergies Allergy (Verified 12/13/24 10:57) Medication List - Last Reconciled 12/13/24 by Jennifer Sams MD allopurinol 800 mg (4 x 200 mg) PO DAILY 90 days blood sugar diagnostic (FreeStyle Lite Strips) As directed once a day - Dx: E11.9 -- diabetes blood-glucose meter (FreeStyle Lite Meter kit) As directed - Dx: E11.9 -- diabetes cholecalciferol (vitamin D3) 50 mcg PO DAILY 90 days diclofenac potassium 50 mg PO DAILY PRN 30 days indomethacin 50 mg PO TID lancets (FreeStyle Lancets) As directed metformin ER 1,000 mg (2 x 500 mg) PO BID sitagliptin phosphate (Januvia) 100 mg PO DAILY 90 days tadalafil 20 mg PO DAILY 90 days HPI Comments Details: Patient is a 54-year-old male with diabetes, hypertension, hyperlipidemia and non crystal proven non tophaceous gout here today for follow up Interval History: Patient last seen 11/09/2024 with me. 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 He was started on prednisone taper and allopurinol for gout flare. Patient returns today noting improvement in his symptoms however still has persistent right ankle pain that makes it difficult for him to walk and put on shoes Rheumatologic History: ddx 2012 Allopurinol 11/2024 Initial history by me: Patient has been having intermittent gout flares with a past 13 years. His gout is currently managed by his PCP. Originally he was started on allopurinol 300 mg but this was not up titrated and his uric acid remain elevated and so he was subsequently switched to febuxostat. He denies any adverse reactions while being on allopurinol Currently he has been having a flare of his gout that started in August. Initially started with right 1st MTP pain and swelling and this now progressed to involve the entire foot including the ankle. Was given a short taper but this did not improve his symptoms this time. Of note he has had flares involving his knees, and the opposite foot in the past. Risk Factors for Gout HTN Denies: Family history of gout, CKD, EtOH use and use of medications: low-dose ASA, diuretics, cyclosporine Current Rheumatology Medication(s): Allopurinol 600mg daily Prednisone 10mg (on a taper) [facility] Medical History (Updated 11/09/24 @ 12:23 by Jennifer Sams MD) Encounter for monitoring allopurinol therapy Erectile dysfunction Gout Obesity (BMI 30-39.9) Mixed hyperlipidemia Diabetes mellitus Surgical History History of eye surgery Family History Father No problems noted. 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 Cognitive needs: No Hearing needs: No Vision needs: No Review of Systems Const Details: Review of Systems Constitutional: Denies fever, chills, weight loss ENT: Denies vision changes, eye pain or eye redness, dental caries, dry mouth GI: Denies nausea, vomiting, diarrhea, abdominal pain, change in BM Pulm: Denies SOB, MIGUEL, hemoptysis, wheezing Cards: Denies chest pain, palpitations Skin: Denies Raynaud's, rash, nail changes, photosensitivity, 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 Well appearing and in no apparent painful distress HEENT Conjunctiva and sclera clear. ?Pupils equal round and reactive to light. ?No lymphadenopathy. ? CHEST/RESPIRATORY SYSTEM Normal respiratory effort and able to speak in complete sentences. ?Clear to auscultation bilaterally. ?No crackles, rales, rhonchi, wheezes heard. CARDIAC SYSTEM Regular rate and rhythm. ?S1 and S2 heard no murmurs. 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 No deformities noted. ?No synovitis noted to the MCPs, PIPs or DIPs. ?No tenderness to palpation of these joints. Wrists: ?Full range of motion at the wrists without pain. ?No tenderness to palpation or synovitis noted to the wrists. Elbows: Full range of motion without pain. No tenderness, weakness, swelling, increased warmth or erythema. Shoulders: Full range of motion without pain. No tenderness, weakness, swelling, increased warmth or erythema. Hips: Full range of motion without pain. Hip bursa: No tenderness to palpation Knees: ?Full range of motion. ?No tenderness, swelling, increased warmth or erythema.?No effusion or crepitations Ankles: Right ankle with swelling and TTP Feet: ?right foot swollen and warm to touch with TTP of all the MTPs Tender points:?No tenderness to palpation of the bilateral trapezius, supraspinatus, greater trochanters, anterior costochondral junctions, bilateral gluteal areas, bilateral suboccipital muscle insertions SKIN Skin intact without rashes. No tophi noted Results Reviewed Results Reviewed: Laboratory Tests 10/30/24 12/12/24 13:25 06:56 WBC 8.2 RBC 5.19 Hgb 14.8 Hct 46.2 Plt Count 414 H ESR 12 Sodium 143 Potassium 4.5 Chloride 108 Carbon Dioxide 26 BUN 15 Creatinine 1.04 Uric Acid 8.1 H 8.5 H Calcium 9.6 8.8 D Total Bilirubin 0.3 AST 18 ALT 22 Alkaline Phosphatase 85 C-Reactive Protein 0.23 0.23 Total Protein 7[address] Right Ankle 11/2024 Findings: There is relatively mild soft tissue edema at the ankle. This is more evident laterally. The soft tissues are otherwise unremarkable. There are no acute bony abnormalities. There are posterior and plantar calcaneal spurs. There is a tibiotalar joint effusion. The joint spaces are preserved. Impression: 1.Mild soft tissue edema at the ankle. 2.Tibiotalar joint effusion. 3.Calcaneal spurs. Assessment & Plan Assessment & Plan (1) Gout: Code(s): M10.9 - Gout, unspecified Category: Medical Qualifiers: Chronicity: unspecified Gout etiology: idiopathic Gout site: unspecified site Qualified Code(s): M10.00 - Idiopathic gout, unspecified site Plan: #Gout Patient is a 54-year-old male with non crystal proven gout here today for follow up. Patient is still in a flare as evidenced by swelling to his right ankle with tenderness to palpation and his history of not being able to walk on the ankle. His uric acid did not improve with the increase in allopurinol. We will increase allopurinol to 800 mg complete the prednisone taper and add colchicine. We will schedule an ultrasound of the ankle with injection. Plan - Allopurinol 800mg daily - Colchicine 0.6mg - Complete prednisone taper and start prednisone 5mg daily - Completed FMLA paperwork - US guided injection of right ankle - RTC 2 months - Labs before visit: CBC, CMP, ESR, CRP, UA (2) Encounter for monitoring allopurinol therapy: Code(s): Z51.81 - Encounter for therapeutic drug level monitoring; Z79.899 - Other [facility] (current) drug therapy Category: Medical Plan: #Long-term Current Use of Allopurinol Risks and benefits of allopurinol discussed with patient Benefits include decreased gout flares, remission of gout and reduction of tophi Risks include allopurinol hypersensitivity syndrome which is a severe cutaneous adverse reaction associated with allopurinol use particularly in patients who are HLA [id number] positive, increased transaminases, GI upset including diarrhea, n ausea and vomiting, and other dermatologic manifestations. (3) On colchicine therapy: Code(s): Z79.899 - Other [facility] (current) drug therapy Plan: #Long-term use of colchicine Risks and benefits of long-term colchicine for the management of this patient's gout discussed with patient. Benefits include reduced occurrence of flares while we titrate and regulate his uric acid on allopurinol and other uric acid lowering medications. ? Risks include worsening myalgias especially if on statins and GI upset including diarrhea Plan I spent 42 minutes reviewing the record and labs, taking a history, examining the patient, discussing the treatment plan, ordering diagnostic work up, completing [facility] paperwork and documenting in the medical record Orders: Orders C Reactive Protein 2 Months M10.00 - Idiopathic gout, unspecified site, Z51.81 - Encounter for therapeutic drug level monitoring, Z79.899 - Other shelter (current) drug therapy Complete Blood Count Auto Diff 2 Months M10.00 - Idiopathic gout, unspecified site, Z51.81 - Encounter for therapeutic drug level monitoring, Z79.899 - Other shelter (current) drug therapy Comprehensive Met. Panel 2 Months M10.00 - Idiopathic gout, unspecified site, Z51.81 - Encounter for therapeutic drug level monitoring, Z79.899 - Other [facility] (current) drug therapy Erythrocyte Sedimentation Rate 2 Months M10.00 - Idiopathic gout, unspecified site, Z51.81 - Encounter for therapeutic drug level monitoring, Z79.899 - Other intermediate [facility] (current) drug therapy Uric Acid 2 Months M10.00 - Idiopathic gout, unspecified site, Z51.81 - Encounter for therapeutic drug level monitoring, Z79.899 - Other shelter (current) drug therapy US guided asp or inj major jt Today M10.00 - Idiopathic gout, unspecified site, M25.571 - Pain in right ankle and joints of right foot Medications: New prednisone 5 mg PO DAILY 90 tabs 1RF M10.00 - Idiopathic gout, unspecified site colchicine 0.6 mg PO BID 180 tabs 1RF M10.00 - Idiopathic gout, unspecified site Changed From allopurinol 600 mg (2 x 300 mg) PO DAILY 180 tabs 1RF M10.00 - Idiopathic gout, unspecified site, M10.9 - Gout, unspecified To allopurinol 800 mg (4 x 200 mg) PO DAILY 90 days 360 tabs 1RF M10.00 - Idiopathic gout, unspecified site, M10.9 - Gout, unspecified Discontinued prednisone take 4 tablets for 10 days then 3 tablets for 10 days then 2 tablets for 10 days then 1 tablet for 10 days then 0.5 tablet for 10 days Discontinued Reason: Doctor's Order 10 mg PO DIRECTED 105 tabs 0RF M10.9 - Gout, unspecified indomethacin administer with food or milk Discontinued Reason: Doctor's Order 50 mg PO TID 30 caps 0RF M10.00 - Idiopathic gout, unspecified site, M79.671 - Pain in right foot Coding Level of Care Code Est Pt Level 5 (34326) Complex EM visit Add On G2211 Diagnoses Idiopathic gout, unspecified chronicity, unspecified site M10.00 Chronicity: unspecified Gout etiology: idiopathic Gout site: unspecified site Encounter for monitoring allopurinol therapy Z51.81; Z79.899 On colchicine therapy Z79.899
== END 2024-12-13 11:32 | disposition home or self-care (01) ==
PROVIDERS: PCP Internal Medicine; Visit Provider Student in an Organized Health Care Education/Training Program
DX: M10.09 Idiopathic gout, multiple sites (principal); Z51.81 Encounter for therapeutic drug level monitoring; Z79.899 Other long term (current) drug therapy
CPT/HCPCS: 99215; G2211

== ENCOUNTER → 2024-12-13 10:50 | Outpatient (BNVA) | payer OTHER, SELFPAY | PROVIDERS: PCP Internal Medicine; Visit Provider Student in an Organized Health Care Education/Training Program | DX: M10.00 Idiopathic gout, unspecified site (principal); Z51.81 Encounter for therapeutic drug level monitoring; Z79.899 Other long term (current) drug therapy | CPT/HCPCS: 99212 ==

== ENCOUNTER 2025-01-04 07:08 | Outpatient (REF) | payer OTHER, SELFPAY ==
--- OUTSIDE RECORDS SUMMARY | 2025-01-04 07:11 | XMS_ITS | Clinical Summary ---
Author Organization [facility] ity Address [address] [place] [address] Care Team Providers Care Calibration Tester Name Role Phone Unavailable Primary Care Provider [...] - 2023-2 5 season) 2024 Influenza Vaccine (Season Ended) 2025 HIB Vaccines Aged Out No longer eligi [...] age to complete this topic Meningococcal B Vaccine Aged Out No l onger eligible based on patient's age to complete [...]
[2025-01-04] MEDS: Lidocaine HCl 2 % MPF 5 ML VIAL SUBCUT (08:28)
[2025-01-04] MEDS: Triamcinolone Acetonide 40 MG/ML VIAL INTRAARTIC (08:29)
--- NOTE | 2025-01-05 08:25 | PCN2_ITS ---
Brief Operative Note Date of procedure: 01/04/25 Pre-op diagnosis: Gout flare Post-op diagnosis: same Procedure: Date: 01/04/25 Study Type: Limited Ultrasound with Guidance of needle placement Indication: Right ankle pain Study Site: Right ankle Equipment: Chamelic US Brief History: Patient with gout, with perisistent flare of his ankle Relevant meds: ?Allopurinol 800mg daily, colchicine 0.6mg bid, prednisone 5mg Images reviewed: CT Ankle 11/2024 Findings: There is relatively mild soft tissue edema at the ankle. This is more evident laterally. The soft tissues are otherwise unremarkable. There are no acute bony abnormalities. There are posterior and plantar calcaneal spurs. There is a tibiotalar joint effusion. The joint spaces are preserved. Impression: 1.Mild soft tissue edema at the ankle. 2.Tibiotalar joint effusion. 3.Calcaneal spurs. Findings: ?Orthogonal views of the anterior and lateral aspects of the right ankle were obtained in grayscale and Doppler. Tibiotalar joint viewed in longitudinal and horizontal planes. No effusions noted Subtalar joint viewed in longitudinal and horizontal plane. Mild effusion noted with positive Doppler signal Procedure: ?After obtaining informed consent for an ultrasound-guided aspiration and glucocorticoid injection of the right ankle, the subtalar joint was imaged with ultrasound. ?The area was marked and then was sterilely prepped with chlorh exidine and anesthetized with lidocaine spray. ?A 22 gauge 1.5 in needle was advanced into the synovial cavity under direct ultrasound visualization using in plane technique. ?40 mg of Kenalog was injected through the same needle. ?The procedure was well tolerated. Impressions: ? Subtalar joint effusion with mild inflammatory arthritis consistent with gouty arthritis Successful steroid injection to the subtalar joint
== END 2025-01-04 07:09 | disposition home or self-care (01) ==
LOC: HO.US 07:08
PROVIDERS: PCP Internal Medicine; Visit Provider Student in an Organized Health Care Education/Training Program
DX: M10.00 Idiopathic gout, unspecified site (principal); M25.571 Pain in right ankle and joints of right foot
CPT/HCPCS: 20611; J2003; J3301

== ENCOUNTER → 2025-01-04 07:08 | Outpatient (BNV) | payer OTHER, SELFPAY | PROVIDERS: PCP Internal Medicine; Visit Provider Student in an Organized Health Care Education/Training Program | DX: M25.471 Effusion, right ankle (principal); M10.071 Idiopathic gout, right ankle and foot | CPT/HCPCS: 20605; 76942 ==

== ENCOUNTER 2025-01-04 09:14 | Day surgery (SDC) | payer OTHER, SELFPAY ==
--- OUTSIDE RECORDS SUMMARY | 2024-11-25 13:44 | XMS_ITS | Clinical Summary ---
Author Organization [facility] ity Address [address] [place] [address] Care Team Providers Care Residential Concierge Name Role Phone Unavailable Primary Care Provider [...]
[2025-01-02 15:16] VITALS: BMI 26.7
[2025-01-04 10:13] VITALS: PULSE 63; RESP 16; TEMP 36.7; O2SAT 99; BMI 26.4
--- NOTE | 2025-01-04 10:24 | MHC.SHP ---
Pre-Procedural Eval Section A - 24 Hr Update-Section A only Date of Service: 01/04/25 Section B - Complete if H&P > 30 days Chief Complaint: screening Relevant Family History (Specify if Yes): No Relevant Social History: None Present Medications: see Short Stay Collaborative assessment Medical History: Significant History (Obesity Diabetes High cholesterol Hypogonadism Erectile dysfunction Gout Neck pain and thoracic back pain Right shoulder pain ) History of Previous Operations: Relevant previous surgery/procedure and date(s) (Surgery to the right eye s/p injury in childhood) Allergies: Allergies Allergy/AdvReac Type Severity Reaction Status Date / Time No Known Allergies Allergy Verified 01/04/25 09:47 Review of Systems Sugical H&P ROS: Negative: Constitution, Cardiovascular, Respiratory, Neurological, Psychiatric, Hem-Onc, Allergic/Immunologic, Gastrointestinal, Genitourinary, Musculoskeletal, Integumentary, Endocrine and Eyes/Ears/Nose/Throat Exam Surgical H&P Exam: Normal: HEENT, Normal: Heart, Normal: Lungs, Normal: Extremities, Normal: Abdomen, Normal: Skin and Normal: Neurological Plan Diagnosis/Plan: Unchanged I have reviewed the history and physical and performed a pertinent physical examination on my patient. No changes have occurred unless specified. Time Spent With Patient Time: Total time managing care of this patient today ____ minutes.
[2025-01-04 10:37] LABS: Glucose, Whole Blood 166 mg/dL (60-115)
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
--- NOTE | 2025-01-04 11:04 | P.OPN-COLO_ITS ---
Colonoscopy Operative Note Operative Note Date of Service: 01/04/25 Narrative: Operative Information Procedure Description: Colonoscopy Indication: screening Anesthesia: MAC COLONOSCOPY Instrument: Olympus variable stiffness pediatric scope 190L Colonoscopy Monitoring: Vital signs and clinical assessment, continuous EKG monitoring, Pulse oximetry, Carbon Dioxide monitoring and blood pressure monitoring were done throughout the procedure. Colon withdrawal time was 12 minutes. Procedure: The patient was placed in the left lateral decubitis position and pre-procedure medications were administered. After a digital rectal examination of the ano-rectum, the video colonoscope was inserted into the rectum and advanced through the colon to the cecum/TI. The colonoscope was slowly withdrawn in a retrograde panoramic fashion and the colon mucosa was carefully examined including a retroflexed view of the rectum. Findings and interventions are described below. Procedure Difficulty: easy Findings: Terminal Ileum-normal Cecum:normal Right sided retroflexion- normal Ascending Colon: normal Transverse Colon -normal Descending Colon:normal Sigmoid Colon: 6-8 mm sessile polyp removed with cold snare Rectum: Retroflexion with small internal hemorrhoids seen, grade I Anorectum - normal Intervention: cold snare Colon preparation: [place] Bowel Preparation Scale Right colon; 2 Transverse colon: 2 Left colon; 2 (0 = Unprepared colon segment with mucosa not seen due to solid stool that cannot be cleared. 1 = Portion of mucosa of the colon segment seen, but other areas of the colon segment not well seen due to staining, residual stool and/or opaque liquid. 2 = Minor amount of residual staining, small fragments of stool and/or opaque liquid, but mucosa of colon segment seen well. 3 = Entire mucosa of colon segment seen well with no residual staining, small fragments of stool or opaque liquid) Impression and Post Procedure Diagnosis: diverticulosis colon polyps internal hemorrhoids Plan: High fiber diet leaflet Avoid straining at stool, epsom salts and sitz bath, anusol supps or cream Repeat Colonoscopy in 5 years due to adenomatous appearing polyp or earlier if clinically indicated Above findings were reviewed with the patient and relevant handouts were provided if indicated.
[2025-01-04 11:05] VITALS: BP 82/47; PULSE 87; RESP 16; TEMP 36.2; O2SAT 91
[2025-01-04 11:10] VITALS: BP 103/65; PULSE 80; RESP 16; O2SAT 97
[2025-01-04 11:20] VITALS: BP 105/78; PULSE 80; RESP 16; O2SAT 97
== END 2025-01-04 12:09 | disposition home or self-care (01) ==
PROVIDERS: PCP Internal Medicine; Visit Provider Internal Medicine Gastroenterology
PROC: 0DJD8ZZ Inspection of Lower Intestinal Tract, Via Natural or Artificial Opening Endoscopic (ICD-10-PCS; CPT 45378; principal; 2025-01-04 11:00)
DX: Z12.11 Encounter for screening for malignant neoplasm of colon (principal); D12.5 Benign neoplasm of sigmoid colon; K64.0 First degree hemorrhoids; E11.9 Type 2 diabetes mellitus without complications; E78.00 Pure hypercholesterolemia, unspecified; M10.9 Gout, unspecified; E66.9 Obesity, unspecified; Z68.26 Body mass index [BMI] 26.0-26.9, adult; N52.9 Male erectile dysfunction, unspecified; Z79.899 Other long term (current) drug therapy
CPT/HCPCS: 45385; 82947; 88305; J2003; J2704

== ENCOUNTER → 2025-01-04 09:14 | Outpatient (BNV) | payer OTHER, SELFPAY | PROVIDERS: PCP Internal Medicine; Visit Provider Internal Medicine Gastroenterology | DX: Z12.11 Encounter for screening for malignant neoplasm of colon (principal); D12.5 Benign neoplasm of sigmoid colon; K64.0 First degree hemorrhoids | CPT/HCPCS: 45385 ==

== ENCOUNTER 2025-01-11 07:55 | Outpatient (AMB) | payer OTHER, SELFPAY ==
--- NOTE | 2025-01-11 07:56 | MHC.OFFVIS ---
Vital Signs 01/11/25 08:02 Height 5 ft 11 in Weight 194 lb 7.163 oz BMI 27.1 BP 112/62 Blood Pressure Location Lt brachial Position Sitting Respiration 18 Pulse 56 Pulse Source Pulse Oximeter Pulse Oximetry (%) 96 Oxygen Delivery Method Room Air Intake Visit Reasons: US follow up Intake Note: Patient presents for US follow up. Sorting Grapple Operator Required: Yes Sorting Grapple Operator Language: Security Flex Utility Officer Services: Sorting Grapple Operator Present Sorting Grapple Operator Name: Annie [email or web address] Information Interpreted: non-clinical & clinical Allergies No Known Allergies Allergy (Verified 01/11/25 08:01) Medication List - Last Reconciled 01/11/25 by Jennifer Sams MD allopurinol 800 mg (4 x 200 mg) PO DAILY 90 days blood sugar diagnostic (FreeStyle Lite Strips) As directed once a day - Dx: E11.9 -- diabetes blood-glucose meter (FreeStyle Lite Meter kit) As directed - Dx: E11.9 -- diabetes cholecalciferol (vitamin D3) 50 mcg PO DAILY 90 days colchicine 0.6 mg PO BID diclofenac potassium 50 mg PO DAILY PRN 30 days lancets (FreeStyle Lancets) As directed metformin ER 1,000 mg (2 x 500 mg) PO BID prednisone 5 mg PO DAILY sitagliptin phosphate (Januvia) 100 mg PO DAILY 90 days tadalafil 20 mg PO DAILY 90 days HPI Comments Details: Patient is a 54-year-old male with diabetes, hypertension, hyperlipidemia and non crystal proven non tophaceous gout here today for follow up Interval History: Patient last seen 12/13/2024 with me. At that time he was following up for gout. He continued to have right ankle pain and so was sent for ankle ultrasound which showed subtalar effusion and inflammation and he received a steroid injection to the subtalar joint. He was also started on colchicine in addition to prednisone 5 mg daily Still having some pain in his ankle even after injection Mainly at the area of the achilles tendon Rheumatologic History: ddx 2011 Allopurinol 11/2024 Initial history by me: Patient has been having intermittent gout flares with a past 13 years. His gout is currently managed by his PCP. Originally he was started on allopurinol 300 mg but this was not up titrated and his uric acid remain elevated and so he was subsequently switched to febuxostat. He denies any adverse reactions while being on allopurinol Currently he has been having a flare of his gout that started in August. Initially started with right 1st MTP pain and swelling and this now progressed to involve the entire foot including the ankle. Was given a short taper but this did not improve his symptoms this time. Of note he has had flares involving his knees, and the opposite foot in the past. Risk Factors for Gout HTN Denies: Family history of gout, CKD, EtOH use and use of medications: low-dose ASA, diuretics, cyclosporine Current Rheumatology Medication(s): Allopurinol 600mg daily Prednisone 5mg Colchicine 0.6mg bid [facility] Medical History Encounter for monitoring allopurinol therapy Erectile dysfunction Gout Obesity (BMI 30-39.9) Mixed hyperlipidemia Diabetes mellitus Surgical History History of eye surgery Family History Father No problems noted. 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 Cognitive needs: No Hearing needs: No Vision needs: No Review of Systems Const Details: Review of Systems Constitutional: Denies fever, chills, weight loss ENT: Denies vision changes, eye pain or eye redness, dental caries, dry mouth GI: Denies nausea, vomiting, diarrhea, abdominal pain, change in BM Pulm: Denies SOB, MIGUEL, hemoptysis, wheezing Cards: Denies chest pain, palpitations Skin: Denies Raynaud's, rash, nail changes, photosensitivity, 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 Well appearing and in no apparent painful distress HEENT Conjunctiva and sclera clear. ?Pupils equal round and reactive to light. ?No lymphadenopathy. ? CHEST/RESPIRATORY SYSTEM Normal respiratory effort and able to speak in complete sentences. ?Clear to auscultation bilaterally. ?No crackles, rales, rhonchi, wheezes heard. CARDIAC SYSTEM Regular rate and rhythm. ?S1 and S2 heard no murmurs. 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 No deformities noted. ?No synovitis noted to the MCPs, PIPs or DIPs. ?No tenderness to palpation of these joints. Wrists: ?Full range of motion at the wrists without pain. ?No tenderness to palpation or synovitis noted to the wrists. Elbows: Full range of motion without pain. No tenderness, weakness, swelling, increased warmth or erythema. Shoulders: Full range of motion without pain. No tenderness, weakness, swelling, increased warmth or erythema. Hips: Full range of motion without pain. Hip bursa: No tenderness to palpation Knees: ?Full range of motion. ?No tenderness, swelling, increased warmth or erythema.?No effusion or crepitations Ankles: Tibiotalar and subtalar joint without swelling or tenderness to palpation. Insertion of the Achilles tendon is swollen and tender to palpation Feet: ?Negative squeeze test bilaterally Tender points:?No tenderness to palpation of the bilateral trapezius, supraspinatus, greater trochanters, anterior costochondral junctions, bilateral gluteal areas, bilateral suboccipital muscle insertions SKIN Skin intact without rashes. No tophi noted Results Reviewed Results Reviewed: Laboratory Tests 10/30/24 12/12/24 13:25 06:56 WBC 8.2 RBC 5.19 Hgb 14.8 Hct 46.2 Plt Count 414 H ESR 12 Sodium 143 Potassium 4.5 Chloride 108 Carbon Dioxide 26 BUN 15 Creatinine 1.04 Uric Acid 8.1 H 8.5 H Calcium 9.6 8.8 D Total Bilirubin 0.3 AST 18 ALT 22 Alkaline Phosphatase 85 C-Reactive Protein 0.23 0.23 Total Protein 7[address] Right Ankle 11/2024 Findings: There is relatively mild soft tissue edema at the ankle. This is more evident laterally. The soft tissues are otherwise unremarkable. There are no acute bony abnormalities. There are posterior and plantar calcaneal spurs. There is a tibiotalar joint effusion. The joint spaces are preserved. Impression: 1.Mild soft tissue edema at the ankle. 2.Tibiotalar joint effusion. 3.Calcaneal spurs. Assessment & Plan Assessment & Plan (1) Gout: Code(s): M10.9 - Gout, unspecified Category: Medical Qualifiers: Gout site: unspecified site Gout etiology: idiopathic Chronicity: unspecified Qualified Code(s): M10.00 - Idiopathic gout, unspecified site Plan: #Gout Patient is a 54-year-old male with non crystal proven gout here today for follow up. Patient's flare has resolved but still has persistent Achilles tendonitis. We will refer him to Podiatry and get an MRI of his right ankle. Subtalar arthritis improved after injection Plan - Allopurinol 800mg daily - Colchicine 0.6mg - Prednisone 5mg daily - Podiatry referral - MRI Right ankle w/o contrast - Labs today: CBC, CMP, ESR, CRP, UA - RTC 3 months (2) Encounter for monitoring allopurinol therapy: Code(s): Z51.81 - Encounter for therapeutic drug level monitoring; Z79.899 - Other shelter (current) drug therapy Category: Medical Plan: #Long-term Current Use of Allopurinol Risks and benefits of allopurinol discussed with patient Benefits include decreased gout flares, remission of gout and reduction of tophi Risks include allopurinol hypersensitivity syndrome which is a severe cutaneous adverse reaction associated with allopurinol use particularly in patients who are HLA [id number] positive, increased transaminases, GI upset including diarrhea, nausea and vomiting, and other dermatologic manifestations. (3) On colchicine therapy: Code(s): Z79.899 - Other shelter (current) drug therapy Plan: #Long-term use of colchicine Risks and benefits of long-term colchicine for the management of this patient's gout discussed with patient. Benefits include reduced occurrence of flares while we titrate and regulate his uric acid on allopurinol and other uric acid lowering medications. ? Risks include worsening myalgias especially if on statins and GI upset including diarrhea Plan I spent 30 minutes reviewing the record and labs, taking a history, examining the patient, discussing the treatment plan, ordering diagnostic work up, completing FMLA paperwork and documenting in the medical record Orders: Orders MR ankle RT wo con Today M10.00 - Idiopathic gout, unspecified site, M76.61 - Achilles tendinitis, right leg Referrals Podiatry Referral M76.61 - Achilles tendinitis, right leg Medications: Refilled allopurinol 800 mg (4 x 200 mg) PO DAILY 90 days 360 tabs 1RF M10.00 - Idiopathic gout, unspecified site, M10.9 - Gout, unspecified colchicine 0.6 mg PO BID 180 tabs 1RF M10.00 - Idiopathic gout, unspecified site prednisone 5 mg PO DAILY 90 tabs 1RF M10.00 - Idiopathic gout, unspecified site Coding Level of Care Code Est Pt Level 4 (34120) Complex EM visit Add On G2211 Diagnoses Idiopathic gout, unspecified chronicity, unspecified site M10.00 Gout site: unspecified site Gout etiology: idiopathic Chronicity: unspecified Encounter for monitoring allopurinol therapy Z51.81; Z79.899 On colchicine therapy Z79.899
--- OUTSIDE RECORDS SUMMARY | 2025-01-11 07:59 | XMS_ITS | Clinical Summary ---
Author Organization [facility] [employer] [facility] ity Address [address] [place] [address] Care Team Providers Care Standpipe Tender Name Role Phone Unavailable Primary Care Provider [...]
[2025-01-11 08:02] VITALS: BP 112/62; PULSE 56; RESP 18; O2SAT 96; BMI 27.1
== END 2025-01-11 08:22 | disposition home or self-care (01) ==
LOC: HO.RHE 07:55
PROVIDERS: PCP Internal Medicine; Visit Provider Student in an Organized Health Care Education/Training Program
DX: M10.00 Idiopathic gout, unspecified site (principal); Z51.81 Encounter for therapeutic drug level monitoring; Z79.899 Other long term (current) drug therapy
CPT/HCPCS: 99214; G2211

== ENCOUNTER 2025-01-11 08:26 | Outpatient (REF) | payer OTHER, SELFPAY ==
--- OUTSIDE RECORDS SUMMARY | 2025-01-11 08:46 | XMS_ITS | Clinical Summary ---
Author Organization [facility] [employer] [facility] ity Address [address] [place] [address] Care Team Providers Care Cash Checker Name Role Phone Unavailable Primary Care Provider [...]
[2025-01-11 09:51] LABS: MANUAL DIFF FLAG NO
[2025-01-11 10:03] LABS: Basophils Absolute Auto 0.1 X10*3/uL (0.0-0.2); Basophils Percent Auto 1.1 % (0-2); Eosinophils Absolute Auto 0.3 X10*3/uL (0.0-0.4); Eosinophils Percent Auto 2.9 % (0-4); Hemoglobin 15.9 g/dl (14.0-18.0); Imm Gran Abs Auto 0.05 X10*3/uL (0.00-0.03); Imm Gran Pct Auto 0.5 % (0.0-0.4); Lymphocytes Absolute Auto 2.8 X10*3/uL (1.2-4.9); Lymphocytes Percent Auto 28.3 % (20-40); Mean Corpuscular HGB Conc 33.1 g/dl (31.0-36.0); Mean Corpuscular Hemoglobin 28.6 pg (27.0-33.0); Mean Corpuscular Volume 86.5 fL (80.0-98.0); Mean Platelet Volume 9.9 fL (9.4-12.4); Monocytes Absolute Auto 0.7 X10*3/uL (0.1-1.2); Monocytes Percent Auto 7.5 % (2-11); Neutrophils Absolute Auto 5.9 x10*3/uL (2.0-8.3); Neutrophils Percent Auto 59.7 % (45-73); Platelet Count 348 X10*3/uL (160-400); Red Blood Count 5.55 X10*6/uL (4.60-5.80); Red Cell Distribution Width 13.2 % (11.0-16.0); White Blood Count 9.9 X10*3/uL (4.8-10.8)
[2025-01-11 10:35] LABS: Erythrocyte Sedimentation Rate 2 MM/HR (0-15)
[2025-01-11 11:44] LABS: Alanine Aminotransferase 34 U/L (0-40); Albumin Level 4.5 g/dL (3.5-5.0); Alkaline Phosphatase 90 U/L (39-117); Anion Gap 12 (12-20); Aspartate Amino Transferase 22 U/L (5-37); Bilirubin Total 0.5 mg/dL (0.0-1.0); Blood Urea Nitrogen 17 mg/dL (9-16); C Reactive Protein < 0.10 mg/dL (< or = 0.50); Calcium 9.9 mg/dL (8.4-10.2); Carbon Dioxide 29 mmol/L (22-29); Chloride 102 mmol/L (96-108); Estimated Glomerular Filt Rate > 60; Glucose Random 180 mg/dL (60-115); Potassium 4.2 mmol/L (3.3-5.1); Sodium 139 mmol/L (135-145); Total Protein 7.7 g/dL (6.5-8.0); Uric Acid 8.5 mg/dL (3.4-7.0)
== END 2025-01-11 08:27 | disposition home or self-care (01) ==
LOC: HO.10HDL 08:26
PROVIDERS: Visit Provider Student in an Organized Health Care Education/Training Program
DX: Z51.81 Encounter for therapeutic drug level monitoring (principal); M10.00 Idiopathic gout, unspecified site; Z79.899 Other long term (current) drug therapy
CPT/HCPCS: 36415; 80053; 84550; 85025; 85652; 86140; 99212

== ENCOUNTER 2025-01-12 11:49 | Outpatient (REF) | payer OTHER, SELFPAY ==
[2025-01-12 13:15] LABS: Appearance Urine Clear; Color Urine Yellow; Glucose Urine UA Negative (Negative); Leukocyte Esterase Urine Negative (Negative); Nitrite Urine Negative (Negative); Urine Blood Negative (Negative); Urine Ketones Negative (Negative); Urine Protein Negative (Neg-Trace)
[2025-01-12 13:42] LABS: Creatinine Urine 110.14 mg/dL
[2025-01-12 13:48] LABS: Uric Acid Urine Random 39.5 mg/dL
--- OUTSIDE RECORDS SUMMARY | 2025-01-12 14:10 | XMS_ITS | Clinical Summary ---
Author Organization [facility] [employer] [facility] ity Address [address] [place] [address] Care Team Providers Care Clinical Trials Specialist Name Role Phone Unavailable Primary Care [...]
== END 2025-01-12 11:50 | disposition home or self-care (01) ==
LOC: HO.10HDLNP 11:49
PROVIDERS: Visit Provider Student in an Organized Health Care Education/Training Program
DX: M10.9 Gout, unspecified (principal)
CPT/HCPCS: 81003; 82570; 84560

== ENCOUNTER 2025-01-28 18:26 | Outpatient (REF) | payer OTHER, SELFPAY ==
--- NOTE | ~2025-01-28 | MR_ITS ---
CLINICAL HISTORY: M76.61 - Achilles tendinitis, right leg MR right ankle Comparison: CT/SR - CT ANKLE RT WO IV CON - 12/12/24 07:25 EDT CR/SR - XR FOOT RT MIN 3V - 09/19/24 13:53 EST Findings: There is increased signal on fat saturated T2 weighted and proton density images within calcaneus most prominent at medial aspect involving the anterior process and calcaneal tuberosity. There is a mild amount of increased signal in the medial malleolus on the fat saturated T2 weighted and proton density images. There is trace associated decreased signal on the T1 weighted images. Bone marrow signal is otherwise normal. Preserved articulations. Mild osteophytosis. Moderate-sized joint effusion of the tibiotalar joint. There is also a moderate amount of fluid in the subtalar joints. Intact talar dome and subtalar joint cartilage. There is increased signal in the Achilles tendon, particularly at its insertion upon calcaneal tuberosity. There is peritendinous edema. No complete tear or retraction. The extensor and flexor tendons are intact. Deltoid ligament is intact. Syndesmotic and lateral compartment ligaments are intact. Plantar fascia is intact without significant increase in size or signal. There is a calcaneal spur. Musculature is normal in signal and bulk. Impression: Edema within the calcaneus of the medial malleolus of uncertain etiology. No fracture line. Correlate clinically for signs/symptoms of infection to exclude osteomyelitis. Posttraumatic etiology may also be considered. Moderate-sized joint effusions of the tibiotalar and subtalar joints could be infectious/inflammatory. This could be related to the patient's history of gout. Achilles tendinopathy with peritendinitis. Partial/interstitial tears could be considered. No complete tear. This document has been electronically signed by: Mary Delcid MD on 01/30/2025 21:44:25
== END 2025-01-28 18:27 | disposition home or self-care (01) ==
LOC: HO.MRI 18:26
PROVIDERS: PCP Internal Medicine; Visit Provider Student in an Organized Health Care Education/Training Program
DX: M76.61 Achilles tendinitis, right leg (principal); M10.00 Idiopathic gout, unspecified site
CPT/HCPCS: 73721

== ENCOUNTER → 2025-01-28 18:35 | Outpatient (BNV) | payer OTHER, SELFPAY | PROVIDERS: PCP Internal Medicine; Visit Provider Radiology Diagnostic Radiology | DX: M76.61 Achilles tendinitis, right leg (principal); R60.0 Localized edema | CPT/HCPCS: 73721 ==

== ENCOUNTER 2025-02-03 07:45 | Outpatient (REF) | payer OTHER, SELFPAY ==
--- OUTSIDE RECORDS SUMMARY | 2025-02-03 07:47 | XMS_ITS | Clinical Summary ---
Author Organization [address] [facility] Address [address] [place] [address] Phone Care Team Providers Care Hand Pleater Name Role Phone Juan Ngo MD Primary Care Provider Social History Tobacco Use Types Packs/Day Years Used Date Smoking Tobacco: Never Assessed Sex and Gender Information Value Date Recorded Sex Assigned at Not on file Legal Sex Male 7:34 PM EST Gender Identity Not on file Sexual Orientation Not on file Plan of Treatment Upcoming Encounters Date Type Department Care Team ([facility] st Contact Info) Description 03/14/2025 1:30 PM EDT Consult Orthopedic Surgery [place] [id number] [phone] Kvng Azar, DPM [address] [id number] Health Maintenance Due Date Last Done Comments [...] Influencers of Health Screening 10/20/2023 COVID-19 Vaccine (1 - 2023-2 5 season) 2024 Influenza Vaccine [...] on patient's age to complete this [place] [address] Care Teams Hand Pleater Relationship Specialty Start Date End Date Juan Ngo MD [address] [place] [address] [address] [employer], [place] PCP - General Internal Medicine 01/19/25
[2025-02-03 08:01] LABS: MANUAL DIFF FLAG NO
[2025-02-03 08:52] LABS: Appearance Urine Clear; Color Urine Yellow; Glucose Urine UA Negative (Negative); Leukocyte Esterase Urine Negative (Negative); Nitrite Urine Negative (Negative); PH 5.5 (5.0-9.0); Urine Blood Negative (Negative); Urine Ketones Negative (Negative); Urine Protein Negative (Neg-Trace)
[2025-02-03 08:52] LABS: Basophils Absolute Auto 0.1 X10*3/uL (0.0-0.2); Basophils Percent Auto 0.9 % (0-2); Eosinophils Absolute Auto 0.3 X10*3/uL (0.0-0.4); Eosinophils Percent Auto 3.1 % (0-4); Hematocrit 48.1 % (42.0-52.0); Hemoglobin 15.9 g/dl (14.0-18.0); Imm Gran Abs Auto 0.05 X10*3/uL (0.00-0.03); Imm Gran Pct Auto 0.5 % (0.0-0.4); Lymphocytes Absolute Auto 2.3 X10*3/uL (1.2-4.9); Lymphocytes Percent Auto 24.3 % (20-40); Mean Corpuscular HGB Conc 33.1 g/dl (31.0-36.0); Mean Corpuscular Hemoglobin 28.7 pg (27.0-33.0); Mean Corpuscular Volume 86.8 fL (80.0-98.0); Mean Platelet Volume 9.6 fL (9.4-12.4); Monocytes Absolute Auto 0.7 X10*3/uL (0.1-1.2); Monocytes Percent Auto 7.1 % (2-11); Neutrophils Absolute Auto 6.2 x10*3/uL (2.0-8.3); Neutrophils Percent Auto 64.1 % (45-73); Platelet Count 352 X10*3/uL (160-400); Red Blood Count 5.54 X10*6/uL (4.60-5.80); Red Cell Distribution Width 13.2 % (11.0-16.0); White Blood Count 9.6 X10*3/uL (4.8-10.8)
[2025-02-03 08:59] LABS: Estimated Average Glucose 171 mg/dL; Hemoglobin A1C 243.0729 umol/L; Hemoglobin A1c % 7.6 % (<6.0); Total Hemoglobin (HGBA1C) 4076.3336 umol/L
[2025-02-03 09:18] LABS: Creatinine Urine 139.72 mg/dL; Microalbum/Creatinine Ratio Ur 5.7 ug/mg cr (<30)
[2025-02-03 09:25] LABS: Anion Gap 14 (12-20)
[2025-02-03 09:27] LABS: Alanine Aminotransferase 31 U/L (0-40); Albumin Level 4.6 g/dL (3.5-5.0); Alkaline Phosphatase 91 U/L (39-117); Aspartate Amino Transferase 23 U/L (5-37); Bilirubin Total 0.5 mg/dL (0.0-1.0); Blood Urea Nitrogen 17 mg/dL (9-16); C Reactive Protein 0.12 mg/dL (< or = 0.50); Calcium 9.4 mg/dL (8.4-10.2); Carbon Dioxide 26 mmol/L (22-29); Chloride 105 mmol/L (96-108); Cholesterol 170 mg/dL (<200); Estimated Glomerular Filt Rate > 60; Glucose Fasting 159 mg/dL (60-99); Glucose Random 157 mg/dL (60-115); HDL Cholesterol 36 mg/dL (>40); LDL Cholesterol Calculated 91 mg/dL (<100); Potassium 3.9 mmol/L (3.3-5.1); Sodium 141 mmol/L (135-145); Triglycerides 217 mg/dL (<150)
[2025-02-03 09:36] LABS: Erythrocyte Sedimentation Rate 5 MM/HR (0-15)
[2025-02-03 09:41] LABS: TSH reflex Free T4 0.58 uIU/mL (0.32-4.0); Vitamin D 25-OH Total 39.2 ng/mL (>30)
[2025-02-03 10:44] LABS: Uric Acid 4.8 mg/dL (3.4-7.0)
== END 2025-02-03 07:46 | disposition home or self-care (01) ==
LOC: HO.LAB 07:45
PROVIDERS: Student in an Organized Health Care Education/Training Program; PCP Internal Medicine; Visit Provider Internal Medicine
DX: M10.00 Idiopathic gout, unspecified site (principal); E78.00 Pure hypercholesterolemia, unspecified; R30.0 Dysuria; E55.9 Vitamin D deficiency, unspecified; E11.9 Type 2 diabetes mellitus without complications
CPT/HCPCS: 36415; 80053; 80061; 81003; 82043; 82306; 82570; 83036; 84443; 84550; 85025; 85652; 86140

== ENCOUNTER 2025-02-06 17:35 | Outpatient (AMB) | payer OTHER, SELFPAY ==
[2025-02-06 17:45] VITALS: BP 110/80; PULSE 78; O2SAT 98; BMI 26.6
--- NOTE | 2025-02-06 17:45 | MHC.PC.OV ---
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 Accompanied by: Spouse Allergies No Known Allergies Allergy (Verified 02/06/25 17:52) Medication List - Last Reconciled 02/06/25 by Juan Ngo MD allopurinol 800 mg (4 x 200 mg) PO DAILY 90 days blood sugar diagnostic (FreeStyle Lite Strips) As directed once a day - Dx: E11.9 -- diabetes blood-glucose meter (FreeStyle Lite Meter kit) As directed - Dx: E11.9 -- diabetes cholecalciferol (vitamin D3) 50 mcg PO DAILY 90 days colchicine 0.6 mg PO BID diclofenac potassium 50 mg PO DAILY PRN 30 days lancets (FreeStyle Lancets) As directed metformin ER 1,000 mg (2 x 500 mg) PO BID prednisone 5 mg PO DAILY probenecid 500 mg PO BID sitagliptin phosphate (Januvia) 100 mg PO DAILY 90 days tadalafil 20 mg PO DAILY 90 days Tobacco use date assessed: 11/01/24 Dental Screening Dental Screen Date: 11/01/24 HPI gout, DM, hyperlipidemia, HTN HPI Details Patient comes in today for his follow up visit States that he is still experiencing pain in his right ankle He has gouty arthritis of the right ankle and has been seeing rheumatology for his ankle pain over the past couple of months He underwent ultrasound-guided aspiration and glucocorticoid injection of the right ankle last month with some relief He had an MRI of the ankle done last week which revealed (+) edema within the calcaneus of the medial malleolus of uncertain etiology He has been referred to podiatry for further evaluation and is now scheduled to be seen by podiatry next month Patient's states that based on his recent MRI findings, they are concerned about the possibility of an infection in his ankle Patient in addition pain in his ankle, he has noticed some on and off redness, especially over his Achilles tendon area Patient denies any fever He denies any headaches or dizziness Denies any chest pains, no increased shortness of breath No nausea/vomiting, no abdominal pain No change in bowel habits noted He had his follow-up labs done a few days ago - to discuss his results [facility] Medical History Encounter for monitoring allopurinol therapy Erectile dysfunction Gout Obesity (BMI 30-39.9) Mixed hyperlipidemia Diabetes mellitus Surgical History History of eye surgery Family History Father No problems noted. 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 1. Little interest or pleasure in doing things: not at all 2. Feeling down, depressed, or hopeless: several days 3. Trouble falling or staying asleep, or sleeping too much: several days 4. Feeling tired or having little energy: not at all 5. Poor appetite or overeating: several days 6. Feeling bad about yourself - or that you are a failure or have let yourself or your family down: several days 7. Trouble concentrating on things, such as reading the newspaper or watching television: not at all 8. Moving or speaking so slowly that other people could have noticed. Or the opposite - being so fidgety or restless that you have been moving around a lot more than usual: not at all 9. Thoughts that you would be better off or of hurting yourself in some way: not at all Total score: 4 Depression Screening Interpretation: Positive Depression Screening Follow-up: Follow-up Visit Requested Depression Screening Done: Yes 59934 - PHQ-9 Billing: Yes Source: Developed by Drs. Thuan Merchant, Shana Coppola, Agustín Jane and colleagues, with an educational yamil from [employer]. Thrive Questionnaire Date Thrive assessed: 02/06/25 I am a: Patient What is your living situation today?: I have a steady place to live Within the past 12 months, did the food you bought not last and you didn't have the money to get more?: I choose not to answer this question Within the past 12 months, did you worry whether your food would run out before you got money to buy more?: I choose not to answer this question Do you have trouble paying for medicines?: Yes Do you have trouble getting transportation to medical appointments?: No Do you have trouble paying your heating and electricity bill?: I choose not to answer this question Do you have trouble taking care of your child, family member or friend?: No Do you have trouble with day-to-day activities such as bathing, preparing meals, shopping, managing finances, etc.?: Yes Are you currently unemployed and looking for a job?: No Are you interested in more education?: No Please select the resources that you would like help with: None Currently or been in a relationship where the following occur: No concerns reported THRIVE Score: 0 AUDIT C Alcohol Use Questionnaire (AUDIT-C) 1. How often do you have a drink containing alcohol?: Never 3. How often do you have six or more drinks on one occasion?: Never Total Score: 0 Score Reviewed/Action Taken: Yes MEJIA-7 AMB Questionnaire MEJIA-7 Date MEJIA - 7 assessed: 11/01/24 Source: Developed by Drs. Thuan Merchant, Shana Coppola, Agustín Jane and colleagues, with an educational yamil from [employer]. Review of Systems Const Denies chills, Denies fatigue, Denies fever(s) and Denies headache(s) ENT Denies dysphagia, Denies dizziness, Denies otalgia, Denies headache(s), Denies neck pain, Denies odynophagia and Denies sore throat Card Denies chest pain, Denies palpitations and Denies dyspnea Resp Denies chest congestion, Denies cough and Denies dyspnea GI Denies abdominal pain, Denies constipation, Denies dysphagia, Denies heartburn, Denies diarrhea, Denies nausea, Denies odynophagia and Denies vomiting Denies difficulty urinating, Denies dysuria, Denies nocturia and Denies urinary frequency Musc Denies back pain, Reports arthralgias (recurrent over the right ankle), Denies joint swelling and Denies neck pain Skin/Breast Denies rash Neuro Denies dizziness and Denies headache(s) Endo Denies fatigue and Denies palpitations Physical exam (Primary Care) Vital Signs: Last Vital Signs Pulse 78 02/06/25 17:45 BP 110/80 02/06/25 17:45 Pulse Ox 98 02/06/25 17:45 Oxygen Delivery Method Room Air 02/06/25 17:45 BMI result Body Mass Index 26.6 Tobacco/Smoking Status: Tobacco use Status Tobacco use date assessed 11/01/24 02/06/25 17:51 Patient Tobacco Use Status Never used Tobacco 02/06/25 17:51 e-Cigarette/Vaping Use Never Used 02/06/25 17:51 PHQ-9: PHQ-9 Score PHQ-9: Total score 4 02/06/25 17:55 Depression Screening Interpretation: Positive Depression Screening Follow-up: Follow-up Visit Requested Thrive Assessment: Date of Thrive Assessment Date Thrive assessed 02/06/25 02/06/25 17:55 Currently or been in a relationship where the following occur: No concerns reported Const General: no acute distress and alert HENMT Ears: TM's normal bilaterally and EAC's normal Throat: Yes posterior oropharynx normal and Yes tonsils normal Neck Neck: Yes supple and No lymphadenopathy Thyroid: Thyroid normal Resp Auscultation: clear to auscultation bilaterally, no rales and no wheezes Cardio Rate: regular rate Rhythm: regular rhythm Heart sounds: no murmurs GI Palpation (GI): Soft to palpation and nontender Auscultation: normal bowel sounds General: Yes no CVA tenderness Back/Spine/Pelvis Back: no CVA tenderness Thoracic/Lumbar Spine: No lumbar spinal tenderness Skin Rashes: no rashes Extrem General: Yes no clubbing, cyanosis or edema Right lower extremity: ankle Details: tenderness; no swelling and foot Details: normal to inspection Results Reviewed Results Reviewed: Laboratory Tests 02/03/25 02/03/25 07:53 07:58 WBC 9.6 Hgb 15.9 Hct 48.1 Plt Count 352 ESR 5 Sodium 141 Potassium 3.9 Creatinine 0.99 Estimated GFR > 60 Fasting Glucose 159 H Hemoglobin A1c % 7.6 H Uric Acid 4.8 AST 23 ALT 31 Triglycerides 217 H Cholesterol 170 LDL Cholesterol, Calc 91 HDL Cholesterol 36 L 25-OH Vitamin D Total 39.2 TSH 0.58 Ur Specific [place] 1.020 Urine Protein Negative Urine Glucose (UA) Negative Urine Blood Negative Urine Nitrite Negative Ur Leukocyte Esterase Negative Microalb/Creat Ratio 5.7 Coding Level of Care Code Est Pt Level 4 (76899) Complex EM visit Add On G2211 Diagnoses Type 2 diabetes mellitus without complication, without long-term current use of insulin E11.9 Diabetes mellitus complication status: without complication Diabetes mellitus snf insulin use: without intermission coordinator use Diabetes mellitus type: type 2 Mixed hyperlipidemia E78.2 Idiopathic gout, unspecified chronicity, unspecified site M10.00 Chronicity: unspecified Gout etiology: idiopathic Gout site: unspecified site Vitamin D deficiency E55.9 Erectile dysfunction, unspecified erectile dysfunction type N52.9 Erectile dysfunction type: unspecified Overweight (BMI 25.0-29.9) E66.3 Additional Codes PHQ-9 - 15440 - PHQ-9 Billing: Yes ([id number]) Assessment & Plan Assessment & Plan (1) Diabetes mellitus: Code(s): E11.9 - Type 2 diabetes mellitus without complications Category: Medical Qualifiers: Diabetes mellitus complication status: without complication Diabetes mellitus snf insulin use: without intermission coordinator use Diabetes mellitus type: type 2 Qualified Code(s): E11.9 - Type 2 diabetes mellitus without complications Plan: His HgbA1c was up at 7.6% on his labs done a few days ago (HgbA1c was previously at 7.4% a few months ago) - goal is < 7.0% He is advised that the recent continuing rise in his HgbA1c is likely due to his recent oral Prednisone Rx that he's had to take for his ongoing right foot/ankle pain and now that he is off Prednisone, his blood sugar should start trending down again Reinforced diabetic diet Continue on the same meds for now - Januvia 100 mg QD in AM and Metformin ER 500 mg 2 tablets (1000 mg) BID Will recheck his HgbA1c and FBS in 4 months for follow up (2) Mixed hyperlipidemia: Code(s): E78.2 - Mixed hyperlipidemia Category: Medical Plan: Results of his labs done a few days ago reviewed and discussed with patient Reinforced low cholesterol diet Will recheck his labs and fasting lipids in 4 months for follow up (3) Gout: Code(s): M10.9 - Gout, unspecified Category: Medical Qualifiers: Chronicity: unspecified Gout etiology: idiopathic Gout site: unspecified site Qualified Code(s): M10.00 - Idiopathic gout, unspecified site Plan: His serum uric acid level is now normal at 4.8 mg/dl on his recent labs but patient continues to experience recurrent pain in his right ankle MRI of the ankle done last week revealed (+) edema within the calcaneus of the medial malleolus of uncertain etiology Patient's expressed her concerns about the possibility of an infection in his ankle, based on his recent imaging studies Will start him for now on a trial of oral Cephalexin 500 mg Q 6 hours x 7 days and advised that if his symptoms do not improve at all over the next week, then he likely does not have an infection in his ankle Reinforced low purine diet Continue Colchicine 0.6 mg BID and Allopurinol 800 mg QD Follow up with rheumatology as scheduled He has also been referred to and is scheduled to see podiatry for further evaluation next month Will have him recheck his serum uric acid level in 4 months for follow up (4) Vitamin D deficiency: Code(s): E55.9 - Vitamin D deficiency, unspecified Category: Medical Plan: Continue Vitamin D3 2000 units QD (5) Erectile dysfunction: Code(s): N52.9 - Male erectile dysfunction, unspecified Category: Medical Qualifiers: Erectile dysfunction type: unspecified Qualified Code(s): N52.9 - Male erectile dysfunction, unspecified Plan: Continue Tadalafil 20 mg QD PRN Follow up with urology as scheduled (6) Overweight (BMI 25.0-29.9): Code(s): E66.3 - Overweight Category: Medical Plan: Reinforced diet/exercise as tolerated/lose weight Plan Follow up in 4 months Orders: Orders Hemoglobin A1c 4 Months E11.9 - Type 2 diabetes mellitus without complications Uric Acid 4 Months M10.9 - Gout, unspecified TSH reflex Free T4 4 Months E78.00 - Pure hypercholesterolemia, unspecified UA CC w/rflx Micro + Cult 4 Months R30.0 - Dysuria Vitamin D 25-OH Total 4 Months E55.9 - Vitamin D deficiency, unspecified Comprehensive [place]. Panel Fast 4 Months E78.00 - Pure hypercholesterolemia, unspecified Lipid Panel 4 Months E78.00 - Pure hypercholesterolemia, unspecified Microalbumin, Random (w Creat) 4 Months E11.9 - Type 2 diabetes mellitus without complications Complete Blood Count Auto Diff 4 Months D64.9 - Anemia, unspecified Medications: New cephalexin 500 mg PO Q6H 7 days 28 caps 0RF
== END 2025-02-06 18:05 | disposition home or self-care (01) ==
LOC: HO.HMCH 17:36
PROVIDERS: PCP Internal Medicine; Visit Provider Internal Medicine
DX: E11.9 Type 2 diabetes mellitus without complications (principal); E78.2 Mixed hyperlipidemia; M10.00 Idiopathic gout, unspecified site; E55.9 Vitamin D deficiency, unspecified; N52.9 Male erectile dysfunction, unspecified; E66.3 Overweight

== ENCOUNTER → 2025-02-06 17:35 | Outpatient (BNVA) | payer OTHER, SELFPAY | PROVIDERS: PCP Internal Medicine; Visit Provider Internal Medicine | DX: E11.9 Type 2 diabetes mellitus without complications (principal); E78.2 Mixed hyperlipidemia; M10.00 Idiopathic gout, unspecified site; E55.9 Vitamin D deficiency, unspecified; N52.9 Male erectile dysfunction, unspecified; E66.3 Overweight; Z68.26 Body mass index [BMI] 26.0-26.9, adult; Z79.84 Long term (current) use of oral hypoglycemic drugs; Z79.899 Other long term (current) drug therapy | CPT/HCPCS: 96127; 99212 ==

== ENCOUNTER 2025-02-07 09:36 | Outpatient (AMB) | payer OTHER, SELFPAY ==
--- NOTE | 2025-02-07 09:37 | MHC.OFFVIS ---
Vital Signs 02/07/25 09:42 Height 5 ft 11 in Weight 193 lb 9.054 oz BMI 27.0 BP 102/70 Blood Pressure Location Rt brachial Position Sitting Respiration 18 Pulse 67 Pulse Source Pulse Oximeter Pulse Oximetry (%) 97 Oxygen Delivery Method Room Air Intake Visit Reasons: discuss MRI results Intake Note: Patient presents for MRI results follow up. Rail Bonder Required: Yes Rail Bonder Language: School Librarian Services: Rail Bonder Offered & Declined Rail Bonder Name: Saskia Driscoll Information Interpreted: non-clinical & clinical Line Patroller: Line Patroller Present Accompanied by: Spouse Allergies No Known Allergies Allergy (Verified 02/07/25 09:42) Medication List - Last Reconciled 02/07/25 by Jennifer Sams MD allopurinol 800 mg (4 x 200 mg) PO DAILY 90 days blood sugar diagnostic (FreeStyle Lite Strips) As directed once a day - Dx: E11.9 -- diabetes blood-glucose meter (FreeStyle Lite Meter kit) As directed - Dx: E11.9 -- diabetes cephalexin 500 mg PO Q6H 7 days cholecalciferol (vitamin D3) 50 mcg PO DAILY 90 days colchicine 0.6 mg PO BID diclofenac potassium 50 mg PO DAILY PRN 30 days lancets (FreeStyle Lancets) As directed metformin ER 1,000 mg (2 x 500 mg) PO BID prednisone 5 mg PO DAILY probenecid 500 mg PO BID sitagliptin phosphate (Januvia) 100 mg PO DAILY 90 days tadalafil 20 mg PO DAILY 90 days HPI Comments Details: Patient is a 54-year-old male with diabetes, hypertension, hyperlipidemia and non crystal proven non tophaceous gout here today for follow up Interval History: Patient last seen 01/11/2025 with me. At that time he was following up for his crystal proven non tophaceous gouty arthritis. He had received an injection under ultrasound guidance of his subtalar joint. He had improvement in his pain however continued to have right foot pain involving the Achilles tendon. An MRI of the ankle was ordered which showed tenosynovitis and synovitis of the left ankle. Because of his continued elevated uric acid probenecid was added to his regimen. Today he reports new onset left elbow tenderness and warmth. Rheumatologic History: ddx 2012 Allopurinol 11/2024 Initial history by me: Patient has been having intermittent gout flares with a past 13 years. His gout is currently managed by his PCP. Originally he was started on allopurinol 300 mg but this was not up titrated and his uric acid remain elevated and so he was subsequently switched to febuxostat. He denies any adverse reactions while being on allopurinol Currently he has been having a flare of his gout that started in August. Initially started with right 1st MTP pain and swelling and this now progressed to involve the entire foot including the ankle. Was given a short taper but this did not improve his symptoms this time. Of note he has had flares involving his knees, and the opposite foot in the past. Risk Factors for Gout HTN Denies: Family history of gout, CKD, EtOH use and use of medications: low-dose ASA, diuretics, cyclosporine Current Rheumatology Medication(s): Allopurinol 800mg daily Prednisone 5mg Probenecid 250 mg twice a day Colchicine 0.6mg bid [facility] Medical History (Updated 02/07/25 @ 10:10 by Jennifer Sams MD) Inflammatory arthritis Encounter for monitoring allopurinol therapy Erectile dysfunction Gout Obesity (BMI 30-39.9) Mixed hyperlipidemia Diabetes mellitus Surgical History History of eye surgery Family History Father No problems noted. 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 Cognitive needs: No Hearing needs: No Vision needs: No Review of Systems Const Details: Review of Systems Constitutional: Denies fever, chills, weight loss ENT: Denies vision changes, eye pain or eye redness, dental caries, dry mouth GI: Denies nausea, vomiting, diarrhea, abdominal pain, change in BM Pulm: Denies SOB, MIGUEL, hemoptysis, wheezing Cards: Denies chest pain, palpitations Skin: Denies Raynaud's, rash, nail changes, photosensitivity, HEAD ANIMAL TRAINER: Denies headaches, weakness, paresthesias, recurrent falls MSK: as per HPI All other systems reviewed and are unremarkable except noted above Physical Exam Vital Signs: Last Vital Signs Pulse 67 02/07/25 09:42 Resp 18 02/07/25 09:42 BP 102/70 02/07/25 09:42 Pulse Ox 97 02/07/25 09:42 Oxygen Delivery Method Room Air 02/07/25 09:42 BMI result Body Mass Index 27.0 Vital signs reviewed Physical Examination CONSTITUITIONAL Patient alert and cooperative. Well appearing and in no apparent painful distress HEENT Conjunctiva and sclera clear. ?Pupils equal round and reactive to light. ?No lymphadenopathy. ? CHEST/RESPIRATORY SYSTEM Normal respiratory effort and able to speak in complete sentences. ?Clear to auscultation bilaterally. ?No crackles, rales, rhonchi, wheezes heard. CARDIAC SYSTEM Regular rate and rhythm. ?S1 and S2 heard no murmurs. ?Radial pulses intact bilaterally MSK Hands: ?Good warehouse attendant strength bilaterally. No deformities noted. ?No synovitis noted to the MCPs, PIPs or DIPs. ?No tenderness to palpation of these joints. Wrists: ?Full range of motion at the wrists without pain. ?No tenderness to palpation or synovitis noted to the wrists. Elbows: Left elbow with warmth, erythema and tenderness to palpation Shoulders: Full range of motion without pain. No tenderness, weakness, swelling, increased warmth or erythema. Hips: Full range of motion without pain. Hip bursa: No tenderness to palpation Knees: ?Full range of motion. ?No tenderness, swelling, increased warmth or erythema.?No effusion or crepitations Ankles: Tibiotalar and subtalar joint without swelling or tenderness to palpation. Insertion of the Achilles tendon is swollen and tender to palpation Feet: ?Negative squeeze test bilaterally Tender points:?No tenderness to palpation of the bilateral trapezius, supraspinatus, greater trochanters, anterior costochondral junctions, bilateral gluteal areas, bilateral suboccipital muscle insertions SKIN Skin intact without rashes. No tophi noted Results Reviewed Results Reviewed: Laboratory Tests 02/03/25 07:58 WBC 9.6 RBC 5.54 Hgb 15.9 Hct 48.1 Plt Count 352 ESR 5 Sodium 141 Potassium 3.9 Chloride 105 Carbon Dioxide 26 BUN 17 H Creatinine 0.99 Uric Acid 4.8 AST 23 ALT 31 Alkaline Phosphatase 91 C-Reactive Protein 0.12 Assessment & Plan Assessment & Plan (1) Gout: Code(s): M10.9 - Gout, unspecified Category: Medical Qualifiers: Chronicity: unspecified Gout etiology: idiopathic Gout site: unspecified site Qualified Code(s): M10.00 - Idiopathic gout, unspecified site Plan: #Gout Patient is a 54-year-old male with non crystal proven gout here today for follow up. Patient has extremely difficult to control gout. His uric acid is finally at goal but he continues to have a right foot pain and tenderness to palpation of the Achilles tendon as well as new left elbow tenderness and erythema. This is behaving very much like an inflammatory arthritis picture. Discussed the case with Dr. Harleen Daniel of [facility] and she recommended adding methotrexate. We will rearrange his regimen to optimize his pill burden. Patient does not want an elbow injection today. Plan - Decrease allopurinol to 400 mg daily - Stop colchicine - Increase probenecid to 500mg bid - Prednisone 5mg daily - Start methotrexate 15mg PO weekly - Folic acid 1 mg daily - RTC 3 months - Labs before visit: CBC, CMP, ESR, CRP, UA (2) Encounter for monitoring allopurinol therapy: Code(s): Z51.81 - Encounter for therapeutic drug level monitoring; Z79.899 - Other prison (current) drug therapy Category: Medical Plan: #Long-term Current Use of Allopurinol Risks and benefits of allopurinol discussed with patient Benefits include decreased gout flares, remission of gout and reduction of tophi Risks include allopurinol hypersensitivity syndrome which is a severe cutaneous adverse reaction associated with allopurinol use particularly in patients who are HLA B*5801 positive, increased transaminases, GI upset including diarrhea, nausea and vomiting, and other dermatologic manifestations. (3) Encounter for methotrexate monitoring: Code(s): Z51.81 - Encounter for therapeutic drug level monitoring; Z79.631 - assistant terminal manager (current) use of antimetabolite agent Plan: #Long-term Current Use of Methotrexate Discussed with patient the benefits and risks of methotrexate for managing their rheumatic condition Benefits include reduced pain, reduced mortality, maintenance of remission and reduction of flares Risks include oral ulcers, photosensitivity, hepatotoxicity, hematologic toxicity, pneumonitis, flu-like symptoms (especially day after administration), nodulosis, lymphomas ? Limit alcohol and avoid Bactrim ? Monitoring: ?CBC, BMP, LFTs every 3-4 months and hepatitis serologies as needed (4) skilled nursing (current) use of systemic steroids: Code(s): Z79.52 - assistant terminal manager (current) use of systemic steroids Plan: #Long-term Use of Steroids Discussed with patient the risks and benefits of steroid for managing the rheumatic condition Benefits include: - Reduced pain, improved mobility, increased participation in activities, and decreased progression of disease Risks include: - GI upset, potential ultrasound worsening or formation (especially in patients > 65 years old), elevated blood pressure/worsening hypertension, elevated blood sugar/worsening diabetes control, worsening of bone density, elevated lipids/worsening triglycerides, cataract formation, weight gain Recommended using proton pump inhibitors (PPIs) for the duration of steroid use to reduce the risk of gastric ulcers and vitamin-D daily to reduce the risk of osteoporosis Labs checked: ?A1c, T spot, hepatitis-B and C serologies Pneumocystis jiroveci prophylaxis: ?Patient with risk factors including steroids greater than 50 mg for more than 30 days, age greater than 60 years, and lung involvement from underlying rheumatic disease requires prophylaxis and will be given so Plan I spent 30 minutes reviewing the record and labs, taking a history, examining the patient, discussing the treatment plan, ordering diagnostic work up, completing LA paperwork and documenting in the medical record Orders: Orders Complete Blood Count Auto Diff 3 Months M10.00 - Idiopathic gout, unspecified site, M19.90 - Unspecified osteoarthritis, unspecified site C Reactive Protein 3 Months M10.00 - Idiopathic gout, unspecified site, M19.90 - Unspecified osteoarthritis, unspecified site Comprehensive Met. Panel 3 Months M10.00 - Idiopathic gout, unspecified site, M19.90 - Unspecified osteoarthritis, unspecified site Erythrocyte Sedimentation Rate 3 Months M10.00 - Idiopathic gout, unspecified site, M19.90 - Unspecified osteoarthritis, unspecified site Uric Acid 3 Months M10.00 - Idiopathic gout, unspecified site, M19.90 - Unspecified osteoarthritis, unspecified site Medications: New folic acid 1 mg PO DAILY 90 tabs 1RF M19.90 - Unspecified osteoarthritis, unspecified site methotrexate sodium 15 mg (6 x 2.5 mg) PO QWEEK 78 tabs 1RF 90 days M19.90 - Unspecified osteoarthritis, unspecified site Changed From probenecid Take 1/2 tablet twice a day for 1 week then 1 tablet twice a day 500 mg PO BID 180 tabs 1RF M10.00 - Idiopathic gout, unspecified site To probenecid 500 mg PO BID 180 tabs 1RF M10.00 - Idiopathic gout, unspecified site From allopurinol 800 mg (4 x 200 mg) PO DAILY 90 days 360 tabs 1RF M10.00 - Idiopathic gout, unspecified site To allopurinol 400 mg (2 x 200 mg) PO DAILY 180 tabs 1RF 90 days M10.00 - Idiopathic gout, unspecified site Refilled prednisone 5 mg PO DAILY 90 tabs 1RF M10.00 - Idiopathic gout, unspecified site Discontinued diclofenac potassium Take with food Discontinued Reason: Doctor's Order 50 mg PO DAILY 30 days PRN 30 tabs 0RF pain colchicine Discontinued Reason: Doctor's Order 0.6 mg PO BID 180 tabs 1RF M10.00 - Idiopathic gout, unspecified site Coding Level of Care Code Est Pt Level 4 (57850) Complex EM visit Add On G2211 Diagnoses Idiopathic gout, unspecified chronicity, unspecified site M10.00 Chronicity: unspecified Gout etiology: idiopathic Gout site: unspecified site Encounter for monitoring allopurinol therapy Z51.81; Z79.899 Encounter for methotrexate monitoring Z51.81; Z79.631 assistant terminal manager (current) use of systemic steroids Z79.52
[2025-02-07 09:42] VITALS: BP 102/70; PULSE 67; RESP 18; O2SAT 97; BMI 27.0
--- OUTSIDE RECORDS SUMMARY | 2025-02-07 10:36 | XMS_ITS | Clinical Summary ---
Author Organization 175 [facility] Address [address] [place] [address] Phone Care Team Providers Care Field Aide Name Role Phone Juan Ngo MD Primary Care Provider Social History Tobacco Use Types Packs/Day Years Used Date Smoking Tobacco: Never Assessed Sex and Gender Information Value Date Recorded Sex Assigned at Not on file Legal Sex Male 7:34 PM EST Gender Identity Not on file Sexual Orientation Not on file Plan of Treatment Upcoming Encounters Date Type Department Care Team ([facility] st Contact Info) Description 03/14/2025 1:30 PM EDT Consult Orthopedic Surgery [place] [id number] [phone] Kvng Azar, DPM [address] [address] Health Maintenance Due Date Last Done Comments [...] age to complete this [place] [address] Care Teams Field Aide Relationship Specialty Start Date End Date Juan Ngo MD [address] [place] [address] [address] [place], [place] PCP - General Internal Medicine 01/19/25
== END 2025-02-07 10:18 | disposition home or self-care (01) ==
LOC: HO.RHE 09:37
PROVIDERS: PCP Internal Medicine; Visit Provider Student in an Organized Health Care Education/Training Program
DX: M10.00 Idiopathic gout, unspecified site (principal); Z51.81 Encounter for therapeutic drug level monitoring; Z79.899 Other long term (current) drug therapy; Z79.631 Long term (current) use of antimetabolite agent; Z79.52 Long term (current) use of systemic steroids
CPT/HCPCS: 99214; G2211

== ENCOUNTER → 2025-02-07 09:36 | Outpatient (BNVA) | payer OTHER, SELFPAY | PROVIDERS: PCP Internal Medicine; Visit Provider Student in an Organized Health Care Education/Training Program | DX: M10.00 Idiopathic gout, unspecified site (principal); M19.90 Unspecified osteoarthritis, unspecified site; Z51.81 Encounter for therapeutic drug level monitoring; Z79.52 Long term (current) use of systemic steroids; Z79.631 Long term (current) use of antimetabolite agent; Z79.899 Other long term (current) drug therapy | CPT/HCPCS: 99212 ==

== ENCOUNTER 2025-02-26 10:09 | Emergency (ER) | payer OTHER, SELFPAY ==
--- NOTE | ~2025-02-26 | XR_ITS ---
CLINICAL HISTORY: foot pain swelling 3 view left foot Comparison: None Findings: No fractures or dislocations. No significant loss of joint space, osteophytes, or erosions. No ankle effusion. No radiopaque foreign body. IMPRESSION: 1. No acute findings. This document has been electronically signed by: Julio Jenkins MD on 02/26/2025 12:12:49
--- NOTE | ~2025-02-26 | XR_ITS ---
CLINICAL HISTORY: L ankle pain hx gout 4 view left ankle Comparison: None Findings: No acute fractures. Ankle mortise intact. No significant loss of joint space, osteophytes, or erosions. No ankle effusion. No radiopaque foreign body. IMPRESSION: 1. No acute findings. No suspicious erosions This document has been electronically signed by: Julio Jenkins MD on 02/26/2025 12:14:22
[2025-02-26 10:11] VITALS: BP 131/78; PULSE 55; RESP 17; TEMP 36.6; O2SAT 98; BMI 26.1
--- NOTE | 2025-02-26 11:26 | ED_ITS ---
HPI - Extremity Injury (Lower) General Chief Complaint: Extremity Injury, Lower Stated Complaint: left leg pain Time Seen by Provider: 02/26/25 13:02 Source: patient and family (Patient's interpreted) Mode of arrival: ambulatory Limitations: language barrier History of Present Illness ED Provider: HPI Narrative: 55-year-old male with history of gout, currently on multiple medications including oxycodone, steroids, allopurinol, probenecid, presenting with left ankle pain worse in the past 3 days no fevers or chills, family and he presented to the ER wondering if this is a gouty arthritis. Related Data Home Medications ?Medication ?Instructions ?Recorded ?Confirmed lancets 28 gauge (FreeStyle #100 ea 11/28/20 02/07/25 Lancets) Previous Rx's ?Medication ?Instructions ?Recorded blood sugar diagnostic (FreeStyle #100 ea 11/29/21 Lite Strips) blood-glucose meter (FreeStyle #1 ea 01/30/23 Lite Meter kit) tadalafil 20 mg tablet 20 mg PO DAILY sexual activity 90 01/19/24 days #90 tabs cholecalciferol (vitamin D3) 50 50 mcg PO DAILY 90 days #90 caps 03/11/24 mcg (2,000 unit) capsule metformin 500 mg tablet,extended 1,000 mg (2 x 500 mg) PO BID #360 06/12/24 release 24 hr tabs sitagliptin phosphate 100 mg 100 mg PO DAILY 90 days #90 tabs 10/03/24 tablet (Januvia) allopurinol 200 mg tablet 400 mg (2 x 200 mg) PO DAILY 90 02/07/25 days #180 tabs cephalexin 500 mg capsule 500 mg PO Q6H 7 days #28 caps 02/07/25 folic acid 1 mg tablet 1 mg PO DAILY #90 tabs 02/07/25 methotrexate sodium 2.5 mg tablet 15 mg (6 x 2.5 mg) PO QWEEK 90 02/07/25 days #78 tabs prednisone 5 mg tablet 5 mg PO DAILY #90 tabs 02/07/25 probenecid 500 mg tablet 500 mg PO BID #180 tabs 02/07/25 Allergies Allergy/AdvReac Type Severity Reaction Status Date / Time No Known Allergies Allergy Verified 02/26/25 10:13 Review of Systems 2 Constitutional: Constitutional: Reports as per HPI PMFSH Past Medical History Medical History (Updated 02/26/25 @ 13:41 by Demetrius Jeffries DO) Inflammatory arthritis Encounter for monitoring allopurinol therapy Erectile dysfunction Gout Obesity (BMI 30-39.9) Mixed hyperlipidemia Diabetes mellitus Surgical History History of eye surgery Family History Family History Father No problems noted. 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 Cognitive needs: No Hearing needs: No Vision needs: No Physical Exam 2 Vital Signs: Vital Signs: Last Vital Signs Temp 98 F 02/26/25 10:11 Pulse 55 02/26/25 10:11 Resp 17 02/26/25 10:11 BP 131/78 02/26/25 10:11 Pulse Ox 98 02/26/25 10:11 O2 Del Method Room Air 02/26/25 10:11 BMI result Body Mass Index 26.1 Const: Other: Alert and oriented inpatient x4, speak [place] Korean, understands some Namibian and his helps Full range of motion of both knees, proximal distal compartments are soft, exam of right ankle is unremarkable, left ankle examination with tenderness along the Achilles tendon and Achilles insertion to the calcaneus, no tenderness over the medial or lateral joint, distal pulses intact, no tenderness along the plantar fascia, no effusion of the ankle Course Course Course Narrative: This is a Rapid Medical Exam performed in triage by Monica Lindo PA-C. Full HPI, ROS and PE to be performed by primary ED provider. 85-year-old South Korean-speaking male with a past medical history of gout, HLD, diabetes presenting to the ED c/o atraumatic left foot/ankle pain and swelling x 3 days with inability to ambulate secondary to pain. Denies fever, chills. Admits symptoms feel similar to prior gout attacks in the past. Patient management rheumatology for his complicated gout, on multiple medications PE: + foot and ankle with mild swelling and reproducible tenderness. No erythema/warmth. Neurovascularly intact. No pitting edema. No calf tenderness Plan: X-ray, labs Medical Decision Making Medical Decision Making [facility] Narrative: Patient's physical examination is consistent with Achilles tendinitis, see my discharge instructions, x-rays without any fractures, no physical exam findings to suspect gouty arthritis or septic arthritis of the ankle, we will use boot for support and we will give some pain medications and re-dose steroids. Differential Diagnosis Differential Diagnoses: The differential diagnosis associated with the presentation includes Septic arthritis, inflammatory arthritis, cellulitis, DVT, arterial insufficiency, tendonitis Admission/Observation Consideration of admission/observation: Escalation of care including admission/observation considered Lab Data [facility] Lab Attestation statement: I reviewed the patient's lab results. 02/26/25 12:01 02/26/25 12:01 Labs: Lab Results 02/26/25 Range/Units 12:01 WBC 8.4 (4.8-10.8) X10*3/uL RBC 5.22 (4.60-5.80) X10*6/uL Hgb 14.9 (14.0-18.0) g/dl Hct 45.0 (42.0-52.0) % MCV 86.2 (80.0-98.0) fL MCH 28.5 (27.0-33.0) pg MCHC 33.1 (31.0-36.0) g/dl RDW 13.3 (11.0-16.0) % Plt Count 308 (160-400) X10*3/uL MPV 9.5 (9.4-12.4) fL Immature Gran % (Auto) 0.4 (0.0-0.4) % Neut % (Auto) 67.1 (45-73) % Lymph % (Auto) 21.2 (20-40) % [place] % (Auto) 7.6 (2-11) % Eos % (Auto) 3.0 (0-4) % Baso % (Auto) 0.7 (0-2) % Lymph # (Auto) 1.8 (1.2-4.9) X10*3/uL [place] # (Auto) 0.6 (0.1-1.2) X10*3/uL Eos # (Auto) 0.3 (0.0-0.4) X10*3/uL Baso # (Auto) 0.1 (0.0-0.2) X10*3/uL Abs Immat Gran (auto) 0.03 (0.00-0.03) X10*3/uL Absolute Neuts (auto) 5.7 (2.0-8.3) x10*3/uL Absolute Nucleated RBC 0.000 (0.0-0.012) X10*3/uL Nucleated RBC % (auto) 0.0 (0.0-0.2) /100WBC ESR 3 (0-15) MM/HR Sodium 140 (135-145) mmol/L Potassium 4.2 (3.3-5.1) mmol/L Chloride 106 (96-108) mmol/L Carbon Dioxide 28 (22-29) mmol/L Anion Gap 10 L (12-20) BUN 13 (9-16) mg/dL Creatinine 1.02 (0.5-1.4) mg/dL Estim Creat Clear Calc 86.4 Estimated GFR > 60 Random Glucose 154 H (60-115) mg/dL Uric Acid 2.8 L (3.4-7.0) mg/dL Calcium 9.0 (8.4-10.2) mg/dL Total Bilirubin 0.7 (0.0-1.0) mg/dL Direct Bilirubin 0.2 (0.0-0.5) mg/dL AST 24 (5-37) U/L ALT 29 (0-40) U/L Alkaline Phosphatase 72 (39-117) U/L C-Reactive Protein 0.20 (< or = 0.50) mg/dL Total Protein 7.2 (6.5-8.0) g/dL Albumin 4.4 (3.5-5.0) g/dL Independent Interpretation I performed an independent interpretation of an: Plain X-Ray (No fractures, no dislocations) Discharge Plan Discharge Clinical Impression: Achilles tendinosis of right ankle Patient Disposition: Home, Self-Care Additional Instructions: Use boot to ambulate, please look up Achilles tendon stretching exercises do these in the morning and before bedtime, big bag of ice to the back of the leg right over the Achilles insertion on the heel bone, there is no evidence for infection, x-rays without fractures, blood work reassuring, also please look on [employer] we will go to a pharmacy and get 3 8th of an inch Achilles tendon heel lift, you can start using it once his symptoms improved somewhat with boot, usually it has a palpable air and you can slowly peel it until the symptoms improve. 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 Any other issues or concerns come back to the ER Prescriptions: No Action (DME) lancets [FreeStyle Lancets] 28 gauge misc See Rx Instructions .ROUTE .MEDSUPPLY Qty: 100 Rx Instructions: As directed (DME) blood-glucose meter [FreeStyle Lite Meter] Kit See Rx Instructions .ROUTE .MEDSUPPLY Qty: 1 0RF Rx Instructions: As directed - Dx: E11.9 -- diabetes cholecalciferol (vitamin D3) 50 mcg (2,000 unit) capsule 50 mcg PO DAILY 90 Days Qty: 90 3RF metformin 500 mg tablet extended release 24 hr 1,000 mg PO BID Qty: 360 1RF Januvia 100 mg tablet 100 mg PO DAILY 90 Days Qty: 90 3RF (DME) FreeStyle Lite Strips Strip See Rx Instructions .ROUTE .MEDSUPPLY Qty: 100 5RF Rx Instructions: As directed once a day - Dx: E11.9 -- diabetes tadalafil 20 mg tablet 20 mg PO DAILY 90 Days Qty: 90 1RF cephalexin 500 mg capsule 500 mg PO Q6H 7 Days Qty: 28 0RF probenecid 500 mg tablet 500 mg PO BID Qty: 180 1RF allopurinol 200 mg tablet 400 mg PO DAILY 90 Days Qty: 180 1RF methotrexate sodium 2.5 mg tablet 15 mg PO QWEEK 90 Days Qty: 78 1RF folic acid 1 mg tablet 1 mg PO DAILY Qty: 90 1RF prednisone 5 mg tablet 5 mg PO DAILY Qty: 90 1RF Print Language: South Korean
[2025-02-26 12:11] LABS: MANUAL DIFF FLAG NO
[2025-02-26 12:13] LABS: Basophils Absolute Auto 0.1 X10*3/uL (0.0-0.2); Basophils Percent Auto 0.7 % (0-2); Eosinophils Absolute Auto 0.3 X10*3/uL (0.0-0.4); Hemoglobin 14.9 g/dl (14.0-18.0); Imm Gran Abs Auto 0.03 X10*3/uL (0.00-0.03); Imm Gran Pct Auto 0.4 % (0.0-0.4); Lymphocytes Absolute Auto 1.8 X10*3/uL (1.2-4.9); Lymphocytes Percent Auto 21.2 % (20-40); Mean Corpuscular HGB Conc 33.1 g/dl (31.0-36.0); Mean Corpuscular Hemoglobin 28.5 pg (27.0-33.0); Mean Corpuscular Volume 86.2 fL (80.0-98.0); Mean Platelet Volume 9.5 fL (9.4-12.4); Monocytes Absolute Auto 0.6 X10*3/uL (0.1-1.2); Monocytes Percent Auto 7.6 % (2-11); Neutrophils Absolute Auto 5.7 x10*3/uL (2.0-8.3); Neutrophils Percent Auto 67.1 % (45-73); Platelet Count 308 X10*3/uL (160-400); Red Blood Count 5.22 X10*6/uL (4.60-5.80); Red Cell Distribution Width 13.3 % (11.0-16.0); White Blood Count 8.4 X10*3/uL (4.8-10.8)
[2025-02-26 12:27] LABS: Alanine Aminotransferase 29 U/L (0-40); Albumin Level 4.4 g/dL (3.5-5.0); Alkaline Phosphatase 72 U/L (39-117); Anion Gap 10 (12-20); Aspartate Amino Transferase 24 U/L (5-37); Bilirubin Direct 0.2 mg/dL (0.0-0.5); Bilirubin Total 0.7 mg/dL (0.0-1.0); Blood Urea Nitrogen 13 mg/dL (9-16); Carbon Dioxide 28 mmol/L (22-29); Chloride 106 mmol/L (96-108); Creatinine Clr Calc Pharmacy 86.4; Estimated Glomerular Filt Rate > 60; Glucose Random 154 mg/dL (60-115); Potassium 4.2 mmol/L (3.3-5.1); Sodium 140 mmol/L (135-145); Total Protein 7.2 g/dL (6.5-8.0); Uric Acid 2.8 mg/dL (3.4-7.0)
--- OUTSIDE RECORDS SUMMARY | 2025-02-26 12:41 | XMS_ITS | Clinical Summary ---
Author Organization 175 [facility] Address [address] [place] [address] Phone Care Team Providers Care Radiation Technician Name Role Phone Juan Ngo MD Primary Care Provider Social History Tobacco Use Types Packs/Day Years Used Date Smoking Tobacco: Never Assessed Sex and Gender Information Value Date Recorded Sex Assigned at Not on file Legal Sex Male 7:34 PM EST Gender Identity Not on file Sexual Orientation Not on file Plan of Treatment Upcoming Encounters Date Type Department Care Team ([facility] st Contact Info) Description 03/14/2025 1:30 PM EDT Consult Orthopedic Surgery [place] [id number] [phone] Kvng Azar, DPM [address] [address] Health Maintenance Due Date Last Done Comments [...] age to complete this topic Insurance PLAN Care Teams Radiation Technician Relationship Specialty Start Date End Date Juan Ngo MD [address] [place] [address] Dr [address] [place], [place] PCP - General Internal Medicine 01/19/25
[2025-02-26 12:55] LABS: Erythrocyte Sedimentation Rate 3 MM/HR (0-15)
[2025-02-26 13:58] VITALS: BP 108/78; PULSE 67; RESP 16; TEMP 37.1; O2SAT 98
[2025-02-26] MEDS: dexAMETHasone 2 MG TABLET 10 MG PO (14:11)
[2025-02-26] MEDS: oxyCODONE HCl Immed Release 5 MG TABLET 10 MG PO (14:11)
== END 2025-02-26 14:14 | disposition home or self-care (01) ==
PROVIDERS: Physician Assistant; Emergency Provider Emergency Medicine; PCP Internal Medicine
DX: M76.62 Achilles tendinitis, left leg (principal); M25.572 Pain in left ankle and joints of left foot; E11.9 Type 2 diabetes mellitus without complications; Z79.84 Long term (current) use of oral hypoglycemic drugs; Z79.899 Other long term (current) drug therapy
CPT/HCPCS: 36415; 73610; 73630; 80048; 80076; 84550; 85025; 85652; 86140; 99283; J8540

== ENCOUNTER → 2025-02-26 11:32 | Outpatient (BNV) | payer OTHER, SELFPAY | PROVIDERS: PCP Internal Medicine; Visit Provider Radiology Vascular & Interventional Radiology | DX: M25.572 Pain in left ankle and joints of left foot (principal); R22.42 Localized swelling, mass and lump, left lower limb | CPT/HCPCS: 73610; 73630 ==

== ENCOUNTER 2025-03-02 12:57 | Outpatient (AMB) | payer OTHER, SELFPAY ==
--- NOTE | 2025-03-02 13:17 | A.OFFVIS_ITS ---
Vital Signs 03/02/25 13:24 Height 5 ft 10 in Weight 192 lb 7.417 oz BMI 27.6 BP 115/80 Blood Pressure Location Lt brachial Position Sitting Respiration 18 Pulse 96 Pulse Source Pulse Oximeter Pulse Oximetry (%) 96 Oxygen Delivery Method Room Air Intake Visit Reasons: Left ankle pain/ swelling Intake Note: Patient presents for left ankle pain and swelling. Electronic Equipment Repairer Required: Yes Electronic Equipment Repairer Language: Education Adviser Services: Electronic Equipment Repairer Offered & Declined Electronic Equipment Repairer Name: Maxim Maradiaga Information Interpreted: non-clinical & clinical Inserting Machine Operator: Inserting Machine Operator Present (Maxim Maradiaga) Accompanied by: Daughter Allergies No Known Allergies Allergy (Verified 03/02/25 13:23) Medication List - Last Reconciled 03/02/25 by Jennifer Sams MD allopurinol 400 mg (2 x 200 mg) PO DAILY 90 days blood sugar diagnostic (FreeStyle Lite Strips) As directed once a day - Dx: E11.9 -- diabetes blood-glucose meter (FreeStyle Lite Meter kit) As directed - Dx: E11.9 -- diabetes cephalexin 500 mg PO Q6H 7 days cholecalciferol (vitamin D3) 50 mcg PO DAILY 90 days folic acid 1 mg PO DAILY lancets (FreeStyle Lancets) As directed metformin ER 1,000 mg (2 x 500 mg) PO BID methotrexate sodium 15 mg (6 x 2.5 mg) PO QWEEK 90 days prednisone 5 mg PO DAILY probenecid 500 mg PO BID sitagliptin phosphate (Januvia) 100 mg PO DAILY 90 days tadalafil 20 mg PO DAILY 90 days HPI Comments Details: Patient is a 54-year-old male with diabetes, hypertension, hyperlipidemia and non crystal proven non tophaceous gout here today for follow up Interval History: Patient last seen 02/07/25 with me. At that time he was having an urgent visit for left elbow tenderness and warmth. Given his continued inflammatory arthri tic symptoms secondary to gout methotrexate was added to his regimen. He is here today for an urgent visit again for left foot pain. Patient states that he noticed swelling to his left foot over the past week Rheumatologic History: ddx 2011 Allopurinol 11/2024 Initial history by me: Patient has been having intermittent gout flares with a past 13 years. His gout is currently managed by his PCP. Originally he was started on allopurinol 300 mg but this was not up titrated and his uric acid remain elevated and so he was subsequently switched to febuxostat. He denies any adverse reactions while being on allopurinol Currently he has been having a flare of his gout that started in August. Initially started with right 1st MTP pain and swelling and this now progressed to involve the entire foot including the ankle. Was given a short taper but this did not improve his symptoms this time. Of note he has had flares involving his knees, and the opposite foot in the past. Risk Factors for Gout HTN Denies: Family history of gout, CKD, EtOH use and use of medications: low-dose ASA, diuretics, cyclosporine Current Rheumatology Medication(s): Allopurinol 400mg daily Prednisone 5mg Probenecid 500 mg twice a day Colchicine 0.6mg bid [facility] Medical History (Updated 02/27/25 @ 00:00 by Dannie Varela) Inflammatory arthritis Encounter for monitoring allopurinol therapy Erectile dysfunction Gout Obesity (BMI 30-39.9) Mixed hyperlipidemia Diabetes mellitus Surgical History History of eye surgery Family History Father No problems noted. 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 Cognitive needs: No Hearing needs: No Vision needs: No Review of Systems Const Details: Review of Systems Constitutional: Denies fever, chills, weight loss ENT: Denies vision changes, eye pain or eye redness, dental caries, dry mouth GI: Denies nausea, vomiting, diarrhea, abdominal pain, change in BM Pulm: Denies SOB, MIGUEL, hemoptysis, wheezing Cards: Denies chest pain, palpitations Skin: Denies Raynaud's, rash, nail changes, photosensitivity, TELEVISION CABLE INSTALLER: Denies headaches, weakness, paresthesias, recurrent falls MSK: as per HPI All other systems reviewed and are unremarkable except noted above Physical Exam Vital Signs: Last Vital Signs Pulse 96 03/02/25 13:24 Resp 18 03/02/25 13:24 BP 115/80 03/02/25 13:24 Pulse Ox 96 03/02/25 13:24 Oxygen Delivery Method Room Air 03/02/25 13:24 BMI result Body Mass Index 27.6 Vital signs reviewed Physical Examination Swelling and erythema noted to the left foot involving the entire dorsum of the foot. Ankle not included which was nontender to palpation Results Reviewed Results Reviewed: Laboratory Tests 02/03/25 02/26/25 07:58 12:01 WBC 8.4 RBC 5.22 Hgb 14.9 Hct 45.0 Plt Count 308 ESR 3 Sodium 140 Potassium 4.2 Chloride 106 Carbon Dioxide 28 BUN 13 Creatinine 1.02 Uric Acid 4.8 2.8 L AST 24 ALT 29 Alkaline Phosphatase 72 C-Reactive Protein 0.20 Assessment & Plan Assessment & Plan (1) Gout: Code(s): M10.9 - Gout, unspecified Category: Medical Qualifiers: Gout site: unspecified site Gout etiology: idiopathic Chronicity: unspecified Qualified Code(s): M10.00 - Idiopathic gout, unspecified site Plan: #Gout Patient is a 54-year-old male with non crystal proven gout here today for follow up. Patient has extremely difficult to control gout. His uric acid is finally at goal. Here today for an acute gout flare despite uric acid being 2.8. Plan - Prednisone taper: 40 mg for 10 days then 30 mg for 10 days then 20 mg for 10 days and 10 mg for 10 days then restart his home 5 mg dose - Probenecid 500mg bid - Allopurinol 400mg daily - Methotrexate 15mg PO weekly - Folic acid 1 mg daily - RTC 3 months - Labs before visit: CBC, CMP, ESR, CRP, UA, RF and CCP (2) Encounter for monitoring allopurinol therapy: Code(s): Z51.81 - Encounter for therapeutic drug level monitoring; Z79.899 - Other senior care (current) drug therapy Category: Medical Plan: #Long-term Current Use of Allopurinol Risks and benefits of allopurinol discussed with patient Benefits include decreased gout flares, remission of gout and reduction of tophi Risks include allopurinol hypersensitivity syndrome which is a severe cutaneous adverse reaction associated with allopurinol use particularly in patients who are HLA [id number] positive, increased transaminases, GI upset including diarrhea, nausea and vomiting, and other dermatologic manifestations. (3) Encounter for methotrexate monitoring: Code(s): Z51.81 - Encounter for therapeutic drug level monitoring; Z79.631 - correction (current) use of antimetabolite agent Plan: #Long-term Current Use of Methotrexate Discussed with patient the benefits and risks of methotrexate for managing their rheumatic condition Benefits include reduced pain, reduced mortality, maintenance of remission and reduction of flares Risks include oral ulcers, photosensitivity, hepatotoxicity, hematologic toxicity, pneumonitis, flu-like symptoms (especially day after administration), nodulosis, lymphomas ? Limit alcohol and avoid Bactrim ? Monitoring: ?CBC, BMP, LFTs every 3-4 months and hepatitis serologies as needed (4) correction (current) use of systemic steroids: Code(s): Z79.52 - correction (current) use of systemic steroids Plan: #Long-term Use of Steroids Discussed with patient the risks and benefits of steroid for managing the rheumatic condition Benefits include: - Reduced pain, improved mobility, increased participation in activities, and decreased progression of disease Risks include: - GI upset, potential ultrasound worsening or formation (especially in patients > 65 years old), elevated blood pressure/worsening hypertension, elevated blood sugar/worsening diabetes control, worsening of bone density, elevated lipids/worsening triglycerides, cataract formation, weight gain Recommended using proton pump inhibitors (PPIs) for the duration of steroid use to reduce the risk of gastric ulcers and vitamin-D daily to reduce the risk of osteoporosis Labs checked: ?A1c, T spot, hepatitis-B and C serologies Pneumocystis jiroveci prophylaxis: ?Patient with risk factors including steroids greater than 50 mg for more than 30 days, age greater than 60 years, and lung involvement from underlying rheumatic disease requires prophylaxis and will be given so Plan I spent 42 minutes reviewing the record and labs, taking a history, examining the patient, discussing the treatment plan, ordering diagnostic work up, completing LA paperwork and documenting in the medical record Orders: Orders Rheumatoid Factor Today M19.90 - Unspecified osteoarthritis, unspecified site Cyclic Citrullinated Peptide Today M19.90 - Unspecified osteoarthritis, unspecified site Medications: New prednisone Take 4 tablets for 10 days then 3 tablets for 10 days then 2 tablets for 10 days then 1 tablet for 10 days then stop and restart your regular prednisone dose 10 mg PO DIRECTED 100 tabs 0RF M10.00 - Idiopathic gout, unspecified site Coding Level of Care Code Est Pt Level 5 (47104) Complex EM visit Add On G2211 Diagnoses Idiopathic gout, unspecified chronicity, unspecified site M10.00 Gout site: unspecified site Gout etiology: idiopathic Chronicity: unspecified Encounter for monitoring allopurinol therapy Z51.81; Z79.899 Encounter for methotrexate monitoring Z51.81; Z79.631 correction (current) use of systemic steroids Z79.52
[2025-03-02 13:24] VITALS: BP 115/80; PULSE 96; RESP 18; O2SAT 96; BMI 27.6
--- OUTSIDE RECORDS SUMMARY | 2025-03-02 15:02 | XMS_ITS | Clinical Summary ---
Author Organization 175 [facility] Address [address] [place] [address] Phone Care Team Providers Care Director Telemetry Name Role Phone Juan Ngo MD Primary Care Provider Social History Tobacco Use Types Packs/Day Years Used Date Smoking Tobacco: Never Assessed Sex and Gender Information Value Date Recorded Sex Assigned at Not on file Legal Sex Male 7:34 PM EST Gender Identity Not on file Sexual Orientation Not on file Plan of Treatment Upcoming Encounters Date Type Department Care Team ([facility] st Contact Info) Description 03/14/2025 1:30 PM EDT Consult Orthopedic Surgery [place] [id number] [phone] Kvng Azar, DPM [address] [address] Health Maintenance Due Date Last Done Comments [...] complete this topic Insurance PLAN Care Teams Director Telemetry Relationship Specialty Start Date End Date Juan Ngo MD [address] [place] [address] Dr [address] [place], [place] PCP - General Internal Medicine 01/19/25
== END 2025-03-02 13:57 | disposition home or self-care (01) ==
LOC: HO.RHE 12:58
PROVIDERS: PCP Internal Medicine; Visit Provider Student in an Organized Health Care Education/Training Program
DX: M10.00 Idiopathic gout, unspecified site (principal); Z51.81 Encounter for therapeutic drug level monitoring; Z79.899 Other long term (current) drug therapy; Z79.631 Long term (current) use of antimetabolite agent; Z79.52 Long term (current) use of systemic steroids
CPT/HCPCS: 99215; G2211

== ENCOUNTER → 2025-03-02 12:57 | Outpatient (BNVA) | payer OTHER, SELFPAY | PROVIDERS: PCP Internal Medicine; Visit Provider Student in an Organized Health Care Education/Training Program | DX: M25.572 Pain in left ankle and joints of left foot (principal); M10.00 Idiopathic gout, unspecified site; Z79.899 Other long term (current) drug therapy; Z51.81 Encounter for therapeutic drug level monitoring; Z79.52 Long term (current) use of systemic steroids | CPT/HCPCS: 99212 ==

== ENCOUNTER 2025-06-28 07:58 | Outpatient (REF) | payer OTHER, SELFPAY ==
--- OUTSIDE RECORDS SUMMARY | 2025-06-28 08:04 | XMS_ITS | Clinical Summary ---
Author Organization 175 [facility] Address [address] [place] [address] Phone Care Team Providers Care Montessori Preschool Teacher Name Role Phone Juan Ngo MD Primary Care Provider [phone] Encounters Date Type Department Care Team Description 04/06/2025 1:00 PM EDT Office Visit [facility] [address] [phone] Kvng Azar DPM Achilles tendinitis, right leg (Primary Dx); Plantar fascial fibromatosis; Tendonitis, Achilles, left; Gouty arthritis; Gout of both feet 04/03/2025 Telephone Orthopedic [facility] [address] [phone] Negin Reyes [place] from Last 3 Months Social History Tobacco Use Types Packs/Day Years Used Date Smoking Tobacco: Never Assessed Sex and Gender Information Value Date Recorded Sex Assigned at Male 03/14/2025 2:45 PM EDT Legal Sex Male 7:34 PM EST Gender Identity Male 03/14/2025 2:45 PM EDT Sexual Orientation Straight 03/14/2025 2: 45 PM EDT Plan of Treatment Upcoming Encounters Date Type Department Care Team (Late st Contact Info) Description 07/19/2025 10:45 AM EDT Office Visit [facility] [address] [phone] Kvng Azar DPM [address] [phone] Health Maintenance Due Date Last Done Comments Colorectal Cancer Screening: Colonoscopy 1972 DTaP,Tdap,and Td Vaccines (1 - Tdap) 01/26/1991 Hepatitis B Vaccines (1 of 3 - 19+ 3-dose series) 01/26/1991 Pneumococcal Vaccine: 50+ Ye ars (1 of 1 - PCV) 01/26/2022 Zoster Vaccines (1 of 2) 01/26/2022 Cholesterol Screening (Lipid Panel) 10/20/2023 HIV Screening 10/20/2023 Hepatitis C Screening 10/20/2023 Social Influencers of Health Screening 10/20/2023 Depression Screening 09/21/2024 COVID-19 Vaccine (1 - 2023-2 5 season) 2025 Influenza Vaccine (#1) 2025 RSV Immunization Adult Patie nts (1 - 1-dose 75+ series) 01/26/2047 HIB Vaccines Aged Out No longer eligi [...] patient's age to complete this topic Insurance HEALTH PLAN MEDICAID - [place] Care Teams Montessori Preschool Teacher Relationship Specialty Start Date End Date Juan gNo MD [address] [place] [address] [address] [facility] [place] PCP - General Internal Medicine 01/19/25
[2025-06-28 08:15] LABS: MANUAL DIFF FLAG NO
[2025-06-28 08:31] LABS: Hematocrit 47.0 % (42.0-52.0); Hemoglobin 15.5 g/dl (14.0-18.0); Imm Gran Abs Auto 0.04 X10*3/uL (0.00-0.03); Imm Gran Pct Auto 0.5 % (0.0-0.4); Lymphocytes Absolute Auto 2.0 X10*3/uL (1.2-4.9); Mean Corpuscular HGB Conc 33.0 g/dl (31.0-36.0); Mean Corpuscular Hemoglobin 28.5 pg (27.0-33.0); Mean Corpuscular Volume 86.6 fL (80.0-98.0); NRBC Abs Auto 0.000 X10*3/uL (0.0-0.012); NRBC Pct Auto 0.0 /100WBC (0.0-0.2); Platelet Count 348 X10*3/uL (160-400); Red Blood Count 5.43 X10*6/uL (4.60-5.80); White Blood Count 8.3 X10*3/uL (4.8-10.8)
[2025-06-28 08:32] LABS: Hematocrit 47.0 % (42.0-52.0); Hemoglobin 15.5 g/dl (14.0-18.0); Imm Gran Abs Auto 0.03 X10*3/uL (0.00-0.03); Imm Gran Pct Auto 0.3 % (0.0-0.4); Lymphocytes Absolute Auto 2.0 X10*3/uL (1.2-4.9); Mean Corpuscular HGB Conc 33.0 g/dl (31.0-36.0); Mean Corpuscular Hemoglobin 28.7 pg (27.0-33.0); Mean Corpuscular Volume 86.9 fL (80.0-98.0); NRBC Abs Auto 0.000 X10*3/uL (0.0-0.012); NRBC Pct Auto 0.0 /100WBC (0.0-0.2); Platelet Count 349 X10*3/uL (160-400); Red Blood Count 5.41 X10*6/uL (4.60-5.80); White Blood Count 8.6 X10*3/uL (4.8-10.8)
[2025-06-28 08:59] LABS: Appearance Urine Clear; Glucose Urine UA Negative (Negative); PH 6.0 (5.0-9.0); Specific Gravity - Urine 1.020 (1.005-1.025); UMIC TRIGGER UACC YES
[2025-06-28 09:20] LABS: Alanine Aminotransferase 47 U/L (0-40); Albumin Level 4.7 g/dL (3.5-5.0); Alkaline Phosphatase 69 U/L (39-117); Anion Gap 10 (12-20); Aspartate Amino Transferase 37 U/L (5-37); Blood Urea Nitrogen 10 mg/dL (9-16); Calcium 9.6 mg/dL (8.4-10.2); Carbon Dioxide 29 mmol/L (22-29); Chloride 107 mmol/L (96-108); Cholesterol 162 mg/dL (<200); Estimated Glomerular Filt Rate > 60; HDL Cholesterol 27 mg/dL (>40); Potassium 4.7 mmol/L (3.3-5.1); Sodium 141 mmol/L (135-145); Total Protein 7.3 g/dL (6.5-8.0); Triglycerides 182 mg/dL (<150); Uric Acid 9.8 mg/dL (3.4-7.0)
[2025-06-28 09:26] LABS: Uric Acid 9.9 mg/dL (3.4-7.0)
[2025-06-28 09:37] LABS: Microalbum/Creatinine Ratio Ur 4.3 ug/mg cr (<30)
== END 2025-06-28 07:59 | disposition home or self-care (01) ==
LOC: HO.LAB 07:58
PROVIDERS: Student in an Organized Health Care Education/Training Program; PCP Internal Medicine; Visit Provider Internal Medicine
DX: E11.9 Type 2 diabetes mellitus without complications (principal); M19.90 Unspecified osteoarthritis, unspecified site; M10.00 Idiopathic gout, unspecified site; E78.00 Pure hypercholesterolemia, unspecified; D64.9 Anemia, unspecified; M10.9 Gout, unspecified; E55.9 Vitamin D deficiency, unspecified
CPT/HCPCS: 36415; 80053; 80061; 81001; 81003; 82043; 82306; 82570; 83036; 84443; 84550; 85025; 85652; 86140; 86200; 86431

== ENCOUNTER 2025-06-30 14:34 | Outpatient (AMB) | payer OTHER, SELFPAY ==
[2025-06-30 14:37] VITALS: BP 118/70; PULSE 74; O2SAT 97; BMI 26.5
--- NOTE | 2025-06-30 14:37 | MHC.PC.OV ---
Vital Signs 06/30/25 14:37 Height 5 ft 11 in Weight 190 lb 4 oz BMI 26.5 BP 118/70 Blood Pressure Location Lt brachial Position Sitting Pulse 74 Pulse Source Pulse Oximeter Pulse Oximetry (%) 97 Oxygen Delivery Method Room Air Intake Visit Reasons: gout, DM f/u Aluminum Shingle Roofer Required: No Accompanied by: Self / Same As Patient Allergies No Known Allergies Allergy (Verified 07/01/25 04:54) Medication List - Last Reconciled 07/01/25 by Juan Ngo MD allopurinol 400 mg (2 x 200 mg) PO DAILY 90 days blood sugar diagnostic (FreeStyle Lite Strips) As directed once a day - Dx: E11.9 -- diabetes blood-glucose meter (FreeStyle Lite Meter kit) As directed - Dx: E11.9 -- diabetes cholecalciferol (vitamin D3) 50 mcg PO DAILY 90 days folic acid 1 mg PO DAILY lancets (FreeStyle Lancets) As directed metformin ER 1,000 mg (2 x 500 mg) PO BID methotrexate sodium 15 mg (6 x 2.5 mg) PO QWEEK 90 days prednisone 5 mg PO DAILY probenecid 500 mg PO BID sitagliptin phosphate (Januvia) 100 mg PO DAILY 90 days tadalafil 20 mg PO DAILY 90 days Tobacco use date assessed: 06/30/25 Dental Screening Dental Screen Date: 06/30/25 Did you have a dental visit in the last 12 months?: No Did you have a dental problem in the last 6 months where you did not have access to dental care?: No Was dental information given to patient?: No HPI gout, DM f/u HPI Details Patient comes in today for his follow-up visit States that he feels okay He is still experiencing recurrent pain in his right ankle but states that his overall gout flare ups have improved a lot with his current Tx He denies any headaches or dizziness Denies any chest pains, no SOB No nausea/vomiting, no abdominal pain No change in bowel habits noted He had his follow up labs done a couple of days ago - to discuss his results [facility] Medical History Inflammatory arthritis Encounter for monitoring allopurinol therapy Erectile dysfunction Gout Obesity (BMI 30-39.9) Mixed hyperlipidemia Diabetes mellitus Surgical History History of eye surgery Family History Father No problems noted. 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 Cognitive needs: No Hearing needs: No Vision needs: No Questionnaire Thrive Questionnaire Date Thrive assessed: 01/31/25 I am a: Patient What is your living situation today?: I have a steady place to live Within the past 12 months, did the food you bought not last and you didn't have the money to get more?: I choose not to answer this question Within the past 12 months, did you worry whether your food would run out before you got money to buy more?: I choose not to answer this question Do you have trouble paying for medicines?: Yes Do you have trouble getting transportation to medical appointments?: No Do you have trouble paying your heating and electricity bill?: I choose not to answer this question Do you have trouble taking care of your child, family member or friend?: No Do you have trouble with day-to-day activities such as bathing, preparing meals, shopping, managing finances, etc.?: Yes Are you currently unemployed and looking for a job?: No Are you interested in more education?: No Please select the resources that you would like help with: None Currently or been in a relationship where the following occur: No concerns reported THRIVE Score: 0 AUDIT C Alcohol Use Questionnaire (AUDIT-C) 1. How often do you have a drink containing alcohol?: Never 3. How often do you have six or more drinks on one occasion?: Never Total Score: 0 Score Reviewed/Action Taken: Yes MEJIA-7 AMB Questionnaire MEJIA-7 Date MEJIA - 7 assessed: 11/01/24 Source: Developed by Drs. Thuan Merchant, Shana Coppola, Agustín Jane and colleagues, with an educational yamil from [employer] Review of Systems Const Denies chills, Denies fatigue, Denies fever(s) and Denies headache(s) ENT Denies dysphagia, Denies dizziness, Denies otalgia, Denies headache(s), Denies neck pain, Denies odynophagia and Denies sore throat Card Denies chest pain, Denies palpitations and Denies dyspnea Resp Denies chest congestion, Denies cough and Denies dyspnea GI Denies abdominal pain, Denies constipation, Denies dysphagia, Denies heartburn, Denies diarrhea, Denies nausea, Denies odynophagia and Denies vomiting Denies difficulty urinating, Denies dysuria, Denies nocturia and Denies urinary frequency Musc Denies back pain, Reports arthralgias (recurrent over the right ankle), Denies joint swelling and Denies neck pain Skin/Breast Denies rash Neuro Denies dizziness and Denies headache(s) Endo Denies fatigue and Denies palpitations Physical exam (Primary Care) Vital Signs: Last Vital Signs Pulse 74 06/30/25 14:37 BP 118/70 06/30/25 14:37 Pulse Ox 97 06/30/25 14:37 Oxygen Delivery Method Room Air 06/30/25 14:37 BMI result Body Mass Index 26.5 Tobacco/Smoking Status: Tobacco use Status Tobacco use date assessed 06/30/25 06/30/25 14:40 Patient Tobacco Use Status Never used Tobacco 06/30/25 14:40 e-Cigarette/Vaping Use Never Used 06/30/25 14:40 Thrive Assessment: Date of Thrive Assessment Date Thrive assessed 01/31/25 06/30/25 14:40 Currently or been in a relationship where the following occur: No concerns reported Const General: no acute distress and alert HENMT Ears: TM's normal bilaterally and EAC's normal Throat: Yes posterior oropharynx normal and Yes tonsils normal Neck Neck: Yes supple and No lymphadenopathy Thyroid: Thyroid normal Resp Auscultation: clear to auscultation bilaterally, no rales and no wheezes Cardio Rate: regular rate Rhythm: regular rhythm Heart sounds: no murmurs GI Palpation (GI): Soft to palpation and nontender Auscultation: normal bowel sounds General: Yes no CVA tenderness Back/Spine/Pelvis Back: no CVA tenderness Thoracic/Lumbar Spine: No lumbar spinal tenderness Skin Rashes: no rashes Extrem General: Yes no clubbing, cyanosis or edema Right lower extremity: ankle Details: tenderness; no swelling and foot Details: normal to inspection Results Reviewed Results Reviewed: Laboratory Tests 06/28/25 06/28/25 08:06 08:14 WBC 8.6 Hgb 15.5 Hct 47.0 Plt Count 349 ESR 3 Sodium 141 Potassium 4.7 Creatinine 1.01 Estimated GFR > 60 Fasting Glucose 159 H Hemoglobin A1c % 8.3 H Uric Acid 9.9 H Calcium 9.6 D AST 37 ALT 47 H Triglycerides 182 H Cholesterol 162 LDL Cholesterol, Calc 99 HDL Cholesterol 27 L 25-OH Vitamin D Total 37.6 TSH 0.37 Ur Specific Hessel 1.020 Urine Protein Negative Urine Glucose (UA) Negative Urine Blood Negative Urine Nitrite Negative Ur Leukocyte Esterase Trace H Microalb/Creat Ratio 4.3 Rheumatoid Factor < 13.0 Coding Level of Care Code Est Pt Level 4 (66333) Diagnoses Type 2 diabetes mellitus without complication, without long-term current use of insulin E11.9 Diabetes mellitus complication status: without complication Diabetes mellitus nursing home insulin use: without nursing home use Diabetes mellitus type: type 2 Mixed hyperlipidemia E78.2 Idiopathic gout, unspecified chronicity, unspecified site M10.00 Chronicity: unspecified Gout etiology: idiopathic Gout site: unspecified site Vitamin D deficiency E55.9 Erectile dysfunction, unspecified erectile dysfunction type N52.9 Erectile dysfunction type: unspecified Overweight (BMI 25.0-29.9) E66.3 Assessment & Plan Assessment & Plan (1) Diabetes mellitus: Code(s): E11.9 - Type 2 diabetes mellitus without complications Category: Medical Qualifiers: Diabetes mellitus complication status: without complication 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 insulin use: without nursing home use Diabetes mellitus type: type 2 Qualified Code(s): E11.9 - Type 2 diabetes mellitus without complications Plan: His HgbA1c went up further to 8.3% on his recent labs (was previously at 7.6% a few months ago) - goal is < 7.0% He is again advised that the continuing rise in his HgbA1c is likely due to the Prednisone Rx that he is on for his ongoing right foot/ankle pain Reinforced diabetic diet Continue Januvia 100 mg QD in AM and Metformin ER 500 mg 2 tablets (1000 mg) BID for now Will refer him to endocrinology for further evaluation and management (2) Mixed hyperlipidemia: Code(s): E78.2 - Mixed hyperlipidemia Category: Medical Plan: Results of his labs done a couple of days ago reviewed and discussed with patient Reinforced low cholesterol diet Will recheck his labs and fasting lipids in 4 months for follow up (3) Gout: Code(s): M10.9 - Gout, unspecified Category: Medical Qualifiers: Chronicity: unspecified Gout etiology: idiopathic Gout site: unspecified site Qualified Code(s): M10.00 - Idiopathic gout, unspecified site Plan: His serum uric acid level has gone back up to 9.9 mg/dl on his labs done a couple of days ago (it was normal at 4.8 mg/dl a few months ago) MRI of the ankle done a few months ago revealed (+) edema within the calcaneus of the medial malleolus of uncertain etiology Reinforced low purine diet Continue Allopurinol 400 mg QD and Probenecid 500 mg BID He was also started on Methotrexate 15 mg once a week back in January 2025 for his gout that is proving resistant to Tx Follow up with rheumatology as scheduled (4) Vitamin D deficiency: Code(s): E55.9 - Vitamin D deficiency, unspecified Category: Medical Plan: Continue Vitamin D3 2000 units QD (5) Erectile dysfunction: Code(s): N52.9 - Male erectile dysfunction, unspecified Category: Medical Qualifiers: Erectile dysfunction type: unspecified Qualified Code(s): N52.9 - Male erectile dysfunction, unspecified Plan: Continue Tadalafil 20 mg QD PRN Follow up with urology as scheduled (6) Overweight (BMI 25.0-29.9): Code(s): E66.3 - Overweight Category: Medical Plan: Reinforced diet/exercise as tolerated/lose weight Plan Follow up in 4 months Orders: Orders Comprehensive [place]. Panel Fast 4 Months E78.00 - Pure hypercholesterolemia, unspecified Microalbumin, Random (w Creat) 4 Months E11.9 - Type 2 diabetes mellitus without complications Hemoglobin A1c 4 Months E11.9 - Type 2 diabetes mellitus without complications Complete Blood Count Auto Diff 4 Months D64.9 - Anemia, unspecified Lipid Panel 4 Months E78.00 - Pure hypercholesterolemia, unspecified UA CC w/rflx Micro + Cult 4 Months R30.0 - Dysuria Uric Acid 4 Months M10.9 - Gout, unspecified Referrals Endocrinology Referral E11.9 - Type 2 diabetes mellitus without complications
== END 2025-06-30 15:29 | disposition home or self-care (01) ==
LOC: HO.HMCH 14:35
PROVIDERS: PCP Internal Medicine; Visit Provider Internal Medicine
DX: E11.9 Type 2 diabetes mellitus without complications (principal); E78.2 Mixed hyperlipidemia; M10.00 Idiopathic gout, unspecified site; E55.9 Vitamin D deficiency, unspecified; N52.9 Male erectile dysfunction, unspecified; E66.3 Overweight

== ENCOUNTER → 2025-06-30 14:34 | Outpatient (BNVA) | payer OTHER, SELFPAY | PROVIDERS: PCP Internal Medicine; Visit Provider Internal Medicine | DX: E11.9 Type 2 diabetes mellitus without complications (principal); E78.2 Mixed hyperlipidemia; M10.00 Idiopathic gout, unspecified site; E55.9 Vitamin D deficiency, unspecified; N52.9 Male erectile dysfunction, unspecified; E66.3 Overweight; E78.00 Pure hypercholesterolemia, unspecified; D64.9 Anemia, unspecified; R30.0 Dysuria; M10.9 Gout, unspecified; Z68.26 Body mass index [BMI] 26.0-26.9, adult | CPT/HCPCS: 99212 ==

== ENCOUNTER 2025-07-06 11:23 | Outpatient (AMB) | payer OTHER, SELFPAY ==
--- NOTE | 2025-07-06 11:30 | MHC.OFFVIS ---
Vital Signs 07/06/25 11:40 Height 5 ft 11 in Weight 193 lb 1.999 oz BMI 26.9 BP 120/82 Blood Pressure Location Lt brachial Position Sitting Pulse 58 Pulse Source Pulse Oximeter Pulse Oximetry (%) 98 Oxygen Delivery Method Room Air Intake Visit Reasons: follow up Intake Note: Patient presents for Gout follow up. Physician Recruiter Required: Yes Physician Recruiter Language: Raw Material Handler Services: Physician Recruiter Offered & Declined Physician Recruiter Name: Maxim Maradiaga Information Interpreted: non-clinical & clinical Geothermal Technician: Geothermal Technician Present (Maxim Maradiaga) Accompanied by: Daughter Allergies No Known Allergies Allergy (Verified 07/06/25 14:28) Medication List - Last Reconciled 07/06/25 by Jennifer Sams MD allopurinol 400 mg (2 x 200 mg) PO DAILY 90 days blood sugar diagnostic (FreeStyle Lite Strips) As directed once a day - Dx: E11.9 -- diabetes blood-glucose meter (FreeStyle Lite Meter kit) As directed - Dx: E11.9 -- diabetes cholecalciferol (vitamin D3) 50 mcg PO DAILY 90 days folic acid 1 mg PO DAILY lancets (FreeStyle Lancets) As directed metformin ER 1,000 mg (2 x 500 mg) PO BID methotrexate sodium 15 mg (6 x 2.5 mg) PO QWEEK 90 days prednisone 5 mg PO DAILY probenecid 500 mg PO BID sitagliptin phosphate (Januvia) 100 mg PO DAILY 90 days tadalafil 20 mg PO DAILY 90 days HPI Comments Details: Patient is a 55-year-old male with diabetes, hypertension, hyperlipidemia and non crystal proven non tophaceous gout here today for follow up Interval History: Patient last seen 03/02/25 with me - On allopurinol 400mg daily, prednisone 5mg, Probenecid 500mg bid, colchicine 0.6mg bid - Here today for an urgent visit again for left foot pain. Patient states that he noticed swelling to his left foot over the past week - Uric acid at goal - Added methotrexate for ?inflammatory arthritis/enthesitis Today, - On allopurinol 400mg daily, prednisone 5mg, Probenecid 500mg bid, methotrexate 15mg PO weekly, folic acid 1mg daily - No flares - Still unable to wear sneakers - Cannot stand or do any activity for a prolonged period of time Rheumatologic History: ddx 2011 Allopurinol 11/2024 Initial history by me: Patient has been having intermittent gout flares with a past 13 years. His gout is currently managed by his PCP. Originally he was started on allopurinol 300 mg but this was not up titrated and his uric acid remain elevated and so he was subsequently switched to febuxostat. He denies any adverse reactions while being on allopurinol Currently he has been having a flare of his gout that started in August. Initially started with right 1st MTP pain and swelling and this now progressed to involve the entire foot including the ankle. Was given a short taper but this did not improve his symptoms this time. Of note he has had flares involving his knees, and the opposite foot in the past. Risk Factors for Gout HTN Denies: Family history of gout, CKD, EtOH use and use of medications: low-dose ASA, diuretics, cyclosporine Current Rheumatology Medication(s): Allopurinol 400mg daily Probenecid 500 mg twice a day [facility] Medical History Inflammatory arthritis Encounter for monitoring allopurinol therapy Erectile dysfunction Gout Obesity (BMI 30-39.9) Mixed hyperlipidemia Diabetes mellitus Surgical History History of eye surgery Family History (Updated 07/06/25 @ 11:39 by ROXANNA Hawkins) Father Cancer 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 Cognitive needs: No Hearing needs: No Vision needs: No Review of Systems Const Details: Review of Systems Constitutional: Denies fever, chills, weight loss ENT: Denies vision changes, eye pain or eye redness, dental caries, dry mouth GI: Denies nausea, vomiting, diarrhea, abdominal pain, change in BM Pulm: Denies SOB, MIGUEL, hemoptysis, wheezing Cards: Denies chest pain, palpitations Skin: Denies Raynaud's, rash, nail changes, photosensitivity, MANAGER STERILE: Denies headaches, weakness, paresthesias, recurrent falls MSK: as per HPI All other systems reviewed and are unremarkable except noted above Physical Exam Exam Exam: Vital signs reviewed Physical Examination CONSTITUITIONAL Patient alert and cooperative. Well appearing and in no apparent painful distress MSK Hands Right Hand: Able to make a fist. No swelling or tenderness to palpation of the MCPs, PIPs or DIPs. Left Hand: Able to make a fist. No swelling or tenderness to palpation of the MCPs, PIPs or DIPs. Wrists Right Wrist: Full ROM to flexion and extension. No swelling or TTP Left Wrist: Full ROM to flexion and extension. No swelling or TTP Elbows Right Elbow: Full ROM. No swelling or TTP. No TTP of the medial epicondyle. No TTP of the lateral epicondyle Left Elbow: Full ROM. No swelling or TTP. No TTP of the medial epicondyle. No TTP of the lateral epicondyle Shoulders Right shoulder: Full ROM. No swelling noted. No TTP of the AC joint. No TTP of the subacromial bursa. No TTP of the posterior shoulder Left shoulder: Full ROM. No swelling noted. No TTP of the AC joint. No TTP of the subacromial bursa. No TTP of the posterior shoulder Knees Right knee: Full ROM. No swelling noted. No TTP of the knee joint line. No TTP of pes anserine bursa Left knee: Full ROM. No swelling noted. No TTP of the knee joint line. No TTP of pes anserine bursa. Ankles Right ankle: Good ankle dorsiflexion and plantar flexion. No swelling. TTP of the tibiotalar and subtalar joint. TTP of the Achilles tendon Left ankle: Good ankle dorsiflexion and plantar flexion. No swelling. TTP of the tibiotalar and subtalar joint. Feet Right foot: Negative squeeze test Left foot: Negative squeeze test Tender points? No tenderness to palpation of the bilateral trapezius, supraspinatus, anterior costochondral junctions, bilateral suboccipital muscle insertions SKIN No rashes Vital Signs: Last Vital Signs Pulse 58 07/06/25 11:40 BP 120/82 07/06/25 11:40 Pulse Ox 98 07/06/25 11:40 Oxygen Delivery Method Room Air 07/06/25 11:40 BMI result Body Mass Index 26.9 Results Reviewed Results Reviewed: Laboratory Tests 02/26/25 06/28/25 12:01 08:14 WBC 8.3 RBC 5.43 Hgb 15.5 Hct 47.0 Plt Count 348 ESR 3 Sodium 141 Potassium 4.7 Chloride 107 Carbon Dioxide 29 BUN 10 Creatinine 1.01 Uric Acid 2.8 L 9.9 H AST 24 37 ALT 29 47 H C-Reactive Protein 0.20 0.11 25-OH Vitamin D Total 37.6 Laboratory Tests 09/04/20 06/28/25 07:55 08:14 Rheumatoid Factor < 13.0 NATHAN Screen POSITIVE A NATHAN Titer 1:80 H Cycl Citrul Peptide IgG <16 Assessment & Plan Assessment & Plan (1) Gout: Comment: ddx 2011 Allopurinol 11/2024 Added febuxostat Code(s): M10.9 - Gout, unspecified Category: Medical Qualifiers: Gout site: unspecified site Gout etiology: idiopathic Chronicity: unspecified Qualified Code(s): M10.00 - Idiopathic gout, unspecified site Plan: #Gout Patient is a 55-year-old male with non crystal proven gout here today for follow up. Patient has extremely difficult to control gout. Uric acid not at goal. I do think this may be on the background of non compliance since his last uric acid was 2.8. Had a very long discussion with patient and his daughter about compliance He did mention that he has been having difficult to control his DM with elevated A1C despite compliance with DM meds. Because of this we will stop prednisone and start colchicine 0.6mg daily for prophylaxis He still has ankle pain with TTP of the achilles tendon The Methotrexate was supposed to help with this but this is still persistent For now i need to get his uric acid under control first Plan - Probenecid 500mg bid - Allopurinol 400mg daily - Start colchicine 0.6mg daily - Methotrexate 15mg PO weekly - Folic acid 1 mg daily - RTC August 2025 - Labs before visit: CBC, CMP, ESR, CRP, Uric acid (2) Encounter for monitoring allopurinol therapy: Code(s): Z51.81 - Encounter for therapeutic drug level monitoring; Z79.899 - Other terminal operator (current) drug therapy Category: Medical Plan: #Long-term Current Use of Allopurinol Risks and benefits of allopurinol discussed with patient Benefits include decreased gout flares, remission of gout and reduction of tophi Risks include allopurinol hypersensitivity syndrome which is a severe cutaneous adverse reaction associated with allopurinol use particularly in patients who are HLA [id number] positive, increased transaminases, GI upset including diarrhea, nausea and vomiting, and other dermatologic manifestations. (3) Encounter for methotrexate monitoring: Code(s): Z51.81 - Encounter for therapeutic drug level monitoring; Z79.631 - care home (current) use of antimetabolite agent Plan: #Long-term Current Use of Methotrexate Discussed with patient the benefits and risks of methotrexate for managing their rheumatic condition Benefits include reduced pain, reduced mortality, maintenance of remission and reduction of flares Risks include oral ulcers, photosensitivity, hepatotoxicity, hematologic toxicity, pneumonitis, flu-like symptoms (especially day after administration), nodulosis, lymphomas ? Limit alcohol and avoid Bactrim ? Monitoring: ?CBC, BMP, LFTs every 3-4 months and hepatitis serologies as needed Plan I spent 40 minutes reviewing the record and labs, taking a history, examining the patient, discussing the treatment plan, ordering diagnostic work up, discussing medications with patient and daughter, and documenting in the medical record Orders: Orders Complete Blood Count Auto Diff 08/16/25 M10.00 - Idiopathic gout, unspecified site C Reactive Protein 08/16/25 M10.00 - Idiopathic gout, unspecified site Comprehensive Met. Panel 08/16/25 M10. - Idiopathic gout, unspecified site Erythrocyte Sedimentation Rate 08/16/25 M10. - Idiopathic gout, unspecified site Uric Acid 08/16/25 M10. - Idiopathic gout, unspecified site Medications: New colchicine 0.6 mg PO DAILY 90 tabs 1RF M10.00 - Idiopathic gout, unspecified site Refilled allopurinol 400 mg (2 x 200 mg) PO DAILY 180 tabs 1RF 90 days M10.00 - Idiopathic gout, unspecified site probenecid 500 mg PO BID 180 tabs 1RF M10.00 - Idiopathic gout, unspecified site methotrexate sodium 15 mg (6 x 2.5 mg) PO QWEEK 78 tabs 1RF 90 days M19.90 - Unspecified osteoarthritis, unspecified site folic acid 1 mg PO DAILY 90 tabs 1RF M19.90 - Unspecified osteoarthritis, unspecified site Discontinued prednisone Discontinued Reason: Doctor's Order 5 mg PO DAILY 90 tabs 1RF M10.00 - Idiopathic gout, unspecified site Coding Level of Care Code Est Pt Level 5 (92690) Complex EM visit Add On G2211 Diagnoses Idiopathic gout, unspecified chronicity, unspecified site M10.00 Gout site: unspecified site Gout etiology: idiopathic Chronicity: unspecified Encounter for monitoring allopurinol therapy Z51.81; Z79.899 Encounter for methotrexate monitoring Z51.81; Z79.631
[2025-07-06 11:40] VITALS: BP 120/82; PULSE 58; O2SAT 98; BMI 26.9
--- OUTSIDE RECORDS SUMMARY | 2025-07-06 14:42 | XMS_ITS | Clinical Summary ---
Author Organization 175 [facility] Address [address] [place] [address] Phone Care Team Providers Care High [employer] Academic Coach Name Role Phone Juan Ngo MD Primary Care Provider [phone] Encounters Date Type Department Care Team Description 04/06/2025 1:00 PM EDT Office Visit Orthopedic Surgery [facility] [address] [phone] Kvng Azar DPM Achilles tendinitis, right leg (Primary Dx); Plantar fascial fibromatosis; Tendonitis, Achilles, left; Gouty arthritis; Gout of both feet from Last 3 Months Social History Tobacco [...] Description 07/19/2025 10:45 AM EDT Office Visit Orthopedic Surgery [facility] [address] [phone] Kvng Azar DPM [address] [phone] Health Maintenance Due Date Last [...] patient's age to complete this topic Insurance [facility] MEDICAID - [place] Care Teams High School Academic Coach Relationship Specialty Start Date End Date Juan Ngo MD [address] [place] [address] Dr [address] [place] PCP - General Internal Medicine 01/19/25
== END 2025-07-06 12:50 | disposition home or self-care (01) ==
LOC: HO.RHES 11:25
PROVIDERS: PCP Internal Medicine; Visit Provider Student in an Organized Health Care Education/Training Program
DX: M1A.0710 Idiopathic chronic gout, right ankle and foot, without tophus (tophi) (principal); Z51.81 Encounter for therapeutic drug level monitoring; Z79.899 Other long term (current) drug therapy; Z79.631 Long term (current) use of antimetabolite agent
CPT/HCPCS: 99215

== ENCOUNTER → 2025-07-06 11:23 | Outpatient (REF) | payer OTHER, SELFPAY ==
--- NOTE | 2025-07-06 14:48 | ECG_ITS ---
Test Reason : Z01.818 - Encounter for other preprocedural examination Blood Pressure : */* mmHG Vent. Rate : 58 BPM Atrial Rate : 58 BPM P-R Int : 138 ms QRS Dur : 116 ms QT Int : 426 ms P-R-T Axes : 51 -44 -15 degrees QTcB Int : 418 ms Sinus bradycardia Left axis deviation Minimal voltage criteria for LVH, may be normal variant ( Byron product ) Nonspecific T wave abnormality Abnormal ECG No previous ECGs available Referred By: Travon Chatman Electronically Signed By: Alvaro Ford
== END ==
LOC: HO.CARD 11:23
PROVIDERS: PCP Internal Medicine; Visit Provider Student in an Organized Health Care Education/Training Program
DX: Z01.818 Encounter for other preprocedural examination (principal); E11.9 Type 2 diabetes mellitus without complications; E78.2 Mixed hyperlipidemia; E55.9 Vitamin D deficiency, unspecified; N52.9 Male erectile dysfunction, unspecified; E66.3 Overweight; Z79.4 Long term (current) use of insulin; Z79.899 Other long term (current) drug therapy; Z79.84 Long term (current) use of oral hypoglycemic drugs; Z68.26 Body mass index [BMI] 26.0-26.9, adult
CPT/HCPCS: 93005; 99212

== ENCOUNTER 2025-07-06 13:41 | Outpatient (AMB) | payer OTHER, SELFPAY ==
[2025-07-06 13:49] VITALS: BP 106/58; PULSE 62; RESP 18; TEMP 36.2; O2SAT 96; BMI 26.6
--- NOTE | 2025-07-06 13:49 | A.OFFPC_ITS ---
Vital Signs 07/06/25 13:49 Height 5 ft 11 in Weight 191 lb BMI 26.6 BP 106/58 L Blood Pressure Location Lt brachial Position Sitting Respiration 18 Pulse 62 Pulse Source Pulse Oximeter Temp 97.1 F Temp Source Temporal Artery Scan Pulse Oximetry (%) 96 Oxygen Delivery Method Room Air Intake Visit Reasons: [facility] 07/14 upper eyelid surger Director Of Financial Aid Required: No Accompanied by: Self / Same As Patient Allergies No Known Allergies Allergy (Verified 07/06/25 14:28) Medication List - Last Reconciled 07/06/25 by CHATA Hathaway allopurinol 400 mg (2 x 200 mg) PO DAILY 90 days blood sugar diagnostic (FreeStyle Lite Strips) As directed once a day - Dx: E11.9 -- diabetes blood-glucose meter (FreeStyle Lite Meter kit) As directed - Dx: E11.9 -- diabetes cholecalciferol (vitamin D3) 50 mcg PO DAILY 90 days folic acid 1 mg PO DAILY lancets (FreeStyle Lancets) As directed metformin ER 1,000 mg (2 x 500 mg) PO BID methotrexate sodium 15 mg (6 x 2.5 mg) PO QWEEK 90 days probenecid 500 mg PO BID sitagliptin phosphate (Januvia) 100 mg PO DAILY 90 days tadalafil 20 mg PO DAILY 90 days Tobacco use date assessed: 07/06/25 Dental Screening Dental Screen Date: 07/06/25 Did you have a dental visit in the last 12 months?: No Did you have a dental problem in the last 6 months where you did not have access to dental care?: No Was dental information given to patient?: No HPI [facility] 07/14 upper eyelid surger HPI Details Patient is a 55-year-old male presenting for preop clearance. Patient of Dr. Huber hunt seen in office on 06/30/2025 The patient is presenting for preoperative clearance for blepharoplasty. The patient has diabetes mellitus, with recent lab results indicating an upward trend in his A1c levels at 8.3%. He attributes this to the use of prednisone for gout management. The patient is scheduled for upper eyelid surgery on both eyes and requires preoperative clearance. He has not had an EKG recently, which is necessary due to the anesthesia involved in the procedure. The patient has been advised to stop certain medications, such as metformin, prior to the surgery to prevent renal complications. Patient complain of longstanding dermatochalasis causing difficulty reading and driving. Vision and periphery are improved with manual eyelid elevation. Surgery: Blepharoplasty Date: July 14 Surgeon/location: Fernando Leal at [facility] and [place], [place] Anesthesia: Mac Patient denies any prior surgeries. Denies any bleeding issues and he is not on any anticoagulants. Significant past medical history of diabetes mellitus, gout, hypogonadism, obesity, mixed hyperlipidemia Denies chest pain, shortness of breath, heart palpitation, or dizziness Denies abdominal pain or change in bowel habits [facility], [facility] Medical History Inflammatory arthritis Encounter for monitoring allopurinol therapy Erectile dysfunction Gout Obesity (BMI 30-39.9) Mixed hyperlipidemia Diabetes mellitus Surgical History History of eye surgery Family History (Updated 07/06/25 @ 11:39 by ROXANNA Hawkins) Father Cancer 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 Cognitive needs: No Hearing needs: No Vision needs: No Questionnaire Thrive Questionnaire Date Thrive assessed: 01/31/25 I am a: Patient What is your living situation today?: I have a steady place to live Within the past 12 months, did the food you bought not last and you didn't have the money to get more?: I choose not to answer this question Within the past 12 months, did you worry whether your food would run out before you got money to buy more?: I choose not to answer this question Do you have trouble paying for medicines?: Yes Do you have trouble getting transportation to medical appointments?: No Do you have trouble paying your heating and electricity bill?: I choose not to answer this question Do you have trouble taking care of your child, family member or friend?: No Do you have trouble with day-to-day activities such as bathing, preparing meals, shopping, managing finances, etc.?: Yes Are you currently unemployed and looking for a job?: No Are you interested in more education?: No Please select the resources that you would like help with: None Currently or been in a relationship where the following occur: No concerns reported THRIVE Score: 0 MEJIA-7 AMB Questionnaire MEJIA-7 Date MEJIA - 7 assessed: 11/01/24 Source: Developed by Drs. Thuan Merchant, Shana Coppola, Agustín Jane and colleagues, with an educational yamil from [employer]. Review of Systems Const Denies headache(s) Eyes Denies loss of vision ENT Denies vertigo, Denies dizziness, Denies headache(s) and Denies sore throat Card Denies chest pain, Denies leg edema and Denies lightheadedness Resp Denies cough, Denies hemoptysis and Denies wheezing GI Denies abdominal pain, Denies melena, Denies constipation, Denies diarrhea and Denies vomiting Denies dysuria, Denies urinary frequency and Denies urinary urgency Musc Reports arthralgias (Right ankle on and off), Reports joint swelling (Right ankle on and off), Denies numbness and Denies tingling Neuro Denies Abnormal speech present, Denies behavioral changes, Denies vertigo, Denies dizziness, Denies headache(s), Denies loss of vision, Denies memory loss, Denies numbness and Denies tingling Psych Denies anxiety, Denies behavioral changes, Denies depression, Denies memory loss and Denies panic attacks Schuyler/Lymph Denies easy bleeding and Denies easy bruising Aller/Immun Denies wheezing Physical exam (Primary Care) Vital Signs: Last Vital Signs Temp 97.1 F 07/06/25 13:49 Pulse 62 07/06/25 13:49 Resp 18 07/06/25 13:49 BP 106/58 L 07/06/25 13:49 Pulse Ox 96 07/06/25 13:49 Oxygen Delivery Method Room Air 07/06/25 13:49 BMI result Body Mass Index 26.6 Tobacco/Smoking Status: Tobacco use Status Tobacco use date assessed 07/06/25 07/06/25 14:01 Patient Tobacco Use Status Never used Tobacco 07/06/25 14:01 e-Cigarette/Vaping Use Never Used 07/06/25 14:01 Thrive Assessment: Date of Thrive Assessment Date Thrive assessed 01/31/25 07/06/25 14:01 Currently or been in a relationship where the following occur: No concerns reported Const General: healthy appearing, no acute distress, alert and awake Nutritional Appearance: well nourished Orientation/consciousness: oriented to person, oriented to place and oriented to time HENMT Ears: TM's normal bilaterally General nose exam: Normal nasal mucous membranes and turbinates present Eyes Conjunctivae: conjunctivae normal Sclerae: sclerae normal Pupils: Equal, round and reactive pupils present Neck Neck: Yes no lymphadenopathy and Yes no JVD Thyroid: Thyroid normal Carotids: no bruits Resp Effort & Inspection: normal respiratory effort and not tachypneic Auscultation: no crackles, no rales, no rhonchi and no wheezes Cardio Rate: regular rate Rhythm: regular rhythm Heart sounds: no murmurs and normal S1 and S2 GI Palpation (GI): Soft to palpation, nontender, no hepatomegaly and no splenomegaly Auscultation: normal bowel sounds Skin General skin exam: no rashes or lesions noted and dry skin Neuro General: oriented to person, oriented to place and oriented to time Cranial nerves: Yes Equal, round and reactive pupils present Speech: No Abnormal speech present Gait exam (Neuro): Normal gait present Motor exam (neuro): no tremor noted Extrem Right upper extremity: full ROM Left upper extremity: full ROM Right lower extremity: full ROM and ankle Details: no tenderness and no swelling; no edema Left lower extremity: full ROM; no edema Psych Mental Status: mental status grossly normal Speech and movement: Normal speech and movement present Affect: normal affect Attitude: cooperative Thought process: Normal thought process present Results Reviewed Results Reviewed: Laboratory Tests 06/28/25 06/28/25 08:06 08:14 WBC 8.3 RBC 5.43 Hgb 15.5 Hct 47.0 MCV 86.6 MCH 28.5 MCHC 33.0 RDW 12.9 Plt Count 348 Sodium 141 Potassium 4.7 Chloride 107 Carbon Dioxide 29 Anion Gap 10 L BUN 10 Creatinine 1.01 Estimated GFR > 60 Fasting Glucose 159 H Hemoglobin A1c % 8.3 H Uric Acid 9.9 H Calcium 9.6 D Total Bilirubin 0.7 AST 37 ALT 47 H Alkaline Phosphatase 69 C-Reactive Protein 0.11 Total Protein 7.3 Albumin 4.7 Triglycerides 182 H Cholesterol 162 LDL Cholesterol, Calc 99 HDL Cholesterol 27 L 25-OH Vitamin D Total 37.6 TSH 0.37 Urine Color Yellow Urine Appearance Clear Urine pH 6.0 Ur Specific [place] 1.020 Urine Protein Negative Urine Glucose (UA) Negative Urine Ketones Negative Urine Blood Negative Urine Nitrite Negative Ur Leukocyte Esterase Trace H Urine RBC 0-2 Urine WBC 0-5 Ur Squamous Epith Cells 0-2 Hyaline Casts 0-2 Urine Creatinine 204.64 Urine Microalbumin 9.0 Microalb/Creat Ratio 4.3 Coding Level of Care Code Est Pt Level 4 (77541) Diagnoses Preoperative clearance Z01.818 Type 2 diabetes mellitus without complication, without long-term current use of insulin E11.9 Diabetes mellitus type: type 2 Diabetes mellitus ocean transportation intermediary insulin use: without care home use Diabetes mellitus complication status: without complication Mixed hyperlipidemia E78.2 Vitamin D deficiency E55.9 Erectile dysfunction, unspecified erectile dysfunction type N52.9 Erectile dysfunction type: unspecified Overweight (BMI 25.0-29.9) E66.3 Time Spent (min) 38 Assessment & Plan Assessment & Plan (1) Preoperative clearance: Code(s): Z01.818 - Encounter for other preprocedural examination Category: Medical Plan: Recent labs were reviewed. No ekg on file. EKG ordered to further evaluate Regarding preop clearance, the patient is at acceptable risk for proposed surgery and will be cleared once the patient complete EKG that is within goal. Reviewed with the patient that no surgery is completely free of risk and that this examination is to assist the surgeon in reviewing informed consent. (2) Diabetes mellitus: Code(s): E11.9 - Type 2 diabetes mellitus without complications Category: Medical Qualifiers: Diabetes mellitus type: type 2 Diabetes mellitus ocean transportation intermediary insulin use: without ocean transportation intermediary use Diabetes mellitus complication status: without complication Qualified Code(s): E11.9 - Type 2 diabetes mellitus without complications Plan: His HgbA1c went up further to 8.3% on his recent labs (was previously at 7.6% a few months ago) - goal is < 7.0% He is again advised that the continuing rise in his HgbA1c is likely due to the Prednisone Rx that he is on for his ongoing right foot/ankle pain. Since, his prednisone was discontinued and colchicine 0.6 mg daily was started Reinforced diabetic diet Continue Januvia 100 mg QD in AM and Metformin ER 500 mg 2 tablets (1000 mg) BID (3) Mixed hyperlipidemia: Code(s): E78.2 - Mixed hyperlipidemia Category: Medical Plan: Results of his labs done a couple of days ago reviewed and discussed with patient Reinforced low cholesterol diet Will recheck his labs and fasting lipids in 4 months for follow up (4) Vitamin D deficiency: Code(s): E55.9 - Vitamin D deficiency, unspecified Category: Medical Plan: Continue Vitamin D3 2000 units QD (5) Erectile dysfunction: Code(s): N52.9 - Male erectile dysfunction, unspecified Category: Medical Qualifiers: Erectile dysfunction type: unspecified Qualified Code(s): N52.9 - Male erectile dysfunction, unspecified Plan: Continue Tadalafil 20 mg QD PRN Follow up with urology as scheduled (6) Overweight (BMI 25.0-29.9): Code(s): E66.3 - Overweight Category: Medical Plan: Reinforced diet/exercise as tolerated/lose weight Orders: Orders ECG 12 lead EKG 07/06/25 Z01.818 - Encounter for other preprocedural examinat ion
== END 2025-07-06 15:19 | disposition home or self-care (01) ==
LOC: HO.HMCH 13:41
PROVIDERS: PCP Internal Medicine
DX: Z01.818 Encounter for other preprocedural examination (principal); E11.9 Type 2 diabetes mellitus without complications; E78.2 Mixed hyperlipidemia; E55.9 Vitamin D deficiency, unspecified; N52.9 Male erectile dysfunction, unspecified; E66.3 Overweight

== ENCOUNTER → 2025-07-06 14:48 | Outpatient (BNV) | payer OTHER, SELFPAY | PROVIDERS: PCP Internal Medicine; Visit Provider Internal Medicine Cardiovascular Disease | DX: R00.1 Bradycardia, unspecified (principal) | CPT/HCPCS: 93010 ==

== ENCOUNTER 2025-07-18 14:08 | Outpatient (AMB) | payer OTHER, SELFPAY ==
--- NOTE | 2025-07-18 14:10 | MHC.OFFVIS ---
Vital Signs 07/18/25 14:11 Height 5 ft 11 in Weight 193 lb 12.581 oz BMI 27.0 BP 110/52 L Blood Pressure Location Lt brachial Position Sitting Pulse 64 Pulse Source Pulse Oximeter Pulse Oximetry (%) 98 Oxygen Delivery Method Room Air Intake Visit Reasons: Type 2 diabetes mellitus without complications Intake Note: New patient internally referred by PCP for T2DM. 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 The patient was diagnosed with type 2 diabetes 13 years ago. He has a family history of diabetes in his mother and grandmother. Hemoglobin A1c 8.3% 06/28/2025. Patient reports he has needed to take prednisone for arthritis which has caused high sugars. Current medications: Metformin extended release 1000 mg twice daily and Januvia 100 mg daily Past medication: none Compliance issues:none Diet: Low carb and sugar diet, no juice soda or alcohol. nonsmoker Breakfast- 2 eggs and turkey, black coffee Lunch- rice and beans and chicken, vegatables Dinner- salad, chicken and water, vegetables Snacks/desserts: cookie, corn bread around 5 or 6 pm His ability to exercise is limited by inflammatory arthritis pain. BMI 27. Hypoglycemia symptoms: none Hyperglycemia symptoms: dry mouth Microvascular complications: none Macrovascular complications: none Hyperlipidemia: treated with LDL at goal <100. ROS: Constitutional: No unexplained weight loss, fever, chills or night sweats Eyes: No vision changes, blurry vision, double vision Gastrointestinal: No anorexia, nausea, vomiting or diarrhea. No abdominal pain Neurologic: No headache, dizziness, syncope, denies numbness or tingling in the extremities Skin: No rash or wounds Endocrine: No cold or heat intolerance. No polyuria or polydipsia. Physical exam: Constitutional: Alert, in no distress. Neck: Supple, Full range of motion. No lymphadenopathy. No palpable thyroid masses. Respiratory: Clear to auscultation. Cardiovascular: S1 S2 regular. No murmurs. Extremities: No edema Psychiatric: Normal mood and affect [facility] Medical History (Updated 07/18/25 @ 15:21 by CARLOTA Haines) Uncontrolled type 2 diabetes mellitus with hyperglycemia Inflammatory arthritis Encounter for monitoring allopurinol therapy Erectile dysfunction Gout Obesity (BMI 30-39.9) Mixed hyperlipidemia Diabetes mellitus Surgical History History of eye surgery Family History Father Cancer 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 Cognitive needs: No Hearing needs: No Vision needs: No Physical Exam Vital Signs: Last Vital Signs Pulse 64 07/18/25 14:11 BP 110/52 L 07/18/25 14:11 Pulse Ox 98 07/18/25 14:11 Oxygen Delivery Method Room Air 07/18/25 14:11 BMI result Body Mass Index 27.0 Results Reviewed Results Reviewed: Laboratory Last Values Glucose (Clinic) 207 mg/dL (60-115) H 07/18/25 14:18 Laboratory Tests 06/28/25 06/28/25 08:06 08:14 Creatinine 1.01 Estimated GFR > 60 Hemoglobin A1c % 8.3 H AST 37 ALT 47 H Triglycerides 182 H Cholesterol 162 LDL Cholesterol, Calc 99 HDL Cholesterol 27 L TSH 0.37 Urine Creatinine 204.64 Urine Microalbumin 9.0 Microalb/Creat Ratio 4.3 Assessment & Plan Assessment & Plan (1) Uncontrolled type 2 diabetes mellitus with hyperglycemia: Code(s): E11.65 - Type 2 diabetes mellitus with hyperglycemia Category: Medical (2) Mixed hyperlipidemia: Code(s): E78.2 - Mixed hyperlipidemia Category: Medical (3) Overweight (BMI 25.0-29.9): Code(s): E66.3 - Overweight Category: Medical Plan In summary this is a 55-year-old male with hyperlipidemia and uncontrolled type 2 diabetes. Discussed pathophysiology of Type II Diabetes Mellitus with the patient in detail.? I explained the retirement risks and complications associated with uncontrolled diabetes including nephropathy, neuropathy, peripheral vascular disease, retinopathy, increased risk of heart disease and stroke.? Diabetic diet reviewed. Declines referral to dietitian at this time. Continue to control portion sizes and avoid sugary foods and carbs to promote weight loss. CGM not covered with his insurance since he is not on insulin. Patient advised to bring glucometer to his next visit. Reviewed treatment of hypoglycemia. Glucose tablets sent to the pharmacy. Stop Januvia. Trial of Mounjaro 2.5 mg weekly. He denies contraindications to the medication. Side effects reviewed. Continue metformin 1000 mg twice daily. Follow up in 1 month for diabetic management. Medications: New glucose (Dex4 Glucose Quick Dissolve) until symptoms of low blood sugar are controlled 16 grams (4 x 4 gram) PO Q15M PRN 30 tabs 3RF hypoglycemia tirzepatide (Mounjaro) for 4 weeks 2.5 mg (0.5 mL) subcut QWEEK 2 mL 0RF Changed From lancets (FreeStyle Lancets) As directed 100 ea To lancets (FreeStyle Lancets) As directed to check glucose twice daily 100 ea 5RF From blood sugar diagnostic (FreeStyle Lite Strips) As directed once a day - Dx: E11.9 -- diabetes 100 ea 5RF E11.9 - Type 2 diabetes mellitus without complications To blood sugar diagnostic (FreeStyle Lite Strips) As directed twice daily to check blood sugar 100 ea 5RF E11.9 - Type 2 diabetes mellitus without complications Discontinued sitagliptin phosphate (Januvia) Discontinued Reason: Doctor's Order 100 mg PO DAILY 90 days 90 tabs 3RF E11.9 - Type 2 diabetes mellitus without complications Patient Instructions: Continue metformin 1000 mg twice daily Stop Januvia Start Mounjaro 2.5 mg once weekly If you experience low blood sugar (under 70), treat this by eating a chewable fruit candy like skittles or jelly beans (about 8 pieces), 4 ounces (1/2 cup) of fruit juice (not diet), 1 tablespoon of honey or 4 glucose tablets. If your blood sugar is under 50, take double the amount of one of the above. Recheck your blood sugar in 15 minutes. www.diabetes.org Coding Level of Care Code New Pt Level 4 (77503) Complex EM visit Add On G2211 Diagnoses Uncontrolled type 2 diabetes mellitus with hyperglycemia E11.65 Mixed hyperlipidemia E78.2 Overweight (BMI 25.0-29.9) E66.3
[2025-07-18 14:11] VITALS: BP 110/52; PULSE 64; O2SAT 98; BMI 27.0
[2025-07-18 14:22] LABS: Glucose, Whole Blood 207 mg/dL (60-115)
--- OUTSIDE RECORDS SUMMARY | 2025-07-18 18:32 | XMS_ITS | Clinical Summary ---
Author Organization 175 [facility] Address [address] [place] [address] Phone Care Team Providers Care Metal Framer Name Role Phone Juan Ngo MD Primary Care Provider [phone]- [phone] Social History Tobacco Use Types Packs/Day Years [...] 10:45 AM EDT Office Visit Orthopedic Surgery - [place] [address] [place] [phone] Kvng Azar, DPM [address] [place] [phone] Health Maintenance Due Date Last Done Comments [...] complete this topic Insurance [facility] MEDICAID - [place] Care Teams Metal Framer Relationship Specialty Start Date End Date Jaun Ngo MD [address] [place] [address] [address] [place] PCP - General Internal Medicine 01/19/25
== END 2025-07-18 15:16 | disposition home or self-care (01) ==
LOC: HO.ENCR 14:09
PROVIDERS: PCP Internal Medicine; Visit Provider Physician Assistant Medical
DX: E11.65 Type 2 diabetes mellitus with hyperglycemia (principal); E78.2 Mixed hyperlipidemia; E66.3 Overweight

== ENCOUNTER → 2025-07-18 14:08 | Outpatient (BNVA) | payer OTHER, SELFPAY | PROVIDERS: PCP Internal Medicine; Visit Provider Physician Assistant Medical | DX: E11.65 Type 2 diabetes mellitus with hyperglycemia (principal); E78.2 Mixed hyperlipidemia; E66.3 Overweight | CPT/HCPCS: 82947; 99202 ==